=== PATIENT | male | born 1965 | race Hispanic/Latino ===

== ENCOUNTER 2016-08-20 14:58 | Emergency (ER) | payer OTHER ==
[~2016-08-20] VITALS: Ht 167.6 cm; Wt 85.9 kg
[~2016-08-20 14:58] MED LIST: GABA-502 PO; LACT10SO60 PO; LISI10TA PO; LORA-305 PO; LORA1TAB PO; METO50TA3 PO; PHEN100C11 PO; SERT100T9 PO
[2016-08-20 16:02] VITALS: BP 141/85; PULSE 89; RESP 18; O2SAT 96
--- NOTE | 2016-08-20 18:12 | ED.REPORT ---
HPI-General Illness Date of Service Aug 20, 2016 ED Provider: Niall Rhodes MD This patient is a 51 year old male with a history of alcohol abuse, delirium tremens, and withdrawal seizures presenting to the ED complaining of left-sided chest pain that started 1 week ago. He also complains of withdrawal symptoms. Pt. states he normally drinks 4-6 24oz of beer daily. His last drink was at 1000 this morning. He admits to nausea and leg/ankle pain but denies vomiting or hematochezia. The pt. is requesting Crisis admission for detox. Nursing Notes Stated Complaint: DETOX Chief Complaint: Substance Abuse Nursing Notes Reviewed: Yes Allergies: Coded Allergies: caffeine (Verified Adverse Reaction, Mild, raises my heart rate too high, 07/20/16) Scheduled Gabapentin (Gabapentin) 300 Mg Capsule 300 MG PO TID Lisinopril (Lisinopril) 10 Mg Tablet 10 MG PO DAILY Metoprolol Tartrate (Metoprolol Tartrate) 50 Mg Tablet 50 MG PO BID Phenytoin Sodium Extended (Phenytoin Sodium Extended) 100 Mg Capsule 100 MG PO BID Sertraline HCl (Sertraline) 100 Mg Tablet 200 MG PO DAILY Scheduled PRN Lactulose (Lactulose) 20 Gm/30 Ml Solution 20 GM PO Q6H PRN PRN confusion Lorazepam (Lorazepam) 1 Mg Tablet 1 MG PO HS PRN PRN For Insomnia Lorazepam (Ativan) 2 Mg Tablet 2 MG PO TID PRN PRN Withdrawal Symptoms General Time Seen by MD: 18:07 Chief Complaint Chest pain Hx Obtained From: Patient Arrived By: Walk-in Sudden in Onset?: No Onset Occurred: 1 week ago Context of Onset: EtOH use Symptom Duration: Since onset Recent Healthcare: Recent doctor visit, Recent hospitalization Similar Sx Previous: Yes Past Medical History Past Medical History Notes: Most recent ED visit 10 day hospital stay discharged 07/04 ED visit 12/18/2015 ETOH (no crisis beds), 12/13/15 ETOH and HTN (LWOBS), 11/2015 ED visits x3 for ETOH among others Past Medical History Alcoholism Depression Seizures secondary to withdrawal HTN- taking Metoprolol PTSD Delirium tremen Chronic dental infection Carpal tunnel syndrome Low back pain 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 Physical Exam Vital Signs Vital Signs Date Time Temp Pulse Resp B/P Pulse Ox O2 Delivery O2 Flow Rate FiO2 08/20/16 21:34 36.4 80 16 147/80 91 Room Air 08/20/16 21:17 36.4 80 16 147/80 91 Room Air 08/20/16 16:02 37.2 89 18 141/85 96 Room Air Initial VS: Reviewed General/Constitutional: Well-developed, Well-nourished Head / Eyes: Atraumatic, Normocephalic, PERRL ENT: Mucous membranes moist, Conjunctiva normal, No scleral icterus Neck: Supple, Non-tender, Full range of motion Cardiovascular: Regular rate & rhythm, Heart sounds normal, Intact distal pulses Abdomen / GI: Soft, Non-tender Extremities: Vascular intact, Neuro intact Skin: Warm, Dry, No cyanosis Neurologic: Alert, Oriented, Nonfocal Psychiatric: Mood/affect normal, Behavior normal, Normal thought content Respiratory / Chest: Atraumatic, Breath sounds NL, Breath sounds = bilat, No respiratory distress Reproducible L chest tenderness Interpretation & Diagnostics Lab Results Interpretation Result Diagram: 08/20/16192408/20/161924 Test 08/20/16 19:25 08/20/16 19:43 White Blood Count 4.2th/mm3 (3.8-10.1) Red Blood Count 4.32mil/mm3 (4.40-5.80) Hemoglobin 13.7g/dL (13.8-17.2) Hematocrit 38.1% (41.0-50.0) Mean Corpuscular Volume 88.2fL (81-100) Mean Corpuscular Hemoglobin 31.7pg (27.0-35.0) Mean Corpuscular Hemoglobin Concent 36.0% (32.0-37.0) Red Cell Distribution Width 13.3% (12.3-15.4) Platelet Count 94bil/L (150-400) Neutrophils (%) (Auto) 58.0% (40-74) Lymphocytes (%) (Auto) 25.1% (14-46) Monocytes (%) (Auto) 14.7% (4-12) Eosinophils (%) (Auto) 1.2% (0-5) Basophils (%) (Auto) 0.5% (0-3) Sodium Level 133mEq/L (134-144) Potassium Level 3.8mEq/L (3.5-5.2) Chloride Level 94mEq/L (97-108) Carbon Dioxide Level 20mmol/L (18-29) Blood Urea Nitrogen 2mg/dL (6-24) Creatinine 0.43mg/dL (0.76-1.27) Estimat Glomerular Filtration Rate 220mL/min (>59) Glucose Level 104mg/dL (60-99) Calcium Level 9.0mg/dL (8.5-10.1) Magnesium Level 1.6mg/dL (1.6-2.6) Total Bilirubin 0.8mg/dL (0.0-1.2) Aspartate Amino Transf (AST/SGOT) 189U/L (0-50) Alanine Aminotransferase (ALT/SGPT) 94U/L (0-44) Alkaline Phosphatase 110U/L (25-150) Troponin T < 0.010ug/L (0.0-0.011) Total Protein 7.6g/dL (6.4-8.4) Albumin 4.3g/dL (3.4-5.0) Hold Cervantes Top Tube Received (Received) Hold Urine Received (Received) ECG Interpretation ECG Interpretation: Sinus rhythm with a rate 77 Repolarization no changed from previous EKG dated 07/20/16 Time: 19:09 Interpreted by: ED physician X-Ray Chest Interpretation Chest Xray Interpretation: IMPRESSION: No acute cardiopulmonary disease. Dictated by: Samuel Ortiz M.D. on 08/20/2016 at 19:30 View: Portable, 1 view Interpretation / Wet Read by: Interpret - Radiologist Re-Eval/Medical Decision Med Decision/Clinical Course 51-year-old male history of alcohol abuse, withdrawal seizures, DTs, chronic chest pain presenting requesting detox. Last drink was this morning. There are no beds available at detox. He also complains of chronic chest pain. EKG unchanged. Troponins negative. Chest pain is reproducible and resolved with Toradol. Suspect musculoskeletal etiology of today's chest pain. Patient plans to continue drinking. I have given him the number for crisis Center that he may call tomorrow to see if they have any beds. Return precautions regarding any chest pain, if he stops drinking, signs symptoms withdrawal or any other neurologic symptoms. Source of Hx: Old records Time of Eval: 21:00 Patient Status: Condition improved Re-Evaluation/Progress Note: Ready for discharge. Told pt. to call [facility] tomorrow to see if they have any beds available since none are today. Pt. understands and agrees with plan. All questions have been addressed. Counseled Regarding: Diagnosis, Need for follow-up, When/why to return to ED Discharge & Departure Primary Impression: Alcohol intoxication Complication of substance-induced condition: uncomplicated Qualified Code: F10.120 - Alcohol abuse with intoxication, uncomplicated Additional Impression: Non-cardiac chest pain Disposition: Home Discharge Condition All VS Reviewed: Yes Condition: Stable Patient Instructions: Abuse of Alcohol (ED), Alcohol Intoxication (ED), Alcohol Withdrawal (ED) Additional Instructions: Thank you for entrusting us with your care today. Please call [facility] tomorrow to see if there are any available beds since none are available today. Come back to the emergency room if you experience worsening chest pain, shortness of breath, alcohol withdrawl symptoms, seizure, confusion, or any other new or concerning symptoms. Referrals: [facility] (PCP) [facility] Scribe Attestation Portions of this note were transcribed by Deven Valles and Piedad Pressley. I, Dr. Rhodes personally performed the history, physical exam and medical decision-making; I reviewed and confirmed the accuracy of the information in the transcribed note. Signed by: Deven Valles and Jerry Colindres, 2015 and 8. copies to: [facility] ; [facility] Niall Rhodes MD Aug 20, 2016 18:12 Bridget Pressley [Piedad] Aug 20, 2016 18:52 DEVEN VALLES Aug 20, 2016 21:25
[2016-08-20] MEDS ORDERED: Ketorolac 30 mg/mL 2 mL Inj IM ONE (18:55)
--- NOTE | 2016-08-20 19:32 | DRSVH ---
PROCEDURE: X-RAY CHEST ONE VIEW, PORTABLE ([id number]) INDICATIONS: 51 year-old male with left chest pain. TECHNIQUE: One view of the chest was acquired. COMPARISON: [facility], CR, XR CHEST 1VW (PORTABLE), 05/01/2016, 1:03. [facility], CR, XR CHEST 1VW (PORTABLE), 04/25/2016, 11:33. [facility], CR, XR CHEST 1VW (PORT ABLE), 02/26/2016, 21:14. FINDINGS: Surgical changes and devices: None. Lungs and pleura: No pleural effusions or pneumothorax. Lungs are clear. Mediastinum: Mediastinal contours appear normal. Heart size is normal. Bones and chest wall: No suspicious bony lesions. Overlying soft tissues appear unremarkable. IMPRESSION: No acute cardiopulmonary disease. Dictated by: Samuel Ortiz M.D. on 08/20/2016 at 19:30 Approved by: Samuel Ortiz M.D. on 08/20/2016 at 19:30
[2016-08-20 19:36] LABS: BASOPHILS % (AUTO) 0.5 % (0-3); EOSINOPHILS % (AUTO) 1.2 % (0-5); MONOCYTES % (AUTO) 14.7 % (4-12); Mean Corpuscular Hemoglobin 31.7 pg (27.0-35.0); Mean Corpuscular Volume 88.2 fL (81-100); Platelet Count 94 bil/L (150-400)
[2016-08-20 20:17] LABS: Magnesium 1.6 mg/dL (1.6-2.6)
[2016-08-20 20:28] LABS: TROPONIN T < 0.010 ug/L (0.0-0.011)
[2016-08-20 21:17] VITALS: BP 147/80; PULSE 80; RESP 16; O2SAT 91
[2016-08-20 21:34] VITALS: BP 147/80; PULSE 80; RESP 16; O2SAT 91
--- NOTE | 2016-08-31 17:34 | NUR ---
Late entry note from 08/20/15 ED DEVELOPMENTAL SERVICES WORKER note: D/A: Pt is a 51 year old male with history of alcohol abuse who presents to the ED with his counselor with request for detox services. DEVELOPMENTAL SERVICES WORKER consult requested. DEVELOPMENTAL SERVICES WORKER assisted pt in screening with crisis respite, however no bed was available. Last full chemical dependency assessment was completed 06/27 and as DEVELOPMENTAL SERVICES WORKER shift was ending fully CD assessment was not completed. Please reference full CD assessment from 06/27/16. P: Pt has prescreened with crisis respite however no beds are available. Pt continues to undergo medical detox and if discharged is instructed to follow up with crisis respite on a daily basis. ED MD aware and in agreement with plan. Ellis Yang MSW
== END 2016-08-20 21:41 | disposition home or self-care (01) ==
LOC: SED 14:58
DX: F10.120 Alcohol abuse with intoxication, uncomplicated (principal); R07.89 Other chest pain; I10 Essential (primary) hypertension; Z87.891 Personal history of nicotine dependence; Z59.0 Homelessness; F43.10 Post-traumatic stress disorder, unspecified
CPT/HCPCS: 36415; 71010; 80053; 83735; 84484; 85025; 93005; 96372; 99285; J1885

== ENCOUNTER 2016-08-23 12:21 | Emergency (ER) | payer OTHER ==
[2016-08-23 12:22] VITALS: BP 131/71; PULSE 73; RESP 15; O2SAT 99
--- NOTE | 2016-08-23 12:43 | ED.REPORT ---
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 Associated symptoms include melena and nausea. He reports that he had a few beers this morning. He denies vomiting, fever, or any other symptoms. His MILLY upon arrival is .274 Nursing Notes Stated Complaint: DIZZINESS Chief Complaint: General Complaint Nursing Notes Reviewed: Yes Allergies: Coded Allergies: caffeine (Verified Adverse Reaction, Mild, raises my heart rate too high, 07/20/16) Scheduled Gabapentin (Gabapentin) 300 Mg Capsule 300 MG PO TID Lisinopril (Lisinopril) 10 Mg Tablet 10 MG PO DAILY Metoprolol Tartrate (Metoprolol Tartrate) 50 Mg Tablet 50 MG PO BID Phenytoin Sodium Extended (Phenytoin Sodium Extended) 100 Mg Capsule 100 MG PO BID Sertraline HCl (Sertraline) 100 Mg Tablet 200 MG PO DAILY Scheduled PRN Lactulose (Lactulose) 20 Gm/30 Ml Solution 20 GM PO Q6H PRN PRN confusion Lorazepam (Lorazepam) 1 Mg Tablet 1 MG PO HS PRN PRN For Insomnia Lorazepam (Ativan) 2 Mg Tablet 2 MG PO TID PRN PRN Withdrawal Symptoms General Time Seen by MD: 12:42 Chief Complaint Dizziness Hx Obtained From: Patient Arrived By: Ambulance Sudden in Onset?: Yes Past Medical History Past Medical History Notes: Most recent ED visit 08/20/16 10 day hospital stay discharged 07/04 ED visit 12/18/2015 ETOH (no crisis beds), 12/13/15 ETOH and HTN (LWOBS), 11/2015 ED visits x3 for ETOH among others Past Medical History Alcoholism Depression Seizures secondary to withdrawal HTN- taking Metoprolol PTSD Delirium tremen Chronic dental infection Carpal tunnel syndrome Low back pain 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 Physical Exam Vital Signs Vital Signs Date Time Temp Pulse Resp B/P Pulse Ox O2 Delivery O2 Flow Rate FiO2 08/23/16 14:52 36.2 89 16 160/89 97 Room Air 08/23/16 12:22 36.8 73 15 131/71 99 Room Air Initial VS: Reviewed Head / Eyes: Atraumatic, Normocephalic Neck: Full range of motion Respiratory: Breath sounds normal, Clear to auscultation, No respiratory distress Cardiovascular: Regular rate & rhythm, Heart sounds normal, Intact distal pulses Extremities: Vascular intact, Neuro intact Skin: Warm, Dry General/Constitutional: Well developed Appearance / Presentation: Positive: Intoxicated Abdomen: No guarding Tenderness/Guarding/Rebound: Positive: Tender diffuse Interpretation & Diagnostics Lab Results Interpretation Result Diagram: 08/23/16 1302 08/23/16 1302 Test 08/23/16 13:02 08/23/16 13:20 White Blood Count 5.2th/mm3 (3.8-10.1) Red Blood Count 4.56mil/mm3 (4.40-5.80) Hemoglobin 14.5g/dL (13.8-17.2) Hematocrit 41.8% (41.0-50.0) Mean Corpuscular Volume 91.7fL (81-100) Mean Corpuscular Hemoglobin 31.8pg (27.0-35.0) Mean Corpuscular Hemoglobin Concent 34.7% (32.0-37.0) Red Cell Distribution Width 14.4% (12.3-15.4) Platelet Count 134bil/L (150-400) Neutrophils (%) (Auto) 59.1% (40-74) Lymphocytes (%) (Auto) 24.7% (14-46) Monocytes (%) (Auto) 12.9% (4-12) Eosinophils (%) (Auto) 1.0% (0-5) Basophils (%) (Auto) 0.8% (0-3) Prothrombin Time 10.4sec (8.1-12.5) Prothromb Time International Ratio 0.97ratio Sodium Level 138mEq/L (134-144) Potassium Level 4.1mEq/L (3.5-5.2) Chloride Level 99mEq/L (97-108) Carbon Dioxide Level 21mmol/L (18-29) Blood Urea Nitrogen 6mg/dL (6-24) Creatinine 0.61mg/dL (0.76-1.27) Estimat Glomerular Filtration Rate 147mL/min (>59) Glucose Level 104mg/dL (60-99) Calcium Level 8.8mg/dL (8.5-10.1) Total Bilirubin 0.5mg/dL (0.0-1.2) Aspartate Amino Transf (AST/SGOT) 217U/L (0-50) Alanine Aminotransferase (ALT/SGPT) 139U/L (0-44) Alkaline Phosphatase 111U/L (25-150) Total Protein 8.1g/dL (6.4-8.4) Albumin 4.6g/dL (3.4-5.0) Hold Urine Received (Received) Lab Results Interpretation: Tox screen positive for THC ECG Interpretation ECG Interpretation: Sinus rate 72 Time: 13:50 Interpreted by: ED physician Re-Eval/Medical Decision Time of Eval: 14:02 Re-Evaluation/Progress Note: Discussed plan for discharge if road test passed. Patient understands and agrees with plan. All questions addressed at this time. Time of Eval: 14:46 Re-Evaluation/Progress Note: Discussed discharge. Patient understands and agrees with plan. All questions addressed at this time. Counseled Regarding: Diagnosis, Lab results, Need for follow-up, When/why to return to ED Discharge & Departure Primary Impression: Dizziness Additional Impression: Alcohol intoxication Complication of substance-induced condition: uncomplicated Qualified Code: F10.120 - Alcohol abuse with intoxication, uncomplicated Disposition: Home Discharge Condition All VS Reviewed: Yes Condition: Improved Patient Instructions: Alcohol Intoxication (ED) Additional Instructions: No dangerous cause for your lightheadedness is discovered today. I strongly suspect that her alcohol consumption is playing a role here. Recommend he follow up with [facility] to help with your alcohol abuse. Follow-up with your primary care provider to discuss further investigation as needed. Referrals: [facility] (PCP) Scribe Attestation Portions of this note were transcribed by Clarice Duval. I, Dr. Harmon personally performed the history, physical exam and medical decision-making; I reviewed and confirmed the accuracy of the information in the transcribed note. Signed by: Clarice Duval 08/23/16, 1683 copies to: [facility] Chase Harmon MD Aug 23, 2016 12:43 CLARICE DUVAL Aug 23, 2016 13:43
[2016-08-23 13:07] LABS: BASOPHILS % (AUTO) 0.8 % (0-3); MONOCYTES % (AUTO) 12.9 % (4-12); Mean Corpuscular Hemoglobin 31.8 pg (27.0-35.0); Mean Corpuscular Volume 91.7 fL (81-100); NEUTROPHILS % (AUTO) 59.1 % (40-74); Platelet Count 134 bil/L (150-400)
[2016-08-23 13:10] LABS: INR 0.97 ratio
[2016-08-23 14:52] VITALS: BP 160/89; PULSE 89; RESP 16; O2SAT 97
== END 2016-08-23 14:54 | disposition home or self-care (01) ==
LOC: EDBD 12:21 → SED 12:21
DX: R42 Dizziness and giddiness (principal); F10.120 Alcohol abuse with intoxication, uncomplicated; I10 Essential (primary) hypertension; Z87.891 Personal history of nicotine dependence

== ENCOUNTER 2016-08-29 13:28 | Emergency (ER) | payer MEDICAID, OTHER ==
[~2016-08-29] VITALS: Ht 172.7 cm; Wt 83.2 kg
[2016-08-29 13:31] VITALS: BP 127/80; PULSE 77; RESP 16; O2SAT 98
== END 2016-08-29 14:21 | disposition left against medical advice (07) ==
LOC: SED 13:28
DX: Z53.21 Procedure and treatment not carried out due to patient leaving prior to being seen by health care provider (principal)

== ENCOUNTER 2016-09-25 16:33 | Inpatient (IN) | payer OTHER ==
[~2016-09-25] VITALS: Ht 167.6 cm; Wt 78.5 kg
[2016-09-25] VITALS (9 sets, daily range): BP systolic 123–155; BP diastolic 60–67; PULSE 73–86; RESP 18–24; O2SAT 91–96
--- NOTE | 2016-09-25 16:30 | ED.REPORT ---
HPI-Seizure Date of Service Sep 25, 2016 ED Provider: Nursing Notes Stated Complaint: ALCOHOL WITHDRAWAL Allergies: Coded Allergies: caffeine (Verified Adverse Reaction, Mild, raises my heart rate too high, 08/29/16) Scheduled Gabapentin (Gabapentin) 300 Mg Capsule 300 MG PO TID Lisinopril (Lisinopril) 10 Mg Tablet 10 MG PO DAILY Metoprolol Tartrate (Metoprolol Tartrate) 50 Mg Tablet 50 MG PO BID Phenytoin Sodium Extended (Phenytoin Sodium Extended) 100 Mg Capsule 100 MG PO BID Sertraline HCl (Sertraline) 100 Mg Tablet 200 MG PO DAILY Scheduled PRN Lactulose (Lactulose) 20 Gm/30 Ml Solution 20 GM PO Q6H PRN PRN confusion Lorazepam (Lorazepam) 1 Mg Tablet 1 MG PO HS PRN PRN For Insomnia Lorazepam (Ativan) 2 Mg Tablet 2 MG PO TID PRN PRN Withdrawal Symptoms Past Medical History Past Medical History Notes: Most recent ED visit 08/20/16 10 day hospital stay discharged 07/04 ED visit 12/18/2015 ETOH (no crisis beds), 12/13/15 ETOH and HTN (LWOBS), 11/2015 ED visits x3 for ETOH among others Past Medical History Alcoholism Depression Seizures secondary to withdrawal HTN- taking Metoprolol PTSD Delirium tremen Chronic dental infection Carpal tunnel syndrome Low back pain 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
[2016-09-25] MEDS ORDERED: Thiamine Inj 100 MG, Folic Acid Inj 1 MG, Magnesium Sulfate 50% Inj 2 GM, Multivitamins... IV ONE ×10 (16:40→21:30)
[2016-09-25 17:09] LABS: BASOPHILS % (AUTO) 0.5 % (0-3); EOSINOPHILS % (AUTO) 0.2 % (0-5); MONOCYTES % (AUTO) 13.8 % (4-12); Mean Corpuscular Volume 96.9 fL (81-100); NEUTROPHILS % (AUTO) 58.7 % (40-74); Platelet Count 143 bil/L (150-400)
--- NOTE | 2016-09-25 18:34 | ED.REPORT ---
HPI-General Illness Date of Service Sep 25, 2016 ED Provider: Brenton Smith MD Pt is a 51 year old male well known in this department with a hx of EtOH abuse, alcohol withdrawal seizures and HTN presenting to the ED via EMS after a witnessed seizure just prior to arrival. He reports being very tremulous, and denies nausea, vomiting, or other complaints. Medics gave 5mg versed en route. He reports last drinking EtOH 2 or 3 days ago. Nursing Notes Stated Complaint: ALCOHOL WITHDRAWAL Chief Complaint: Substance Abuse Nursing Notes Reviewed: Yes Allergies: Coded Allergies: caffeine (Verified Adverse Reaction, Mild, raises my heart rate too high, 08/29/16) Scheduled Gabapentin (Gabapentin) 300 Mg Capsule 300 MG PO TID Lisinopril (Lisinopril) 10 Mg Tablet 10 MG PO DAILY Metoprolol Tartrate (Metoprolol Tartrate) 50 Mg Tablet 50 MG PO BID Phenytoin Sodium Extended (Phenytoin Sodium Extended) 100 Mg Capsule 100 MG PO BID Sertraline HCl (Sertraline) 100 Mg Tablet 200 MG PO DAILY Scheduled PRN Lactulose (Lactulose) 20 Gm/30 Ml Solution 20 GM PO Q6H PRN PRN confusion Lorazepam (Lorazepam) 1 Mg Tablet 1 MG PO HS PRN PRN For Insomnia Lorazepam (Ativan) 2 Mg Tablet 2 MG PO TID PRN PRN Withdrawal Symptoms General Time Seen by MD: 16:36 Chief Complaint Seizure Hx Obtained From: Patient, EMS Arrived By: Ambulance Sudden in Onset?: Yes Onset Occurred: Just prior to arrival Context of Onset: EtOH use Severity: Current: No pain currently Severity: Maximum: No pain Recent Healthcare: No recent doctor visit, No recent hospitalization Similar Sx Previous: Yes Past Medical History Past Medical History Notes: Most recent ED visit 08/20/16 10 day hospital stay discharged 07/04 ED visit 12/18/2015 ETOH (no crisis beds), 12/13/15 ETOH and HTN (LWOBS), 11/2015 ED visits x3 for ETOH among others Past Medical History Alcoholism Depression Seizures secondary to withdrawal HTN- taking Metoprolol PTSD Delirium tremen Chronic dental infection Carpal tunnel syndrome Low back pain 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 Physical Exam Vital Signs Vital Signs Date Time Temp Pulse Resp B/P Pulse Ox O2 Delivery O2 Flow Rate FiO2 09/25/16 19:18 73 19 150/63 95 Room Air 09/25/16 18:30 75 22 155/67 94 Room Air 09/25/16 18:00 73 20 140/66 95 Room Air 09/25/16 17:30 74 21 134/60 95 Room Air 09/25/16 17:00 79 23 134/65 96 Room Air 09/25/16 16:35 86 24 123/64 91 Room Air Initial VS: Reviewed ENT: Mucous membranes moist, Conjunctiva normal, No scleral icterus Neck: Supple, Non-tender, Full range of motion Respiratory: Breath sounds normal, Clear to auscultation, No respiratory distress Abdomen / GI: Soft, Non-tender, No guarding, No rebound, No distention Extremities: Vascular intact, Neuro intact, No swelling, No tenderness Skin: Warm, Dry, No cyanosis Psychiatric: Mood/affect normal, Behavior normal, Normal thought content Tremulous Head / Eyes: Atraumatic, Normocephalic, PERRL, EOMI Cardiovascular: Regular rhythm, Heart sounds NL, No gallop, No murmurs, No rubs Heart Rate / Rhythm: Positive: Tachycardia Skin: No rash, Warm Diaphoretic Neurologic: Speech NL, No motor deficits, Cerebellar NL Mental Status: Positive: Disoriented to place Alert, oriented to person, month and year but not to place. Moving all extremities equally and normally. Initial CIWA score of 25. Interpretation & Diagnostics Lab Results Interpretation Result Diagram: 09/25/16 1655 09/25/16 1655 Test 09/25/16 16:51 09/25/16 16:55 Troponin T 0.010ug/L (0.0-0.011) Pro-B-Type Natriuretic Peptide 52.87pg/mL (0-121) White Blood Count 6.2th/mm3 (3.8-10.1) Red Blood Count 4.91mil/mm3 (4.40-5.80) Hemoglobin 16.2g/dL (13.8-17.2) Hematocrit 47.6% (41.0-50.0) Mean Corpuscular Volume 96.9fL (81-100) Mean Corpuscular Hemoglobin 33.0pg (27.0-35.0) Mean Corpuscular Hemoglobin Concent 34.0% (32.0-37.0) Red Cell Distribution Width 13.2% (12.3-15.4) Platelet Count 143bil/L (150-400) Neutrophils (%) (Auto) 58.7% (40-74) Lymphocytes (%) (Auto) 26.5% (14-46) Monocytes (%) (Auto) 13.8% (4-12) Eosinophils (%) (Auto) 0.2% (0-5) Basophils (%) (Auto) 0.5% (0-3) Sodium Level 135mEq/L (134-144) Potassium Level 4.0mEq/L (3.5-5.2) Chloride Level 88mEq/L (97-108) Carbon Dioxide Level 14mmol/L (18-29) Blood Urea Nitrogen 12mg/dL (6-24) Creatinine 0.75mg/dL (0.76-1.27) Estimat Glomerular Filtration Rate 116mL/min (>59) Glucose Level 122mg/dL (60-99) Calcium Level 9.9mg/dL (8.5-10.1) Total Bilirubin 1.2mg/dL (0.0-1.2) Aspartate Amino Transf (AST/SGOT) 142U/L (0-50) Alanine Aminotransferase (ALT/SGPT) 100U/L (0-44) Alkaline Phosphatase 101U/L (25-150) Total Protein 9.0g/dL (6.4-8.4) Albumin 5.5g/dL (3.4-5.0) Alcohol, Quantitative < 10mg/dL (0-10) Re-Eval/Medical Decision Med Decision/Clinical Course 48-year-old male with alcohol withdrawal seizure. Initial CIWA score of 25. Even a banana bag and IV Valium 5mg 3. Still has significant tremors and is not fully oriented. Will be admitted to the hospitalist service. Time of Eval: 19:14 Patient Status: Condition improved Re-Evaluation/Progress Note: CIWA score now 21. Consultation : Referral / Consult Name: Rc Mora MD Consulted With: Hospitalist Call Returned at: 19:41 Separating Machine Operator: Will see patient, Agrees with plan, Accepts admit Counseled Regarding: Diagnosis, Lab results, Need for follow-up, When/why to return to ED Discharge & Departure Primary Impression: Alcohol withdrawal Complication of substance-induced condition: with delirium Qualified Code: F10.231 - Alcohol dependence with withdrawal delirium Disposition: ADMITTED TO HOSPITAL Discharge Condition All VS Reviewed: Yes Condition: Improved Referrals: [facility] (PCP) [place] Attestation Portions of this note were transcribed by Ashley Salcedo. I, Dr. Smith personally performed the history, physical exam and medical decision-making; I reviewed and confirmed the accuracy of the information in the transcribed note. Signed by : Jerry Carvajal, 09/25/2016 and 1943. copies to: [facility] Brenton Smith MD Sep 25, 2016 18:34 ASHLEY SALCEDO Sep 25, 2016 18:39
[2016-09-25] MEDS ORDERED: Alum-Mag Hydrox-Simeth 30 mL Suspension PO PRN (20:45)
[2016-09-25] MEDS ORDERED: Ondansetron 2 mg/mL 2 mL Inj IVPUSH PRN (20:45)
[2016-09-25] MEDS ORDERED: Lactulose 20 Gm/30 mL 30 mL Syrup PO PRN (21:00)
--- NOTE | 2016-09-25 21:45 | NUR ---
Arrival Pt arrived on the floor via gurney. Awake and oriented x3. Severe tremors noted. Pt able to answer questions appropriately.
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
[2016-09-25 21:53] LABS: TROPONIN T 0.01 ug/L (0.0-0.011)
[2016-09-25] MEDS ORDERED: levETIRAcetam Inj 1,000 MG in 0.9% Sodium Chloride 100 ML IV ONE (22:15)
[2016-09-25] MEDS ORDERED: 0.9% Sodium Chloride 250 ML ONE (22:17)
[2016-09-25] MEDS: cloNIDine 0.1 mg Tablet PO PRN (22:54)
--- NOTE | 2016-09-25 23:00 | NUR ---
Admission Pt alert and oriented and able to answer questions. Was put on 2L O2 via nasal cannula and bed pads for seizure precautions are in place. Pt c/o constant BEEBE and pain in right ankle r/t fracture. Pt up to bed side commode but very unsteady due to severe tremors from withdrawal. Pt c/o diarrhea but passing mostly flatus on commode. Med rec not completed due to pt unable to provide dosages, will relay plan to day shift to complete med rec. Guaiac and MRSA samples have been sent to lab for analysis. Pt was informed to use call light when needing to use the commode and bed alarm is on.
[2016-09-25 23:29] LABS: INR 1.02 ratio
[2016-09-25 23:42] LABS: TROPONIN T 0.01 ug/L (0.0-0.011)
[2016-09-25 23:52] LABS: Magnesium 2.4 mg/dL (1.6-2.6); Phosphorus 3.5 mg/dL (2.5-4.9)
[2016-09-26] VITALS (7 sets, daily range): BP systolic 106–130; BP diastolic 52–66; PULSE 63–97; RESP 18–26; O2SAT 95–97
[2016-09-26] MEDS: Dexmedetomidine 400 mCg/100 mL NS Premix IV SCH ×2 (03:10→11:31)
[2016-09-26 05:12] LABS: Mean Corpuscular Hemoglobin 32.7 pg (27.0-35.0); Mean Corpuscular Volume 94.5 fL (81-100)
--- NOTE | 2016-09-26 06:19 | NUR ---
Shift Note Pt on CIWA protocol scoring highest if 23 and lowest of 14. Valium did not seem to be helping with severe tremors, was made aware and Precedex was ordered and started at 0.2-0.3mcg/kg/hr. Pt is on K/Mg protocol as well as seizure precautions, pads are in place. Liquid diet, tolerating ice water and apple juice. Guaiac, MRSA and urine samples sent to lab. Pt c/o BEEBE of 7/10 on pain scale on admittance, has dropped down to 0/10 recently. Has mild itch on lower back that comes and goes. Hx of suicide attempts but has signed no harm agreement. Med rec was not done, pt was unable to provide complete list. Pt informed on use of call light and bed alarm is on. Addendum: 09/26/16 at 0637 by NADINE BEARD Preceptor ARNOLDO JcasipiARNOLDO agree and verified student nurse note. Addendum: 09/26/16 at 0639 by ROGERIO ROBERSON RN Preceptor ARNOLDO Mccray verified and agree with note.
[2016-09-26] MEDS ORDERED: 0.9% Sodium Chloride 500 ML ONE (07:27)
[2016-09-26] MEDS: Multivit-Miner-Folic Acid-Iron Tablet PO SCH (08:59)
--- NOTE | 2016-09-26 09:08 | NUR ---
Social Work Note: Brief Note Data& Assessment: EMR reviewed. SW received order to meet with pt regarding Substance abuse. Dion Treviño is a 51 year old male admitted on 1965 for ETOH withdrawal with seizures after he ran out of money for alcohol 3 days ago. Pt has [employer] insurance coverage. Pt goes to [facility] for primary care. Pt lives in [place] alone and is independent at baseline. Per previous hospital admissions, pt has a hx of SI and long hx of ETOH use. Pt is experiencing tremors and high CIWA scores a this time with the lowest scores of 14. SW to meet with pt at bedside regarding CD assessment and resources when appropriate. [phone] Pt has a hx of transporting back home via [facility] transportation. SW to continue to follow for medical progression and CD assessment. Plan: Anticipated discharge back to previous living situation via [facility] transportation when medically ready. SW to continue to follow for medical progression and CD assessment. SALOME Petit
--- NOTE | 2016-09-26 10:28 | DRSVH ---
PROCEDURE: US ABDOMEN INDICATIONS: transmamintis TECHNIQUE: Real-time scanning was performed of the abdominal and retroperitoneal organs, with image documentatio n. COMPARISON: None. FINDINGS: Liver length: 17.58 cm Gallbladder Wall Thickness: 1.90 mm CHD: 2.60 mm CBD: 3 mm Spleen length: 10.57 cm Right kidney length: 10.77 cm Left kidney length: 9.82 cm Aorta(Proximal): 2.50 cm Aorta(Mid): 1.92 cm Aorta(Distal): 1.83 cm RCIA: 1.32 cm LCIA: 1.47 cm Liver: Liver is diffusely increased in echogenicity. No focal hepatic abnormalities identified. No rmal hepatic size. Gallbladder: Normal gallbladder. Biliary ducts: Intrahepatic bile ducts are non-dilated. Extrahepatic bile duct caliber is normal. Normal is 6-7 mm or less in diameter, or 10 mm or less post-cholecystectomy. Pancreas: Visualized portions of the pancreas are sonographically normal. Spleen: Spleen is normal in size and homogeneous in echotexture. Kidneys: Kidneys are normal in size and echotexture. No hydronephrosis or nephrolithiasis. No lawrence d masses. Aorta: Visualized aorta is normal in caliber at less than 3 cm. Iliacs: Proximal common iliac arteries are normal in caliber at less than 2.5 cm. IVC: Intrahepatic inferior vena cava is patent. Miscellaneous: No free abdominal fluid. IMPRESSION: Diffusely increased hepatic echotexture. This finding is most likely secondary to hepa tic fatty infiltration although other hepatocellular disease may have a similar appearance. Recommend clinical correlation.. Dictated by: Xavier CANALES Interpreted: Jefry Gastelum MD on 09/26/2016 at 10:27 Transcribed by: INDIRA on 09/26/2016 at 10:27 Approved by: Jefry Gastelum M.D. on 09/26/2016 at 12:44
--- NOTE | 2016-09-26 13:13 | NUR ---
Note Patient denied having pain, chest pain or discomfort. Patient remained disoriented to date. This morning he was not sure where he was and why. This afternoon patient seem more oriented to place- he stated: I know I am in the hospital. Patient was able to make his needs know and use his call light appropriately. He remained slightly unsteady on his feet and continued to required assist with transfer from bed to commode/chair. Patient was taking PO fluids and clear liquid diet well. He stated felling hungry- consulted with MD advance diet to soft. CIWA score under 10-Precedex drip infusion continued, Valium PRN when appropriate- MD aware.
--- NOTE | 2016-09-26 13:31 | DRSVH ---
[facility] [address] [place] [address] Echocardiogram Report Name: GONZALO YANCYE JStudy Date : 09/26/2016 Height: 66 in Hospital Exam Location: [facility] Weight: 171 lb Gender: Male BSA: 1.9 m2 : 1965 Age: 51 yrs BP: 121/66 mmHg Reason For Study: CHEST PAIN, PALPITATIONS Ordering Physician: Performed By: Juventino Garcia Interpretation Summary The left ventricle is normal in size. The ejection fraction is estimated to be 60-65%. The right ventricle is normal in size and function. No significant valvular pathology seen. Procedure: A two-dimensional transthoracic echocardiogram with color flow and Doppler was performed. The study quality was technically good. There is no prior echocardiogram noted for this patient. The patient was in normal sinus rhythm during the exam. Left Ventricle: The left ventricle is normal in size. There is normal left ventricular wall thickness. There is no thrombus. The ejection fraction is estimated to be 60-65%. There are no focal wall motion abnormalities. Spectral Doppler of the mitral valve shows a normal E/A wave ratio. Right Ventricle: The right ventricle is normal in size and function. Atria: Both atria are normal in size. The interatrial septum is intact with no evidence for an atrial septal defect. Mitral Valve: There is mild mitral annular calcification. There is trace mitral regurgitation. Aortic Valve: The aortic valve is trileaflet. The aortic valve opens well. There is no aortic valve stenosis. There is trace aortic regurgitation. Tricuspid Valve: The tricuspid valve is normal in structure and function. Pulmonary artery pressures cannot be estimated because of the lack of a measurable TR jet velocity. There is trace tricuspid regurgitation. Pulmonic Valve: The pulmonic valve is not well seen, but is grossly normal. There is trace pulmonic regurgitation. Great Vessels: The aortic root is normal size. The dimensions of the ascending aorta are normal. The pulmonary artery is normal size. The IVC is of normal diameter and collapses greater than 50% with a sniff. This suggests a low right atrial pressure of 3 mm Hg. Pericardium/ Pleura There is no pericardial effusion. There is no pleural effusion. MMode/2D Measurements & Calculations LVIDd: 4.3 cm LA dimension: 4.4 cm RA long axis Ao root diam LVIDs: 2.7 cm FS: 36.7 % LA A2 area: 21.0 cm RA area Aortic Jxn: 2.3 cm EPSS: 0.52 cm LA A4 area: 21.2 cm asc Aorta Diam IVSd: 0.75 cm LA length (vol) : 16.6 cm LVPWd: 0.80 cm RA vol Ao Arch Diam (Prox LA vol: 61.9 ml : 49.8 ml Trans): 2.7 cm LA vol index RA : 26.6 mm2 IVC diam: 1.5 cm LV hernadez. diameter/BSA LV sys. diameter/BSA RVD1 (basal) RVD2 (mid): 3.2 cm (cm/m^2): 2.3 (cm/m^2): 1.4 Doppler Measurements & Calculations Ao V2 max MV E max cuba MV E/A: 1.1 PA V2 max: 68.6 cm/sec : 157.6 cm/sec : 78.4 cm/sec Med Peak E' [place] PA mean P.2 mmHg Ao max PG MV A max cuba PA Accel Time: 0.10 sec : 9.9 mmHg : 69.2 cm/sec E/E' med: 10.7 Ao mean PG Pulm A Revs Dur : 5.9 mmHg MV A dur: 0.13 sec MV dec time Ao V2 mean PA V2 mean Pulm A Revs Dur - MV A : 0.19 sec : 116.4 cm/sec : 51.7 cm/sec Dur: -0.06 msec Ao V2 VTI: 32.3 cmPA pr(Accel) : 36.6 mmHg Reading Physician:JESSIKA
--- NOTE | 2016-09-26 13:45 | NUR ---
NUTRITION ASSESSMENT Assess: Pt is a 51 yo male admitted w/ ETOH withdrawl and seizures. Pt has a history of alcohol and marijuana abuse, and history of seizures. Pt on CIWA protocol with score progressively decreasing from 23 to 10. Pt was tolerating CL diet, and advanced to soft per MD. Pt has recent admissions, but wt appears relatively stable. PMHx: HTN, depression, acid reflux, chronic low back pain LABS: Reviewed. Na 130, Cl 94, Supervisor Frame Sample And Pattern 0.59, Gluc 115, AST 76, ALT 60, Alb 4.0 MEDICATIONS: Banana bag (x 2), vitamin, Vitamin B1, Pepcid CURRENT DIET: Soft PO 50% x 1 meal GI symptoms/stool: BM x 1 (09/25) some diarrhea noted SKIN: Hang 16 no other skin issues noted ANTHROPOMETRICS: Current Wt: 77.7 kg BMI: 27.6 kg/m2 IBW: 63.8 kg Previous Admit Wt: 79.3 kg (06/27) 2% wt loss in last 2 months ESTIMATED NEEDS: Calories: 8929-0096 kcal/day (25-30 kcal/kg BW) Protein: 80-95 g/day (1-1.0 g/kg BW) Fluids: ~2000 ml/day (1 kcal/ml/day) NUTRITION DIAGNOSIS: 1) Inadequate oral intake related to ETOH withdrawl as evidenced PO intake 50% and slight wt loss over last couple months. INTERVENTION: 1) Add Ensure to L&D trays. MONITOR/EVALUATE: Diet advancement, PO intake, GI, wt, labs, nutrition status, POC. Will continue to monitor per moderate nutritional risk guidelines. Addendum: 09/26/16 at [address] Student documentation reviewed and I agree with the above assessment. Nadine Hastings, MS, RDN, CD
--- NOTE | 2016-09-26 15:10 | NUR ---
spiritual care: pt request Visited with pt regarding themes of [place], addiction, and health. Offered a prayer and blessing before leaving the room. Spiritual care will continue to follow as needed.
--- NOTE | 2016-09-26 17:15 | NUR ---
Social Work Note: Attempted CD Assessment Data& Assessment: SW attempted to meet with pt at bedside regarding CD assessment. Pt requested that SW follow up for CD assessment another time due to not feeling well. SW to continue to follow. SW spoke to pt Rn [facility] Ara Hendricks who explained she plans to transport pt home when medically ready and plans to visit pt at bedside tomorrow 09/27/2016. SW confirmed that pt is agreeable to this plan. Pt denies any needs at this time. SW to continue to follow. Plan: Anticipated discharge home via SUSAN Hendricks when medically ready. SW to follow up with pt regarding CD assessment and resources. Pt denies any needs at this time. SW to continue to follow. SALOME Petit
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
[2016-09-27] VITALS (7 sets, daily range): BP systolic 128–166; BP diastolic 75–84; PULSE 64–76; RESP 16–21; O2SAT 94–96
[2016-09-27] MEDS: Dexmedetomidine 400 mCg/100 mL NS Premix IV SCH ×3 (01:28→16:29)
[2016-09-27 04:32] LABS: BASOPHILS % (AUTO) 0.4 % (0-3); EOSINOPHILS % (AUTO) 1.1 % (0-5); MONOCYTES % (AUTO) 10.1 % (4-12); Mean Corpuscular Volume 93.2 fL (81-100); NEUTROPHILS % (AUTO) 59.5 % (40-74); Platelet Count 72 bil/L (150-400)
--- NOTE | 2016-09-27 06:18 | NUR ---
Pt on precedex A&O X 2-[address] Noticable tremors and CIWA 10-15, valium given with moderate effect. Ate all of dinner and oral intake of juice around 1500. Good urine output. Afebrile, a bit hypertensive 160's systolic othe VSS. Was finally able to get some sleep with the additional titration of precedex and decreased stimulation. Appropriate and occasional forgetful and impulsive when needed to use the toilet. Will continue to support and monitor.
[2016-09-27] MEDS ORDERED: 0.9% Sodium Chloride 250 ML ONE (07:31)
[2016-09-27 08:11] LABS: Vitamin B12 603 pg/mL (211-946)
[2016-09-27] MEDS: Multivit-Miner-Folic Acid-Iron Tablet PO SCH (08:55)
[2016-09-27 11:07] LABS: Hepatitis A Antibody IgM Negative (Negative); Hepatitis B Core Antibody IgM Negative (Negative)
--- NOTE | 2016-09-27 12:38 | NUR ---
CIWA/comfort level Patient denied having pain or discomfort today. Precedex drip remained at 0.7mcg/kg/k- CIWA score was 5-8. Patient stated felling overall better however his upper extremely tremors continued especially with arms extended. Patient was able to use his call light but continued to require assist with transfer from bed to chair/commode
--- NOTE | 2016-09-27 22:15 | PCM.PNMED ---
Subjective Date of Service Sep 27, 2016 Subjective Mr. 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 Today is hospital day 3. Overnight: CIWA score 10-15 This morning he has a dry mouth and continues to have tremors. He denies blood in his stools and dark, tarry stools. He does not have fever, chills, cough, or dysuria. He reports a history of liver problems from alcohol. Exam Vital Signs Vital Sign - Last Date Time Temp Pulse Resp B/P Pulse Ox O2 Delivery O2 Flow Rate FiO2 09/27/16 20:00 67 09/27/16 19:30 36.6 16 143/78 96 Room Air 09/27/16 07:30 2.00 Intake and Output 09/26/16 09/26/16 09/27/16 Cumulative From/Thru 15:00 23:00 07:00 09/25/16 19:03 - 09/27/16 04:30 Intake Total 1842 ml 397 ml 6378 ml Output Total 2400 ml 2001 ml 5051 ml Balance -558 ml -1604 ml 1327 ml Intake Oral 1550 ml 4356 ml IV Total 292 ml 397 ml 2022 ml Output Urine Total 1800 ml 2000 ml 4450 ml Urine/Stool Mix 600 ml 1 ml 601 ml # Voids 5 5 11 # Bowel Movements 1 1 3 Exam General: No acute distress, well-developed, well-nourished HEENT: Normocephalic, atraumatic. External ears without defect. Pupils equal, round, and reactive to light and accommodation. Anicteric sclerae, moist conjunctivae, and no lid lag. Oropharynx free of erythema and cobble stoning with moist mucosa. Neck: Supple with full range of motion. No jugular venous distension. No bruits. No lymphadenopathy or thyromegaly. Cardiovascular: Regular rate and rhythm with no murmurs, rubs, or gallops appreciated Pulmonary: Clear to auscultation bilaterally with no crackles, wheezes, or rhonchi. Normal respiratory effort with no use of accessory muscles. Abdomen: Mild right upper quadrant tenderness. Bowel tones present. Soft, nondistended. No hepatosplenomegaly or masses appreciated. Extremities: No clubbing, cyanosis, edema, or lymphadenopathy appreciated. Skin: Normal temperature, turgor, and texture; no rash, ulcers, or subcutaneous nodules appreciated. Neurological: Tremor. No asterixis. Cranial nerves grossly intact. Normal muscle strength, tone, and bulk. Reflexes, coordination, and sensory function within normal limits. No known gait impairment. Psychiatric: Normal mood and affect. Alert and oriented to person, place, and time. IVs and Medications Medications Reviewed: Medications were reviewed in detail Lab and Diagnostics Result Diagram: 09/27/1640409/27/16404 X-Rays, CTs and MRIs PROCEDURE: US ABDOMEN IMPRESSION: Diffusely increased hepatic echotexture. This finding is most likely secondary to hepatic fatty infiltration although other hepatocellular disease may have a similar appearance. Recommend clinical correlation.. Approved by: Jefry Gastelum M.D. on 09/26/2016 at 12:44 Cardiac Echo Impressions Echocardiogram Report Interpretation Summary The left ventricle is normal in size. The ejection fraction is estimated to be 60-65%. The right ventricle is normal in size and function. No significant valvular pathology seen. Reading Physician:PM Assessment & Plan Mr. 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 1. Recurrent Alcohol withdrawal with likely recurrent alcohol withdrawal seizure , present on admission. Active. -Patient was taking phenytoin at home but not regularly. He had stopped drinking alcohol abruptly for 2 days prior to his reported seizure. Hospitalized in June and July in 2015. -Phenytoin level low and below therapeutic level -Most likely his seizure activity was secondary to alcohol withdrawal -[facility] protocol -Clonidine as needed -Continue Keppra 2. Cirrhosis, chronic, present on admission. Active. -Likely secondary to alcohol abuse -Madrey discriminate score equals -8 -Mildly elevated transaminases -Abdominal ultrasound shows increased hepatic echotexture -Ammonia level 57, mildly elevated -Consider resuming home lactulose, but monitor patient's mental status for now 3. Heart palpitations, acute, present on admission. -Probably secondary to alcohol withdrawal -Serial troponin negative -Echocardiogram shows normal ejection fraction, normal left and right ventricular function, and no valvular pathology -BNP and TSH within normal limits 4. Right upper quadrant tenderness and transaminitis, chronic, present on admission (probable alcohol-induced hepatitis). Improving. -See #2 above, probable alcohol-induced hepatitis -Abdominal ultrasound as above -AST 142, ALP 100 initially but improving to AST 67, ALC 54 today -Viral hepatitis panel negative -Continue to monitor complete metabolic panel 5. Mild thrombocytopenia, chronic, present on admission. -Likely secondary to #2 above -Platelets 72,000 today -PT, PTT within normal limits -Triglycerides 97, LDL 102 -Lipase mildly elevated at 65 6. Acute metabolic acidosis, present on admission. Improved. -Normal saline 1000 mL x2 and valium in the emergency department -Monitor with CMP 7. Elevated protein, recurrent, present on admission. -Pending SPEP/upep, no anemia 8. Blood per rectum without anemia, present on admission. Resolved. -Pt denies blood per rectum today -Continue famotidine -Fecal occult was negative -Continue to monitor CBC in the morning and monitor for dark or bloody stools Chronic issues known prior to admission, present on admission: Hypertension -Hold lisinopril because of transaminitis, continue metoprolol Depression -Continue sertraline Acid reflux -Continue famotidine Chronic low back pain, degenerative changes DVT prophylaxis scd ambulate, mild thrombocytopenia Code full Disposition inpatient ICU monitoring VTE Mechanical Devices: Intermittant Pneumatic CD Resuscitation Status: CPR: Attempt Resuscitation Time spent 30 minutes Attending Statement Patient seen and examined with housestaff, agree with all attached documentation. Armida Thompson DO Sep 27, 2016 22:15 Charly Bowles MD Sep 28, 2016 09:55
[2016-09-28] VITALS: BP 148/68; PULSE 62; RESP 17; O2SAT 96
[2016-09-28] MEDS: Dexmedetomidine 400 mCg/100 mL NS Premix IV SCH ×6 (00:37→23:57)
[2016-09-28 03:58] LABS: Mean Corpuscular Hemoglobin 33.2 pg (27.0-35.0); Platelet Count 88 bil/L (150-400)
[2016-09-28 03:59] LABS: BASOPHILS % (AUTO) 0.2 % (0-3); EOSINOPHILS % (AUTO) 1.9 % (0-5); MONOCYTES % (AUTO) 12.9 % (4-12); NEUTROPHILS % (AUTO) 60.6 % (40-74)
[2016-09-28 04:00] VITALS: BP 147/84; PULSE 62; RESP 18; O2SAT 94
--- NOTE | 2016-09-28 05:31 | NUR ---
CIWA, Vs as noted. Increasingly confused through the night. Pulling off leads. Up out of bed without calling for assistance. D/ayesha one IV. Precedex gtt titrated up to 1.4mcg/kg/h with some improvement but requires reorientation when he first wakes up. [place] alarm in place. Up to bedside to void per urinal. Total uop this shift 2700ml. Taking fluids without difficulties.
[2016-09-28 07:38] VITALS: BP 169/90; PULSE 56; PULSE 57; RESP 18; O2SAT 95
[2016-09-28] MEDS ORDERED: 0.9% Sodium Chloride 250 ML ONE (07:47)
[2016-09-28] MEDS: cloNIDine 0.1 mg Tablet PO PRN ×3 (07:50→16:12)
[2016-09-28] MEDS: Multivit-Miner-Folic Acid-Iron Tablet PO SCH (07:51)
--- NOTE | 2016-09-28 10:58 | NUR ---
Social Work: Continued Discharge Planning D: Pt discussed in am rounds. Pt is not improving and continues to be on CIWA with score betweej 12-14 over night. Per RN notes, pt was increasingly confused, pulling leads and calling out. Pt currently on Precedex gtt which has kept him sedated. Pt is not appropriate for CD assessment at this time. Pt has been up to the [facility] [facility]. Pt is I at baseline and his CM Ara Hendricks, , who will be transporting the pt home when ready. A: Pt who is I at base. P: Anticipate pt to discharge home via POV once medically stable; SUSAN Hendricks to transport. KEYBOARD INSTRUMENT REPAIRER to continue to follow and attempt CD assessment with pt once he is medically stable. SALOME Dyer
--- NOTE | 2016-09-28 11:06 | NUR ---
Agitation/hypertension Patient sleeping on off-occasional outbursts of agitation with patient wanting to leave- patient was able to calm down after some talking/persuading. Patient was disoriented to place, date/day and persona this morning. He asked about the day of the week and was reoriented PRN. Patient stated that he gets his check on Saturday and wanted to leave again. Consulted with [facility] Director- patient cannot leave AMA based on the circumstances of his admit to the hospital. Dose of Catapres 0.1mg PO was given this morning, continue Precedex IV infusion, will administer Valium PRN per [facility] protocol if required -continue assessment. Patient was hypertensive through early childhood worker beginning of the shift. Heart rate was SB 55-60 when asleep and SR 60-70s when awake- consulted with MD -morning dose of metoprolol 50mg PO was given- BP improved- please see CCU flow sheet for vitals and details.
[2016-09-28 11:27] VITALS: BP 161/75; PULSE 62; RESP 16; O2SAT 94
--- NOTE | 2016-09-28 11:34 | PCM.PNMED ---
Subjective Date of Service Sep 28, 2016 Subjective Mr. 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 Overnight: CIWA score 16 and 20. This morning, he states that he is ready to leave and would like to go to [facility]. He denies having any pain and reports that his tremor has improved. Exam Vital Signs Vital Sign - Last Date Time Temp Pulse Resp B/P Pulse Ox O2 Delivery O2 Flow Rate FiO2 09/28/16 04:00 36.7 62 18 147/84 94 09/28/16 00:00 Room Air 09/27/16 07:30 2.00 Intake and Output 09/27/16 09/27/16 09/28/16 Cumulative From/Thru 15:00 23:00 07:00 09/25/16 19:03 - 09/28/16 05:50 Intake Total 2423 ml 910 ml 9711 ml Output Total 2700 ml 2700 ml 02461 ml Balance -277 ml -1790 ml -740 ml Intake Oral 2150 ml 600 ml 7106 ml IV Total 273 ml 310 ml 2605 ml Output Urine Total 2700 ml 2700 ml 9850 ml Urine/Stool Mix 601 ml # Voids 5 16 # Bowel Movements 1 4 Exam General: Anxious. No acute distress, well-developed, well-nourished HEENT: Normocephalic, atraumatic. External ears without defect. Pupils equal, round, and reactive to light and accommodation. Anicteric sclerae, moist conjunctivae, and no lid lag. Oropharynx free of erythema and cobble stoning with moist mucosa. Neck: Supple with full range of motion. No jugular venous distension. No bruits. No lymphadenopathy or thyromegaly. Cardiovascular: Regular rate and rhythm with no murmurs, rubs, or gallops appreciated Pulmonary: Clear to auscultation bilaterally with no crackles, wheezes, or rhonchi. Normal respiratory effort with no use of accessory muscles. Abdomen: Mild right upper quadrant tenderness. Bowel tones present. Soft, nondistended. No hepatosplenomegaly or masses appreciated. Extremities: No clubbing, cyanosis, edema, or lymphadenopathy appreciated. Skin: Normal temperature, turgor, and texture; no rash, ulcers, or subcutaneous nodules appreciated. Neurological: Tremor. No asterixis. Cranial nerves grossly intact. Normal muscle strength, tone, and bulk. Reflexes, coordination, and sensory function within normal limits. No known gait impairment. Psychiatric: Alert and oriented to person, place, and time. IVs and Medications Medications Reviewed: Medications were reviewed in detail Lab and Diagnostics Result Diagram: 09/28/1633409/28/16334 X-Rays, CTs and MRIs PROCEDURE: US ABDOMEN IMPRESSION: Diffusely increased hepatic echotexture. This finding is most likely secondary to hepatic fatty infiltration although other hepatocellular disease may have a similar appearance. Recommend clinical correlation.. Approved by: Jefry Gastelum M.D. on 09/26/2016 at 12:44 Cardiac Echo Impressions Echocardiogram Report Interpretation Summary The left ventricle is normal in size. The ejection fraction is estimated to be 60-65%. The right ventricle is normal in size and function. No significant valvular pathology seen. Reading Physician:PM Assessment & Plan Mr. 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 1. Recurrent Alcohol withdrawal with likely recurrent alcohol withdrawal seizure , present on admission. Active. -Patient was taking phenytoin at home but not regularly. He had stopped drinking alcohol abruptly for 2 days prior to his reported seizure. Hospitalized in June and July in 2016. -Phenytoin level low and below therapeutic level -Most likely his seizure activity was secondary to alcohol withdrawal -[facility] protocol -Clonidine as needed -Continue Keppra for now. -Possible underlying seizure disorder reported in outpatient PCP notes regarding seizure medications started at a treatment center in [facility] with Brendan. He had a previous referral to neurology in 2016 to investigate whether he has a seizure disorder or his seizures are related to alcohol withdrawal, but further work-up has not yet been obtained. Patient will need a neurology evaluation as an outpatient -Called Ara Hendricks his porter sample case at outpatient [facility] to discuss his case further. It is an outpatient rehabilitation and mental health service. She sees him at his own home everyday except for weekends. If he is discharged on a weekday, she will come to pick him up to take him home, which is preferred. 2. Cirrhosis, chronic, present on admission. Active. -Likely secondary to alcohol abuse -Madrey discriminate score equals -8 -Mildly elevated transaminases -Abdominal ultrasound shows increased hepatic echotexture -Ammonia level 57, mildly elevated 3. Heart palpitations, acute, present on admission. -Probably secondary to alcohol withdrawal -Serial troponin negative -Echocardiogram shows normal ejection fraction, normal left and right ventricular function, and no valvular pathology -BNP and TSH within normal limits 4. Right upper quadrant tenderness and transaminitis, chronic, present on admission (probable alcohol-induced hepatitis). Improving. -See #2 above, probable alcohol-induced hepatitis -Abdominal ultrasound as above -AST 142, ALP 100 initially but improving to AST 48, ALT 52 today -Viral hepatitis panel negative -Continue to monitor complete metabolic panel 5. Mild thrombocytopenia, chronic, present on admission. -Likely secondary to #2 above -Platelets 72,000 today -PT, PTT within normal limits -Triglycerides 97, LDL 102 -Lipase mildly elevated at 65 6. Acute metabolic acidosis, present on admission. Improved. -Normal saline 1000 mL x2 and valium in the emergency department -Monitor with CMP 7. Elevated protein, recurrent, present on admission. -Pending SPEP/upep, no anemia 8. Blood per rectum without anemia, present on admission. Resolved. -Pt denies blood per rectum today -Continue famotidine -Fecal occult was negative -Continue to monitor CBC in the morning and monitor for dark or bloody stools 9. Acute metabolic encephalopathy. POA. Improving. Chronic issues known prior to admission, present on admission: Hypertension -Resumed home lisinopril because of improved liver enzymes and acutely elevated blood pressure today -If patient's blood pressure remains elevated with systolic blood pressure >180 and HR >60, then labetalol 20 mg IV as needed is ordered. Depression -Continue sertraline Acid reflux -Continue famotidine Chronic low back pain, degenerative changes DVT prophylaxis scd ambulate, mild thrombocytopenia Code full Disposition inpatient ICU monitoring Pain Evaluation: Adequate Pain Control VTE Mechanical Devices: Intermittant Pneumatic CD Resuscitation Status: CPR: Attempt Resuscitation Time spent 40 minutes Attending Statement Patient seen and examined with house staff. Agree with all attached documentation. Armida Thompson DO Sep 28, 2016 06:45 Charly Bowles MD Sep 29, 2016 07:38
[2016-09-28 15:38] VITALS: BP 150/81; PULSE 63; RESP 22; O2SAT 96
--- NOTE | 2016-09-28 16:27 | NUR ---
Hallucinations Attempted to wean down- Precedex drip from 1.4mcg/kg/h to 1.2mcg/kg/h. In less than 1h patient started to became progressively more agitated and fidgeting. Patient was picking on his linens an, IV lines and monitoring leads. Patient started to hallucinate and imagine things. Patient stated: close the door, someone may come in and still things form my house. Patient was reoriented, frequent monitoring, Precedex drip increased to 1.4mcg/kg/h, Catapres 0.1mg PO PRN.
[2016-09-28] MEDS ORDERED: Labetalol 5 mg/mL 4 mL Inj IVPUSH ONE (18:25)
--- NOTE | 2016-09-28 18:48 | NUR ---
Hypertension Patients hypertension returned this evening. Earlier today able to control elevated BP with schedule dose of metoprolol PO and Catapres PO- attributed elevated BP to elevated CIWA of 15. After Catapres PO and 10mg Valium IV were given CIWA decreased from 15 to 7-8 but patient continued to be hypertensive- consulted with MD HATCH resumed patients Zestril 10mgPO. Zestril 10mg PO was given- continue assessment.
[2016-09-28 20:00] VITALS: BP 121/65; PULSE 67; RESP 17; O2SAT 95
[2016-09-29] VITALS (7 sets, daily range): BP systolic 111–167; BP diastolic 61–87; PULSE 62–71; RESP 16–20; O2SAT 93–98
[2016-09-29] MEDS: cloNIDine 0.1 mg Tablet PO PRN ×2 (00:01→05:24)
[2016-09-29 03:05] LABS: BASOPHILS % (AUTO) 0.2 % (0-3)
[2016-09-29 03:13] LABS: EOSINOPHILS % (AUTO) 2.7 % (0-5); MONOCYTES % (AUTO) 15.1 % (4-12); Mean Corpuscular Volume 91.4 fL (81-100); NEUTROPHILS % (AUTO) 56.7 % (40-74); Platelet Count 105 bil/L (150-400)
[2016-09-29] MEDS: Dexmedetomidine 400 mCg/100 mL NS Premix IV SCH ×4 (03:40→15:16)
--- NOTE | 2016-09-29 05:28 | NUR ---
Hypertension, CIWA VS as noted. CIWA high 13. Cooperative and appropriate through the night without attempts to get out of bed or pull lines. Taking fluids and diet independently. Precedex 1.4mcg/kg/h unchanged. Complains of headache at times. Blood pressure with blood pressure as high as 180s/100s. Labetalol given x1 and catapress given x2 with some improvement. Voiding adequately per urinal. Tele sinus rhythm with hr 60s.
[2016-09-29] MEDS ORDERED: 0.9% Sodium Chloride 250 ML ONE (07:13)
[2016-09-29] MEDS: Multivit-Miner-Folic Acid-Iron Tablet PO SCH (07:35)
--- NOTE | 2016-09-29 09:30 | NUR ---
Headache, hallucinations Patient complained of headache 10/10 this morning- MD made aware- Tylenol single PO dose 650mg was given with AM medications. About 40min after Tylenol was given patient stated headache decreased to 2/10. Patient was oriented to placed and self but continued to hallucinate he was hearing voices in his room and persons crying- patient required frequent reorientation. Continue Precedex drip, continue assessment.
--- NOTE | 2016-09-29 16:41 | PCM.PNMED ---
Subjective Date of Service Sep 29, 2016 Subjective Mr. 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 Overnight: CIWA score 7-8 and 15. This morning, he reports hearing people talking and arguing in his room this morning. He denies any pain. He is eating and drinking fluids well. Exam Vital Signs Vital Sign - Last Date Time Temp Pulse Resp B/P Pulse Ox O2 Delivery O2 Flow Rate FiO2 09/29/16 15:38 Supplement Oxygen 09/29/16 15:38 71 09/29/16 15:38 36.8 17 111/62 98 09/27/16 07:30 2.00 Intake and Output 09/28/16 09/28/16 09/29/16 Cumulative From/Thru 15:00 23:00 07:00 09/25/16 19:03 - 09/29/16 05:27 Intake Total 2054 ml 1127 ml 11380 ml Output Total 2400 ml 1650 ml 78433 ml Balance -346 ml -523 ml -1609 ml Intake Oral 1650 ml 680 ml 9436 ml IV Total 404 ml 447 ml 3456 ml Output Urine Total 2400 ml 1650 ml 86049 ml Urine/Stool Mix 601 ml # Voids 3 19 # Bowel Movements 4 Exam General: Awake, alert, and oriented to person, place, and time. No acute distress, well-developed, well-nourished. HEENT: Normocephalic, atraumatic. External ears without defect. Pupils equal, round, and reactive to light and accommodation. Anicteric sclerae, moist conjunctivae, and no lid lag. Oropharynx free of erythema and cobble stoning with moist mucosa. Neck: Supple with full range of motion. No jugular venous distension. No bruits. No lymphadenopathy or thyromegaly. Cardiovascular: Regular rate and rhythm with no murmurs, rubs, or gallops appreciated Pulmonary: Clear to auscultation bilaterally with no crackles, wheezes, or rhonchi. Normal respiratory effort with no use of accessory muscles. Abdomen: Bowel tones present. Soft, nontender, nondistended. No hepatosplenomegaly or masses appreciated. Extremities: No clubbing, cyanosis, edema, or lymphadenopathy appreciated. Skin: Normal temperature, turgor, and texture; no rash, ulcers, or subcutaneous nodules appreciated. Neurological: Tremor. No asterixis. Cranial nerves grossly intact. Normal muscle strength, tone, and bulk. Reflexes, coordination, and sensory function within normal limits. Able to follow commands. No known gait impairment. Psychiatric: Alert and oriented to person, place, and time. IVs and Medications Medications Reviewed: Medications were reviewed in detail Lab and Diagnostics Result Diagram: 09/29/16 [id number]/29/16254 X-Rays, CTs and MRIs PROCEDURE: US ABDOMEN IMPRESSION: Diffusely increased hepatic echotexture. This finding is most likely secondary to hepatic fatty infiltration although other hepatocellular disease may have a similar appearance. Recommend clinical correlation.. Approved by: Jefry Gastelum M.D. on 09/26/2016 at 12:44 Cardiac Echo Impressions Echocardiogram Report Interpretation Summary The left ventricle is normal in size. The ejection fraction is estimated to be 60-65%. The right ventricle is normal in size and function. No significant valvular pathology seen. Reading Physician:PM Assessment & Plan Mr. 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 1. Recurrent Alcohol withdrawal with likely recurrent alcohol withdrawal seizure , present on admission. Active. -Patient was taking phenytoin at home but not regularly. He had stopped drinking alcohol abruptly for 2 days prior to his reported seizure. Hospitalized in June and July in 2015. -Phenytoin level low and below therapeutic level -Most likely his seizure activity was secondary to alcohol withdrawal -CIWA protocol, Valium as per CIWA protocol -Clonidine as needed -Possible underlying seizure disorder reported in outpatient PCP notes regarding seizure medications started at a treatment center in [facility] with Brendan. He had a previous referral to neurology in 2016 to investigate whether he has a seizure disorder or his seizures are related to alcohol withdrawal, but further work-up has not yet been obtained. -Called Ara Hendricks his counseling case manager at outpatient [facility] to discuss his case further. It is an outpatient rehabilitation and mental health service. She sees him at his own home everyday except for weekends. If he is discharged on a weekday, she will come to pick him up to take him home, which is preferred. -Stopped Keppra as it is unlikely that patient has a seizure disorder. His seizures are likely from alcohol withdrawal. 2. Cirrhosis, chronic, present on admission. Active. -Likely secondary to alcohol abuse -Madrey discriminate score equals -8 -Mildly elevated transaminases -Abdominal ultrasound shows increased hepatic echotexture -Ammonia level 88 -Hold lactulose as patient's hallucinations are related to his alcohol withdrawal rather than from hepatic encephalopathy. He is AAOx3 and able to follow commands. -Continue to monitor mental status and CMP 3. Mild thrombocytopenia, chronic, present on admission. -Likely secondary to #2 above -Platelets 105,000 today -PT, PTT within normal limits -Triglycerides 97, LDL 102 4. Heart palpitations, acute, present on admission. -Probably secondary to alcohol withdrawal -Serial troponin negative -Echocardiogram shows normal ejection fraction, normal left and right ventricular function, and no valvular pathology -BNP and TSH within normal limits 5. Right upper quadrant tenderness and transaminitis, chronic, present on admission (probable alcohol-induced hepatitis). Improving. -See #2 above, probable alcohol-induced hepatitis -Abdominal ultrasound as above -AST 142, ALP 100 initially but improving to AST 48, ALT 52 today -Viral hepatitis panel negative -Continue to monitor complete metabolic panel 6. Acute metabolic acidosis, present on admission. Improved. -Normal saline 1000 mL x2 and Valium in the emergency department -Monitor with CMP 7. Elevated protein, recurrent, present on admission. -Pending SPEP/upep, no anemia 8. Blood per rectum without anemia, present on admission. Resolved. -Pt denied blood per rectum yesterday -Continue famotidine -Fecal occult was negative -Continue to monitor CBC in the morning and monitor for dark or bloody stools 9. Acute metabolic encephalopathy. present on admission. Improving. -See #2 above Chronic issues known prior to admission, present on admission: Hypertension -Resumed home lisinopril because of improved liver enzymes and acutely elevated blood pressure today -If patient's blood pressure remains elevated with systolic blood pressure >180 and HR >60, then labetalol 20 mg IV as needed is ordered. Depression -Continue sertraline Acid reflux -Continue famotidine Chronic low back pain, degenerative changes DVT prophylaxis scd ambulate, mild thrombocytopenia Code full Disposition inpatient ICU monitoring VTE Mechanical Devices: Intermittant Pneumatic CD Resuscitation Status: CPR: Attempt Resuscitation Time spent 35 minutes Attending Statement Patient seen and examined with house staff. Agree with all attached documentation. Armida Thompson DO Sep 29, 2016 16:24 Charly Bowles MD Sep 30, 2016 07:32
--- NOTE | 2016-09-29 17:56 | NUR ---
Decreased Precedex drip Decreased CIWA 7-8- able to gradually decrease precede drip from 1.4mcg/kg/h to 0.8 mcg/kg/h with the patient remaining appropriate and able to follow commands. Patient remained forgetful but able to use his call light to let his need know. Patient continued to require assist with transfer from bed to a natalia of bedside commode because continued to shaking/tremors- frequent round, bed alarm on, continue assessment.
[2016-09-30] VITALS (9 sets, daily range): BP systolic 104–162; BP diastolic 52–81; PULSE 52–68; RESP 14–18; O2SAT 92–98
[2016-09-30 03:00] LABS: BASOPHILS % (AUTO) 0.2 % (0-3); EOSINOPHILS % (AUTO) 2.4 % (0-5); MONOCYTES % (AUTO) 18.1 % (4-12); Mean Corpuscular Hemoglobin 32.9 pg (27.0-35.0); Mean Corpuscular Volume 93.4 fL (81-100); NEUTROPHILS % (AUTO) 54.1 % (40-74); Platelet Count 153 bil/L (150-400)
--- NOTE | 2016-09-30 04:48 | NUR ---
CIWA Vs as noted. Weaning Precedex through the night from 0.8mcg/kg/h to 0.4mcg/kg/h. CIWA 2-4. Up to bedside commode q1-2 hours with one person assist for small amounts soft stool. Voiding per urinal. Blood pressure 100s to 120s systolic. Taking liberal amounts water and juice. Sats on room air mid 90s.
[2016-09-30] MEDS ORDERED: 0.9% Sodium Chloride 250 ML ONE ×2 (06:38→23:15)
[2016-09-30] MEDS: Dexmedetomidine 400 mCg/100 mL NS Premix IV SCH ×4 (06:43→18:00)
[2016-09-30] MEDS: Multivit-Miner-Folic Acid-Iron Tablet PO SCH (08:08)
--- NOTE | 2016-09-30 09:18 | NUR ---
CIWA/RESTLESSNESS CIWA score this morning of 9, patient is slightly more restless than on previous shift. Precedex gtt at 0.7 mcg/kg/hr, although patient still attempts to climb out of bed, and is very confused/disoriented this morning, requiring multiple cues as to where he is, what he's in the hospital for, etc... Will continue to monitor, give reminders to call for assistance.
--- NOTE | 2016-09-30 11:07 | PCM.PNMED ---
Subjective Date of Service Sep 30, 2016 Subjective Overnight: He has continued to require Precedex up to 0.7, with CIWA scores 2-4 at the lowest. He continues to be restless and agitated at times, trying to get out of bed. Today: He appears calm and has no complaints at this time. However, per nursing about 2 hours later, he became restless again and CIWA score increased to 9. Exam Vital Signs Vital Sign - Last Date Time Temp Pulse Resp B/P Pulse Ox O2 Delivery O2 Flow Rate FiO2 09/30/16 07:57 36.6 68 15 140/74 98 Room Air 09/27/16 07:30 2.00 Intake and Output 09/29/16 09/29/16 09/30/16 Cumulative From/Thru 15:00 23:00 07:00 09/25/16 19:03 - 09/30/16 06:20 Intake Total 2708 ml 1263 ml 99642 ml Output Total 2950 ml 1550 ml 78046 ml Balance -242 ml -287 ml -2138 ml Intake Oral 2350 ml 960 ml 16531 ml IV Total 358 ml 303 ml 4117 ml Output Urine Total 2950 ml 1550 ml 26417 ml Urine/Stool Mix 601 ml # Voids 5 24 # Bowel Movements 4 Exam General: Awake, alert, and oriented to person, place, and time. No acute distress, well-developed, well-nourished. HEENT: Normocephalic, atraumatic. External ears without defect. Pupils equal, round, and reactive to light and accommodation. Anicteric sclerae, moist conjunctivae, and no lid lag. O Neck: Supple with full range of motion. No jugular venous distension. No bruits. No lymphadenopathy or thyromegaly. Cardiovascular: Regular rate and rhythm with no murmurs, rubs, or gallops appreciated Pulmonary: Clear to auscultation bilaterally with no crackles, wheezes, or rhonchi. Normal respiratory effort with no use of accessory muscles. Abdomen: Bowel tones present. Soft, nontender, nondistended. No hepatosplenomegaly or masses appreciated. Extremities: No clubbing, cyanosis, edema, or lymphadenopathy appreciated. Skin: Normal temperature, turgor, and texture; no rash, ulcers, or subcutaneous nodules appreciated. Neurological: Tremor present. No asterixis. Cranial nerves grossly intact. Normal muscle strength, tone, and bulk. Psychiatric: Alert and oriented to person, place, and time. Lab and Diagnostics Result Diagram: 09/30/16 0245 09/30/16 0245 X-Rays, CTs and MRIs PROCEDURE: US ABDOMEN IMPRESSION: Diffusely increased hepatic echotexture. This finding is most likely secondary to hepatic fatty infiltration although other hepatocellular disease may have a similar appearance. Recommend clinical correlation.. Approved by: Jefry Gastelum M.D. on 09/26/2016 at 12:44 Cardiac Echo Impressions Echocardiogram Report Interpretation Summary The left ventricle is normal in size. The ejection fraction is estimated to be 60-65%. The right ventricle is normal in size and function. No significant valvular pathology seen. Reading Physician:PM Assessment & Plan Mr. 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 1. Recurrent Alcohol withdrawal, present on admission. Active. -He had stopped drinking alcohol abruptly for 2 days prior to his reported seizure. Hospitalized in June and July in 2015. Continues to be anxious and agitated intermittently. -Continue CIWA protocol with Valium -Precedex gtt for agitation. -Clonidine as needed 2. History of seizures. - Patient has a history of seizures, although whether this is due to a seizure disorder or alcohol withdrawal seizures is uncertain. Possible underlying seizure disorder reported in outpatient PCP notes regarding seizure medications started at a treatment center in [facility] with Brendan. He had a previous referral to neurology in 2016 to investigate whether he has a seizure disorder or his seizures are related to alcohol withdrawal, but further work-up has not yet been obtained. Patient was taking phenytoin at home but not regularly. Phenytoin level low and below therapeutic level -Stopped Keppra as it is unlikely that patient has a seizure disorder. His seizures are likely from alcohol withdrawal. 3. Cirrhosis, chronic, present on admission. Active. -Likely secondary to alcohol abuse -Madrey discriminate score equals -8 -Mildly elevated transaminases -Abdominal ultrasound shows increased hepatic echotexture -Ammonia level 88 -Hold lactulose as patient's hallucinations are related to his alcohol withdrawal rather than from hepatic encephalopathy. He is AAOx3 and able to follow commands. -Continue to monitor mental status and CMP 4. Mild thrombocytopenia, chronic, present on admission. -Likely secondary to #2 above -Platelets 105,000 today -PT, PTT within normal limits -Triglycerides 97, LDL 102 5. Heart palpitations, acute, present on admission. -Probably secondary to alcohol withdrawal -Serial troponin negative -Echocardiogram shows normal ejection fraction, normal left and right ventricular function, and no valvular pathology -BNP and TSH within normal limits 6. Right upper quadrant tenderness and transaminitis, chronic, present on admission (probable alcohol-induced hepatitis). Improving. -Probable alcohol-induced hepatitis -Abdominal ultrasound as above -AST 142, ALP 100 initially but improving -Viral hepatitis panel negative -Continue to monitor complete metabolic panel 7. Acute metabolic acidosis, present on admission. Improved. -Normal saline 1000 mL x2 and Valium in the emergency department -Monitor with CMP 8. Elevated protein, recurrent, present on admission. -Pending SPEP/upep, no anemia 9. Blood per rectum without anemia, present on admission. Resolved. -Pt denied blood per rectum yesterday -Continue famotidine -Fecal occult was negative -Continue to monitor CBC in the morning and monitor for dark or bloody stools 10. Acute metabolic encephalopathy. present on admission. Improving. -See #2 above Chronic issues known prior to admission, present on admission: Hypertension -Resumed home lisinopril because of improved liver enzymes and acutely elevated blood pressure today -If patient's blood pressure remains elevated with systolic blood pressure >180 and HR >60, then labetalol 20 mg IV as needed is ordered. Depression -Continue sertraline Acid reflux -Continue famotidine Chronic low back pain, degenerative changes Disposition: Called Ara Hendricks his trimming caser at outpatient [facility] to discuss his case further. It is an outpatient rehabilitation and mental health service. She sees him at his own home everyday except for weekends. If he is discharged on a weekday, she will come to pick him up to take him home, which is preferred. VTE Mechanical Devices: Intermittant Pneumatic CD Resuscitation Status: CPR: Attempt Resuscitation Time spent 30 min Attending Statement Patient seen and examined with housestaff. Agree with all attached documentation. Slim Alaniz Sep 30, 2016 11:07 Charly Bowles MD Oct 01, 2016 10:11
--- NOTE | 2016-09-30 16:00 | NUR ---
Impulsive/CIWA increased/Precedex gtt ordered up to 1.0mcg/kg/hr, plus prn Diazepam
--- NOTE | 2016-09-30 16:45 | NUR ---
Diazepam 10mg x3 required/pt OOB repeatedly
--- NOTE | 2016-09-30 18:00 | NUR ---
Diazepam 10mg x2 additional doses/CCU status Tele on due to high dose of Precedex/SB 48-56. Continuous pulse Ox for monitoring pt with significant IV Diazepam doses per CIWA. Requiring 1:1 bedside monitoring for pt safety; request for Sitter relayed to barrel waterer & Nurse Licensed Practical.
[2016-10-01 00:05] VITALS: BP 183/88; PULSE 58; RESP 14; O2SAT 96
[2016-10-01] MEDS: Dexmedetomidine 400 mCg/100 mL NS Premix IV SCH ×2 (00:05→05:46)
[2016-10-01 02:48] LABS: BASOPHILS % (AUTO) 0.2 % (0-3); EOSINOPHILS % (AUTO) 2.3 % (0-5); MONOCYTES % (AUTO) 22.2 % (4-12); Mean Corpuscular Hemoglobin 33.3 pg (27.0-35.0); Mean Corpuscular Volume 93.8 fL (81-100); NEUTROPHILS % (AUTO) 47.2 % (40-74); Platelet Count 159 bil/L (150-400)
--- NOTE | 2016-10-01 03:18 | NUR ---
neuro/ciwa pt drowsy but oriented times three, pt able to state the day of the week, month and year, devin, mumbled words with slight delay, pt able to void per urinal independently in bed, pt instructed on needing to use call light to call nurse for needs and not to climb out of bed, pt initially presents as though he would have unpredictable and impulsive behavior but has slept and been mostly coop, bed alarm on, ciwa 6-10, pt with moderate tremors with arms extended, no tremors noted when asleep, at nv pt was diaphoretic, valium dose given, effective with precedex infusing at 1mcg/kg/hr, pt has been sleeping most of the times since nv, precedex decreased to 0.7mcg/kg/hr, monitoring for effectiveness, pt admitted on 09/25/16, left forearm iv leaking and discontinued, right hand iv started-patent, noted that sbp on left arm approx 30mm hg higher then on right arm, bp continued on right arm, tele- sb/sr, hr 55-65, see ccu flow sheet for vitals, denies cp denies n/v denies pain denies sob, ls clear, decreased bases, resp rate teens, ra sats=mid to upper 90's, see ccu flow sheet, plan: wean meds as able, strengthening,
[2016-10-01 04:00] VITALS: BP 117/56; PULSE 62; RESP 13; O2SAT 95
[2016-10-01 08:05] VITALS: BP 127/68; PULSE 60; PULSE 61; RESP 13; O2SAT 99
[2016-10-01] MEDS: Multivit-Miner-Folic Acid-Iron Tablet PO SCH (09:13)
--- NOTE | 2016-10-01 10:33 | NUR ---
NUTRITION FOLLOW UP Assess: 51 YO M admitted to CCU with ETOH withdrawal and seizures. Pt with good PO intake. PMHx: HTN, depression, acid reflux, chronic low back pain LABS: Reviewed. Cr 0.53, Glu 122, AST 56, ALT 66 MEDICATIONS: Thiamine, Precedex. CURRENT DIET: Soft + supplements. PO intake 50-100%. GI: 1 BM 09/30. SKIN: Hang 16 no other skin issues noted ANTHROPOMETRICS: Current Wt: 78.5 kg, BMI: 27.9 kg/m2, IBW: 63.8 kg, Admit wt: 74.3 kg. Previous Admit Wt: 79.3 kg. ESTIMATED NEEDS: Calories: 8485-0921 kcal/day (25-30 kcal/kg BW) Protein: 80-95 g/day (1.0-1.2 g/kg BW) Fluids: ~2000 ml/day (1 kcal/ml/day) NUTRITION DIAGNOSIS: 1) Inadequate oral intake related to ETOH withdrawal as evidenced PO intake 50% and slight wt loss over last couple months.---RESOLVED. INTERVENTION: 1) Continue current diet as ordered. MONITOR/EVALUATE: PO intake, diet tolerance, GI, wt, labs, nutrition status, POC. Follow per moderate nutrition risk guidelines.
[2016-10-01 11:59] VITALS: BP 106/60; PULSE 69; RESP 16; O2SAT 99
--- NOTE | 2016-10-01 12:37 | NUR ---
Precedex/Activity Patient a/o x 4, denies pain, nausea or sob. Precedex gtt stopped at 0900, CIWA 6. Patient oob to chair most of this shift, showered with min assist and amb full length of halls, steady gait. Taking diet well. Tele SR 60's.
[2016-10-01 13:57] VITALS: BP 119/61; PULSE 74; RESP 16; O2SAT 97
--- NOTE | 2016-10-01 17:38 | NUR ---
Social Work Note: CD Assessment Current Circumstances: Dion Treviño is a 51 year old male admitted on 09/25/2016 for ETOH Withdrawl with seizures. SW met with pt at bedside to complete CD Assessment and assess for any other unmet needs. Pt explained that he ran out of money and did not drink for three days when he experienced a seizure and was brought to the ED. Hx of Substance Use: Pt has been consuming large amounts of alcohol for most of his adulthood, however, pt explained his alcohol intake had increased last September when his aunt . Pt sister 6 months later last summer. Pt preference is for "Hurricanes." Pt reports drinking three 24 oz Hurricanes daily, which pt estimates is the equivalent of 8 beers. Hx of programs/detox: Pt is currently enrolled in [facility] outpt tx for CD and MH. Pt states this has been very helpful for him and he has developed a good connection with his counselor. Pt was last at inpt treatment last September at [facility]. Pt is also participating in AA meetings and is hopeful to form sober friendships through that outlet. Hx of w/d symptoms: Pt reports seizures, shakes, and flu like symptoms. Family hx: NA Hx of sobriety and supports: Pt primary support is his SUSAN Hendricks through [facility] who is updated consistently per pt request and she will be transporting him home when medically ready. Patients perception of the consequences of use: Pt did not identify any specific consequences of his behavior. Pt did share that his step father who had previously been an important support in his life recently told pt that he hated him. This was emotionally distressing to pt as it is his only living relative left. Suicide Risk: Due depression diagnosis and hx of suicidal ideation, pt is at higher suicide risk. Pt denies any current or recent suicidal ideation. Pt denies any thoughts of harming himself or others. Pt stated that his antidepressants have been helping "a little bit" and counseling has "helped a lot." Motivation for tx: Pt did share his motivation to taper his alcohol use and reduce his intake slowly in order to withdrawal safely. Pt plans to continue outpt tx and hopes to attend more AA meetings in the near future. Discharge Plan: Anticipated discharge home via POV ([facility] SUSAN Hendricks [phone]) when medically ready with follow up with [facility] for outpt tx and AA. Pt denies any other needs at this time. SW to continue to follow if any needs arise. SALOME Petit
--- NOTE | 2016-10-01 18:44 | PCM.PNMED ---
Subjective Date of Service Oct 01, 2016 Subjective Overnight: Patient received Valium 15 mg and Precedex decreased to rate of 0.3. CIWA score of 6-10. Today, Mr. Treviño reports that he is feeling much better and is ready to continue treatment as an outpatient. He continues to have a tremor. He denies hallucinations this morning. He does not have abdominal pain or palpitations. Pt reports that he had a "seizure" when he was not withdrawing from alcohol. He states that after drinking a beer and smoking strong marijuana he went outside and experienced shaking of his body and leaned against his car. He also had bowel incontinence with the episode. He did not fall to the ground or lose consciousness during the episode. Exam Vital Signs Vital Sign - Last Date Time Temp Pulse Resp B/P Pulse Ox O2 Delivery O2 Flow Rate FiO2 10/01/16 13:57 74 16 119/61 97 Room Air 10/01/16 11:59 36.8 09/27/16 07:30 2.00 Intake and Output 09/30/16 09/30/16 10/01/16 Cumulative From/Thru 15:00 23:00 07:00 09/25/16 19:03 - 10/01/16 06:12 Intake Total 1402 ml 995 ml 15660 ml Output Total 2150 ml 1425 ml 72434 ml Balance -748 ml -430 ml -3316 ml Intake Oral 1200 ml 700 ml 23987 ml IV Total 202 ml 295 ml 4614 ml Output Urine Total 2150 ml 1425 ml 58814 ml Urine/Stool Mix 601 ml # Voids 8 32 # Bowel Movements 1 0 5 Exam General: Awake, alert, and oriented to person, place, and time. No acute distress, well-developed, well-nourished. HEENT: Normocephalic, atraumatic. External ears without defect. Pupils equal, round, and reactive to light and accommodation. Anicteric sclerae, moist conjunctivae, and no lid lag. O Neck: Supple with full range of motion. No jugular venous distension. No bruits. No lymphadenopathy or thyromegaly. Cardiovascular: Regular rate and rhythm with no murmurs, rubs, or gallops appreciated Pulmonary: Clear to auscultation bilaterally with no crackles, wheezes, or rhonchi. Normal respiratory effort with no use of accessory muscles. Abdomen: Bowel tones present. Soft, nontender, nondistended. No hepatosplenomegaly or masses appreciated. Extremities: No clubbing, cyanosis, edema, or lymphadenopathy appreciated. Skin: Normal temperature, turgor, and texture; no rash, ulcers, or subcutaneous nodules appreciated. Neurological: Tremor present. No asterixis. Cranial nerves grossly intact. Normal muscle strength, tone, and bulk. Psychiatric: Alert and oriented to person, place, and time. IVs and Medications Medications Reviewed: Medications were reviewed in detail Lab and Diagnostics Result Diagram: 10/01/1623410/01/165 X-Rays, CTs and MRIs PROCEDURE: US ABDOMEN IMPRESSION: Diffusely increased hepatic echotexture. This finding is most likely secondary to hepatic fatty infiltration although other hepatocellular disease may have a similar appearance. Recommend clinical correlation.. Approved by: Jefry Gastelum M.D. on 09/26/2016 at 12:44 Cardiac Echo Impressions Echocardiogram Report Interpretation Summary The left ventricle is normal in size. The ejection fraction is estimated to be 60-65%. The right ventricle is normal in size and function. No significant valvular pathology seen. Reading Physician:PM Assessment & Plan Mr. 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 1. Recurrent Alcohol withdrawal, present on admission. Active. -He had stopped drinking alcohol abruptly for 2 days prior to his reported seizure. Hospitalized in June and July in 2016. Continues to be anxious and agitated intermittently. -Precedex gtt for agitation discontinued today -Clonidine as needed -Thiamine daily -Continue CIWA protocol with Valium 2. History of seizures. - Patient has a history of seizures, although whether this is due to a seizure disorder or alcohol withdrawal seizures is uncertain. Possible underlying seizure disorder reported in outpatient PCP notes regarding seizure medications started at a treatment center in [facility] with Porfirioantin. He had a previous referral to neurology in 2016 to investigate whether he has a seizure disorder or his seizures are related to alcohol withdrawal, but further work-up has not yet been obtained. Patient was taking phenytoin at home but not regularly. Phenytoin level low and below therapeutic level -Stopped Keppra as it is unlikely that patient has a seizure disorder. His seizures are likely from alcohol withdrawal. -Records requested from [facility] 3. Cirrhosis, chronic, present on admission. Active. -Likely secondary to alcohol abuse -Madrey discriminate score equals -8 -Mildly elevated transaminases -Abdominal ultrasound shows increased hepatic echotexture -Ammonia level 88 -Hold lactulose as patient's hallucinations are related to his alcohol withdrawal rather than from hepatic encephalopathy. He is AAOx3 and able to follow commands. -Continue to monitor mental status and CMP 4. Mild thrombocytopenia, chronic, present on admission. -Likely secondary to #2 above -Platelets 159,000 today -PT, PTT within normal limits -Triglycerides 97, LDL 102 5. Heart palpitations, acute, present on admission. -Probably secondary to alcohol withdrawal -Serial troponin negative -Echocardiogram shows normal ejection fraction, normal left and right ventricular function, and no valvular pathology -BNP and TSH within normal limits 6. Right upper quadrant tenderness and transaminitis, chronic, present on admission (probable alcohol-induced hepatitis). Improving. -Probable alcohol-induced hepatitis -Abdominal ultrasound as above -AST 142, ALP 100 initially but improving -Viral hepatitis panel negative -Continue to monitor complete metabolic panel 7. Acute metabolic acidosis, present on admission. Improved. -Normal saline 1000 mL x2 and Valium in the emergency department -Monitor with CMP 8. Elevated protein, recurrent, present on admission. -SPEP/upep within normal limits, no anemia 9. Blood per rectum without anemia, present on admission. Resolved. -Pt denied blood per rectum -Continue famotidine -Fecal occult was negative -Continue to monitor CBC in the morning and monitor for dark or bloody stools 10. Acute metabolic encephalopathy. present on admission. Improving. -See #1 above Chronic issues known prior to admission, present on admission: Hypertension -Resumed home lisinopril because of improved liver enzymes and acutely elevated blood pressure today -If patient's blood pressure remains elevated with systolic blood pressure >180 and HR >60, then labetalol 20 mg IV as needed is ordered. Depression -Continue sertraline Acid reflux -Continue famotidine Chronic low back pain, degenerative changes Disposition: Called Ara Hendricks his home health care case manager at outpatient [facility] to discuss his case further. It is an outpatient rehabilitation and mental health service. She sees him at his own home everyday except for weekends. If he is discharged on a weekday, she will come to pick him up to take him home, which is preferred. Possible discharge home tomorrow pending continued medical stability. VTE Mechanical Devices: Intermittant Pneumatic CD Resuscitation Status: CPR: Attempt Resuscitation Time spent 30 min Attending Statement Patient seen and examined with house staff. Agree with all attached documentation. Armida Thompson DO Oct 01, 2016 15:42 Charly Bowles MD Oct 02, 2016 08:09
--- NOTE | 2016-10-01 18:52 | NUR ---
CIWA/Activity Patient a/o x 3, calm and cooperative with care. Patient denies pain nausea or sob. Patient sat in chair for approx 9 hrs meg well. Amb in damian with sba steady gait. Cont to have BUE tremors. VSS. Tele D/C'd per md orders. CIWA 2-6, no meds given. Will cont poc.
[2016-10-01 19:30] VITALS: BP 124/63; PULSE 96; RESP 20; O2SAT 97
--- NOTE | 2016-10-01 22:44 | NUR ---
ciwa/neuro pt a/o times three, devin, up to chair for dinner and bsc with sba, tolerated activity well, pt with tremors with arms extended-not at rest, pt with sml amount of diaphoresis/flushed face, po valium 5mg given times two during the evening portion of shift, pt a/o and calm, denies pain, denies cp, no tele per orders, denies n/v, po intake good - at 90% of dinner, denies sob, ls-clear, decreased bases, ra sats upper 90's, saline lock intact, bed alarm on, pt coop, a/o, using call light appropriately for needs, see assessment charting,
--- NOTE | 2016-10-01 23:20 | NUR ---
transfer report given to Slim Leon rn, pt transferred to 247 bed one with all belongings per w/c,
[2016-10-02] VITALS (12 sets, daily range): BP systolic 94–156; BP diastolic 49–85; PULSE 62–140; RESP 14–22; O2SAT 93–97
--- NOTE | 2016-10-02 01:25 | NUR ---
Seizure Activity Pt was sitting at bedside after going to use the bathroom at 0124. PHYSICAL THERAPY SUPERVISOR was with patient at time of seizure activity. PHYSICAL THERAPY SUPERVISOR stated "He stood up as if to walk out of the room when he suddenly yelled and raised his arms straight out if front of him and became rigid" at 0125. She then placed him on his bed for safety. [facility] staff then responded within one minute. Rapid response called. Pt was placed on his left side. Suctioned oral secretions. Pt placed on O2 oxymask. Vitals taken. Rapid team at bedside to assess patient. transferred pt to [facility]. Addendum: 10/02/16 at 0306 by LUISITO JACK RN BP during seizure activity 0130- 220/ 0135- 197/102 0140- 176/104
--- NOTE | 2016-10-02 02:15 | NUR ---
Transfer report given to Barby Joseph RN. Pt transferred to 2013 with all belongings and medications.
[2016-10-02 02:25] LABS: Magnesium 1.8 mg/dL (1.6-2.6)
--- NOTE | 2016-10-02 03:36 | NUR ---
Assumed care Assumed care of pt in 2013 s/p seizure like activity. Pt is alert and oriented to direct questions with bizarre behavior. Unsure of baseline. Does not remember having seizure and reports no residual effects, yet will drift off in middle of sentence and is forgetful. Seemingly improving with time. VSS. Bedpan/urinal for pt needs. Pt placed in bed with MONIE alarm, seizure pads, low setting, and suction at bedside. Awaiting Keppra level lab results. gave ok for PO fluids. Tolerating well. Will continue to monitor. Care ongoing
[2016-10-02 04:20] LABS: BASOPHILS % (AUTO) 0.4 % (0-3); EOSINOPHILS % (AUTO) 1.4 % (0-5); MONOCYTES % (AUTO) 23.4 % (4-12); Mean Corpuscular Hemoglobin 33.7 pg (27.0-35.0); Mean Corpuscular Volume 94.2 fL (81-100); NEUTROPHILS % (AUTO) 58.5 % (40-74); Platelet Count 232 bil/L (150-400)
[2016-10-02] MEDS ORDERED: levETIRAcetam Inj 1,000 MG in IV Premix 1 EACH IV ONE (08:25)
[2016-10-02] MEDS ORDERED: 0.9% Sodium Chloride 250 ML ONE ×2 (08:46→19:42)
[2016-10-02] MEDS: Multivit-Miner-Folic Acid-Iron Tablet PO SCH (09:00)
--- NOTE | 2016-10-02 09:30 | NUR ---
[employer] ADMINISTRATOR/Neuro vocational technical education teacher called to inform this RN that patient HR 140's, ST. This RN went to check on patient and [employer] ADMINISTRATOR called. Patient nonverbal with mild shaking, small amt of blood on left mouth, pupils sluggish. MD at bedside and new orders recieved. Patient awoke, after several minutes, but drowsy, confused, restless and unable to follow commands and attempting to remove tele and climb oob. Freq reorientation done. IV Valium given per MD orders. Will cont to monitor.
[2016-10-02] MEDS: Dexmedetomidine 400 mCg/100 mL NS Premix IV SCH ×2 (14:57→22:38)
--- NOTE | 2016-10-02 16:12 | NUR ---
CIWA/AMA/Valium/GTT Patient became increasing more confused this afternoon, wanting to get dressed and leave AMA, climbing oob and pulling off tele. Attempts made several times to reorient pateint to situation without success. CIWA 20-29,Valium given x 4 over one hour. Patient more calm but cont to want to leave. paged and charge coordinator in to assess patient. Patient restarted on Precedex gtt and resting at this time. VSS, tele SR 71-80's.
--- NOTE | 2016-10-02 19:35 | PCM.PNMED ---
Subjective Date of Service Oct 02, 2016 Subjective Overnight: CIWA score 13. Patient had a estephanie-clonic seizure that lasted 1 minute. Today, Mr. Treviño reports that he was told that he had a seizure overnight. He does not remember it happening. He continues to have tremors. He had a witnessed seizure this morning and bite his tongue with a small puncture. After the seizure, he is confused. Exam Vital Signs Vital Sign - Last Date Time Temp Pulse Resp B/P Pulse Ox O2 Delivery O2 Flow Rate FiO2 10/02/16 12:21 37.1 89 17 139/62 96 Room Air 10/02/16 09:00 2.00 Intake and Output 10/01/16 10/01/16 10/02/16 Cumulative From/Thru 15:00 23:00 07:00 09/25/16 19:03 - 10/02/16 06:25 Intake Total 2161 ml 800 ml 56568 ml Output Total 450 ml 850 ml 58421 ml Balance 1711 ml -50 ml -1655 ml Intake Oral 2037 ml 800 ml 79945 ml IV Total 124 ml 4738 ml Output Urine Total 450 ml 850 ml 80595 ml Urine/Stool Mix 601 ml # Voids 2 2 36 # Bowel Movements 2 0 7 Exam General: Awake, alert, and oriented to person, place, and time. No acute distress, well-developed, well-nourished. HEENT: Normocephalic, atraumatic. External ears without defect. Pupils equal, round, and reactive to light and accommodation. Anicteric sclerae, moist conjunctivae, and no lid lag. O Neck: Supple with full range of motion. No jugular venous distension. No bruits. No lymphadenopathy or thyromegaly. Cardiovascular: Regular rate and rhythm with no murmurs, rubs, or gallops appreciated Pulmonary: Clear to auscultation bilaterally with no crackles, wheezes, or rhonchi. Normal respiratory effort with no use of accessory muscles. Abdomen: Bowel tones present. Soft, nontender, nondistended. No hepatosplenomegaly or masses appreciated. Extremities: No clubbing, cyanosis, edema, or lymphadenopathy appreciated. Skin: Normal temperature, turgor, and texture; no rash, ulcers, or subcutaneous nodules appreciated. Neurological: Tremor present. No asterixis. Cranial nerves grossly intact. Normal muscle strength, tone, and bulk. Psychiatric: Alert and oriented to person, place, and time. IVs and Medications Medications Reviewed: Medications were reviewed in detail Lab and Diagnostics Result Diagram: 10/02/1640410/02/16404 X-Rays, CTs and MRIs PROCEDURE: US ABDOMEN IMPRESSION: Diffusely increased hepatic echotexture. This finding is most likely secondary to hepatic fatty infiltration although other hepatocellular disease may have a similar appearance. Recommend clinical correlation.. Approved by: Jefry Gastelum M.D. on 09/26/2016 at 12:44 Cardiac Echo Impressions Echocardiogram Report Interpretation Summary The left ventricle is normal in size. The ejection fraction is estimated to be 60-65%. The right ventricle is normal in size and function. No significant valvular pathology seen. Reading Physician:PM Assessment & Plan Mr. 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 1. Recurrent Alcohol withdrawal, present on admission. Active. -He had stopped drinking alcohol abruptly for 2 days prior to his reported seizure. Hospitalized in June and July in 2015. Continues to be anxious and agitated intermittently. -Precedex gtt for agitation resumed today -Clonidine as needed -Thiamine daily -Continue CIWA protocol with Valium 2. History of seizures. present on admission. Active. - Patient has a history of seizures, although whether this is due to a seizure disorder or alcohol withdrawal seizures is uncertain. Possible underlying seizure disorder reported in outpatient PCP notes regarding seizure medications started at a treatment center in [facility] with Brendan. He had a previous referral to neurology in 2016 to investigate whether he has a seizure disorder or his seizures are related to alcohol withdrawal, but further work-up has not yet been obtained. Patient was taking phenytoin at home but not regularly. Phenytoin level low and below therapeutic level on admission. -Pt had witnessed seizure this morning. He was confused afterwards but his airway was intact. He did not have any neurological deficits post-ictal. -Records requested from [facility] -Patient given 1000 mg of Keppra IV and 5 mg of Valium IV immediately after seizure episode this morning -Resumed Keppra 250 mg PO BID -Continue to monitor 3. Cirrhosis, chronic, present on admission. Active. -Likely secondary to alcohol abuse -Madrey discriminate score equals -8 -Mildly elevated transaminases -Abdominal ultrasound shows increased hepatic echotexture -Ammonia level 88 -Hold lactulose as patient's hallucinations are related to his alcohol withdrawal rather than from hepatic encephalopathy. He is AAOx3 and able to follow commands. -Continue to monitor mental status and CMP 4. Mild thrombocytopenia, chronic, present on admission. -Likely secondary to #2 above -Platelets 159,000 today -PT, PTT within normal limits -Triglycerides 97, LDL 102 5. Heart palpitations, acute, present on admission. -Probably secondary to alcohol withdrawal -Serial troponin negative -Echocardiogram shows normal ejection fraction, normal left and right ventricular function, and no valvular pathology -BNP and TSH within normal limits 6. Right upper quadrant tenderness and transaminitis, chronic, present on admission (probable alcohol-induced hepatitis). Improving. -Probable alcohol-induced hepatitis -Abdominal ultrasound as above -AST 142, ALP 100 initially but improving -Viral hepatitis panel negative -Continue to monitor complete metabolic panel 7. Acute metabolic acidosis, present on admission. Improved. -Normal saline 1000 mL x2 and Valium in the emergency department -Monitor with CMP 8. Elevated protein, recurrent, present on admission. -SPEP/upep within normal limits, no anemia 9. Blood per rectum without anemia, present on admission. Resolved. -Pt denied blood per rectum -Continue famotidine -Fecal occult was negative -Continue to monitor CBC in the morning and monitor for dark or bloody stools 10. Acute metabolic encephalopathy. present on admission. Improving. -See #1 above Chronic issues known prior to admission, present on admission: Hypertension -Resumed home lisinopril because of improved liver enzymes and acutely elevated blood pressure today -If patient's blood pressure remains elevated with systolic blood pressure >180 and HR >60, then labetalol 20 mg IV as needed is ordered. Depression -Continue sertraline Acid reflux -Continue famotidine Chronic low back pain, degenerative changes Disposition: Called Ara Hendricks his test case developer at outpatient [facility] to discuss his case further. It is an outpatient rehabilitation and mental health service. She sees him at his own home everyday except for weekends. If he is discharged on a weekday, she will come to pick him up to take him home, which is preferred. Possible discharge home in the next 1-2 days pending continued medical stability. VTE Mechanical Devices: Intermittant Pneumatic CD Resuscitation Status: CPR: Attempt Resuscitation Time spent 40 minutes Attending Statement Patient seen and examined with house staff. Agree with all attached documentation. Armida Thompson DO Oct 02, 2016 14:03 Charly Bowles MD Oct 10, 2016 07:34
[2016-10-03] VITALS (7 sets, daily range): BP systolic 95–129; BP diastolic 56–65; PULSE 62–73; RESP 11–24; O2SAT 94–96
[2016-10-03 02:58] LABS: BASOPHILS % (AUTO) 0.6 % (0-3); EOSINOPHILS % (AUTO) 2.2 % (0-5); MONOCYTES % (AUTO) 20.7 % (4-12); Mean Corpuscular Hemoglobin 33.5 pg (27.0-35.0); Mean Corpuscular Volume 94.6 fL (81-100); NEUTROPHILS % (AUTO) 46.1 % (40-74); Platelet Count 219 bil/L (150-400)
--- NOTE | 2016-10-03 06:21 | NUR ---
Precedex / Behavior Precedex turned from 0.5mcgs/kg/hr down to 0.2 mcgs/kg/hr. Patient sleeps for most of the shift. When he wakes up he is oriented to person, month, and sometimes place. He makes no attempts to exit the bed independently. He is calm and cooperative with care. [place] alarm on.
[2016-10-03] MEDS: Dexmedetomidine 400 mCg/100 mL NS Premix IV SCH ×2 (08:52→11:01)
[2016-10-03] MEDS: Multivit-Miner-Folic Acid-Iron Tablet PO SCH (08:53)
--- NOTE | 2016-10-03 13:41 | NUR ---
Mentation/CIWA/PO intake/Activity Patient alert to self, cooperative. Still tremulous, CIWA 9. Wants to go home. Eating and taking in fluids well. Up to the Bathroom with SBA. Frequent rounding due to impulsiveness. Continuing with POC.
[2016-10-03] MEDS: chlordiazePOXIDE 25 mg Capsule PO PRN (16:58)
--- NOTE | 2016-10-03 17:36 | NUR ---
spiritual care: follow up conversational visit. pt stated his eagerness for discharge. engaged in conversation about personal history, interests, coping. good spirits. pt rec visit from malt roaster and remains agreeable for eucharistic visitors. prayer
--- NOTE | 2016-10-03 20:59 | PCM.PNMED ---
Subjective Date of Service Oct 03, 2016 Subjective Mr. 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 Yesterday afternoon, his CIWA score was 20-29. This morning, Precedex has been decreased. Mr. Treviño states that he is feeling well other than mild left arm pain with movement. His tongue is sore. He denies fever, chills, or abdominal pain. Exam Vital Signs Vital Sign - Last Date Time Temp Pulse Resp B/P Pulse Ox O2 Delivery O2 Flow Rate FiO2 10/03/16 07:32 66 10/03/16 07:31 36.4 18 95/56 95 Room Air 10/02/16 09:00 2.00 Intake and Output 10/02/16 10/02/16 10/03/16 Cumulative From/Thru 15:00 23:00 07:00 09/25/16 19:03 - 10/03/16 06:14 Intake Total 1387 ml 451 ml 60036 ml Output Total 1250 ml 1175 ml 31049 ml Balance 137 ml -724 ml -2242 ml Intake Oral 1020 ml 220 ml 78874 ml IV Total 367 ml 231 ml 5336 ml Output Urine Total 1250 ml 1175 ml 30952 ml Urine/Stool Mix 601 ml # Voids 36 # Bowel Movements 1 0 8 Exam General: Awake, alert, and oriented to person and place. No acute distress, well -developed, well-nourished. HEENT: Normocephalic, atraumatic. External ears without defect. Pupils equal, round, and reactive to light and accommodation. Anicteric sclerae, moist conjunctivae, and no lid lag. O Neck: Supple with full range of motion. No jugular venous distension. No bruits. No lymphadenopathy or thyromegaly. Cardiovascular: Regular rate and rhythm with no murmurs, rubs, or gallops appreciated Pulmonary: Clear to auscultation bilaterally with no crackles, wheezes, or rhonchi. Normal respiratory effort with no use of accessory muscles. Abdomen: Bowel tones present. Soft, nontender, nondistended. No hepatosplenomegaly or masses appreciated. Extremities: No clubbing, cyanosis, edema, or lymphadenopathy appreciated. Skin: Normal temperature, turgor, and texture; no rash, ulcers, or subcutaneous nodules appreciated. Neurological: Tremor present. No asterixis. Cranial nerves grossly intact. Normal muscle strength, tone, and bulk. Psychiatric: Alert and oriented to person and place. IVs and Medications Medications Reviewed: Medications were reviewed in detail Lab and Diagnostics Result Diagram: 10/03/1623910/03/16239 X-Rays, CTs and MRIs PROCEDURE: US ABDOMEN IMPRESSION: Diffusely increased hepatic echotexture. This finding is most likely secondary to hepatic fatty infiltration although other hepatocellular disease may have a similar appearance. Recommend clinical correlation.. Approved by: Jefry Gastelum M.D. on 09/26/2016 at 12:44 Cardiac Echo Impressions Echocardiogram Report Interpretation Summary The left ventricle is normal in size. The ejection fraction is estimated to be 60-65%. The right ventricle is normal in size and function. No significant valvular pathology seen. Reading Physician:PM Assessment & Plan Mr. 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 1. Recurrent Alcohol withdrawal, present on admission. Active. -He had stopped drinking alcohol abruptly for 2 days prior to his reported seizure. Hospitalized in June and July in 2016. Continues to be anxious and agitated intermittently. -Precedex gtt for agitation resumed yesterday and discontinued today. -Clonidine as needed -Thiamine daily -Continue CIWA protocol -Discontinued Valium and started Librium -Physical therapy tomorrow to help with improved mobility 2. History of seizures. present on admission. Active. - Patient has a history of seizures, although whether this is due to a seizure disorder or alcohol withdrawal seizures is uncertain. Possible underlying seizure disorder reported in outpatient PCP notes regarding seizure medications started at a treatment center in [facility] with Dilantin. He had a previous referral to neurology in 2016 to investigate whether he has a seizure disorder or his seizures are related to alcohol withdrawal, but further work-up has not yet been obtained. Patient was taking phenytoin at home but not regularly. Phenytoin level low and below therapeutic level on admission. -Pt had witnessed seizure this morning. He was confused afterwards but his airway was intact. He did not have any neurological deficits post-ictal. -Records requested from [facility] -Patient given 1000 mg of Keppra IV and 5 mg of Valium IV immediately after seizure episode this morning -Resumed Keppra 250 mg PO BID -Continue to monitor -Keppra level pending 3. Cirrhosis, chronic, present on admission. Active. -Likely secondary to alcohol abuse -Madrey discriminate score equals -8 -Mildly elevated transaminases -Abdominal ultrasound shows increased hepatic echotexture -Hold lactulose as patient's hallucinations are related to his alcohol withdrawal rather than from hepatic encephalopathy. He is AAOx3 and able to follow commands. -Continue to monitor mental status and CMP 4. Mild thrombocytopenia, chronic, present on admission. Improved. -Likely secondary to #3 above -Platelets [id number] today -PT, PTT within normal limits -Triglycerides 97, LDL 102 5. Heart palpitations, acute, present on admission. Resolved. -Probably secondary to alcohol withdrawal -Serial troponin negative, EKG did not show any concerning ST segment changes -Echocardiogram shows normal ejection fraction, normal left and right ventricular function, and no valvular pathology -BNP and TSH within normal limits 6. Right upper quadrant tenderness and transaminitis, chronic, present on admission (probable alcohol-induced hepatitis). Improved. -Probable alcohol-induced hepatitis -Abdominal ultrasound as above -AST 142, ALP 100 initially but improving -Viral hepatitis panel negative -Continue to monitor complete metabolic panel 7. Acute metabolic acidosis, present on admission. Improved. -Normal saline 1000 mL x2 and Valium in the emergency department -Monitor with CMP 8. Elevated protein, recurrent, present on admission. -SPEP/upep within normal limits, no anemia 9. Blood per rectum without anemia, present on admission. Resolved. -Pt denied blood per rectum -Continue famotidine -Fecal occult was negative -Continue to monitor CBC in the morning and monitor for dark or bloody stools 10. Acute metabolic encephalopathy. present on admission. Improving. -See #1 above Chronic issues known prior to admission, present on admission: Hypertension -Resumed home lisinopril because of improved liver enzymes and acutely elevated blood pressure today -If patient's blood pressure remains elevated with systolic blood pressure >180 and HR >60, then labetalol 20 mg IV as needed is ordered. Depression -Continue sertraline Acid reflux -Continue famotidine Chronic low back pain, degenerative changes Disposition: Called Ara Hendricks his top case assembler at outpatient [facility] to discuss his case further. It is an outpatient rehabilitation and mental health service. She sees him at his own home everyday except for weekends. If he is discharged on a weekday, she will come to pick him up to take him home, which is preferred. Possible discharge home in the next 1-2 days pending continued medical stability and patient able to ambulate safely. Pain Evaluation: Adequate Pain Control VTE Mechanical Devices: Intermittant Pneumatic CD Resuscitation Status: CPR: Attempt Resuscitation Attending Statement The patient was seen and examined together with Dr. Thompson on 10/03/2016 and I agree with the history, exam and plan as outlined in the note above. . Armida Thompson DO Oct 03, 2016 10:39 Mango Lebron MD Oct 04, 2016 07:48
--- NOTE | 2016-10-04 03:34 | NUR ---
CIWA Pt scored 8 on CIWA scale at 2100. Pt received Librium just 3 hours prior. Pt calm and denying hearing or seeing any hallucinations. Pt given snacks and is calm and content.
[2016-10-04 04:18] VITALS: BP 128/75; PULSE 65; RESP 16; O2SAT 94
[2016-10-04 04:19] LABS: BASOPHILS % (AUTO) 0.5 % (0-3); EOSINOPHILS % (AUTO) 3.3 % (0-5); MONOCYTES % (AUTO) 21.1 % (4-12); Mean Corpuscular Hemoglobin 32.6 pg (27.0-35.0); NEUTROPHILS % (AUTO) 47.3 % (40-74); Platelet Count 282 bil/L (150-400)
[2016-10-04] MEDS: Multivit-Miner-Folic Acid-Iron Tablet PO SCH (08:11)
[2016-10-04 09:17] VITALS: BP 131/75; PULSE 63; RESP 16; O2SAT 96
[2016-10-04] MEDS ORDERED: Thiamine PO (11:47)
[2016-10-04] MEDS ORDERED: CHLO25CA10 PO ×3 (11:47→13:59)
[2016-10-04] MEDS ORDERED: PREN1TAB25 PO (11:47)
[2016-10-04] MEDS ORDERED: KEPP250T PO (11:47)
--- NOTE | 2016-10-04 13:12 | NUR ---
Evaluation completed. Please go to "Notes" then click on "Assessments and Notes" (bottom left corner of screen). Then select appropriate discipline tab on top of screen.
--- NOTE | 2016-10-04 14:00 | NUR ---
Social Work: Discharge D: Pt discussed in am rounds. Pt is medically stable for discharge home. Pt's case planner Ara Hendricks from [facility] will be providing transport. MEAT CUTTER APPRENTICE spoke with Funmi Hendricks over the phone to confirm this and notified her that the pt will be ready between 3:00pm and 4:00pm today. She will be at the hospital at 3:30 to transport the time. PT evaluation completed with pt today with recommendation for discharge home as pt ambulated SBA 200 feet with FWW. CD assessment was completed on 10/01 and resources provided to pt. No further discharge needs identified at this time. A: Pt who is I at baseline and lives at home alone. P: Anticipate pt to discharge home today via [facility] CM. No other Sw needs at this time. SALOME Dyer
--- NOTE | 2016-10-04 14:09 | PCM.DIMED ---
Armida Thompson DO 10/04/16 1353: Discharge Instructions Date of Service Oct 04, 2016 Dates of Hospitalization Sep 25, 2016 at 19:52 Diet No restrictions Activity Limited until seen by PCP Call your provider Fever or Chills, Shortness of breath, Bleeding, Chest pain, Vomitting, Excessive diarrhea, Weakness (unilateral), Other (dark, tarry stools or bright, red blood in your stools) Patient Instructions To help with your withdrawal from alcohol, you will continue a taper of chlordiazepoxide for 10 days. You will take 50 mg by mouth every 8 hours for 6 days and then you will take 50 mg by mouth every 12 hours for 4 days. Do not take these medications with alcohol, while driving, or while working. We recommend going to alcoholics anonymous meetings every day and finding a sponsor immediately to help with your sobriety. Continue outpatient services with your rn field case manager, Ara, at [facility]. You should also continue to take a multivitamin and thiamine daily. For a possible seizure disorder, you should continue to take levetiracetam 250 mg by mouth every 12 hours. Follow up with your primary care provider in 1 week. You should discuss possibly seeing a neurologist with your primary care doctor to further evaluate if you have a seizure disorder. Follow-up Provider: Silvana Sams MD Follow-up with PCP in: 1 week Mango Lebron MD 10/04/16 1755: Discharge Instructions Attending's Statement The patient was seen and examined together with Dr. Thompson on 10/04/2016 and I agree with the history, exam and plan as outlined in the note above. . Armida Thompson DO Oct 04, 2016 13:53 Mango Lebron MD Oct 04, 2016 17:55
[2016-10-04] MEDS: chlordiazePOXIDE 25 mg Capsule PO PRN (14:54)
--- NOTE | 2016-10-04 15:45 | NUR ---
Discharge Pt left with case work aide Ara at [id number]. All discharge instructions gone over and understood along with new prescriptions in hand. IV removed, all belongings taken with. Follow up apt made. All questions answered.
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
== END 2016-10-04 15:40 | disposition home or self-care (01) | DRG 775 ==
LOC: SED 16:33 → CCU 19:52 → PCC 09-30 11:48 → CCU 09-30 16:44 → PCC 10-01 12:25 → MOC 10-01 23:21 → PCC 10-02 02:16
PROVIDERS: ADMIT Urology; ATTEND Urology
DX: F10.231 Alcohol dependence with withdrawal delirium (principal); G93.41 Metabolic encephalopathy; D69.6 Thrombocytopenia, unspecified; E87.2 Acidosis; R56.9 Unspecified convulsions; K62.5 Hemorrhage of anus and rectum; K70.30 Alcoholic cirrhosis of liver without ascites; I10 Essential (primary) hypertension; F32.9 Major depressive disorder, single episode, unspecified; K21.9 Gastro-esophageal reflux disease without esophagitis; Z87.891 Personal history of nicotine dependence; R00.2 Palpitations; K70.10 Alcoholic hepatitis without ascites

== ENCOUNTER 2016-10-18 12:04 | Emergency (ER) | payer OTHER ==
[~2016-10-18] VITALS: Ht 167.6 cm; Wt 85.9 kg
[~2016-10-18 12:04] MED LIST changes: +CHLO25CA10 PO; +KEPP250T PO; -LORA-305 PO; -LORA1TAB PO; -PHEN100C11 PO; +PREN1TAB25 PO; +Thiamine PO
[2016-10-18 12:21] VITALS: BP 126/82; PULSE 65; RESP 17; O2SAT 95
--- NOTE | 2016-10-18 13:22 | ED.REPORT ---
HPI-General Illness Date of Service Oct 18, 2016 ED Provider: Niall Rhodes MD 51 year old male with a history of alcoholism, depression, and HTN presents to the ER via EMS due to persistent headache secondary to a mechanical ground level fall "a couple days ago". He states that he struck his head on his sink during the fall. He reports horizontal nystagmus following the accident, no resolved, and residual dizziness. Patient denies difficulty swallowing, numbness , tingling, or weakness. Currently he is intoxicated, and states that his last drink was at 10:30 this morning. Patient was discharged 10/05/2016 from the hospital here after a 10 day stay for alcohol withdrawal. He also reports a suicide attempt several days ago, but denies any suicidal ideation at this time. Nursing Notes Stated Complaint: INTOXICATED, HEAD PAIN Chief Complaint: Substance Abuse Nursing Notes Reviewed: Yes Allergies: Coded Allergies: caffeine (Verified Adverse Reaction, Mild, raises my heart rate too high, 09/26/16) Scheduled ([Thiamine]) 100 MG TABLET 100 MG PO DAILY Chlordiazepoxide (Chlordiazepoxide) 25 Mg Capsule 50 MG PO DIRECTED Take 50 mg by mouth every 8 hours for 6 days and then take 50 mg by mouth every 12 hours for 4 days. Gabapentin (Gabapentin) 300 Mg Capsule 300 MG PO TID Levetiracetam (Keppra) 250 Mg Tablet 250 MG PO BID Lisinopril (Lisinopril) 10 Mg Tablet 10 MG PO DAILY Vit#96/Ferrous Fum/FA ( Tablet) 1 Each Tablet 1 TABLET PO DAILY Sertraline HCl (Sertraline) 100 Mg Tablet 200 MG PO DAILY Scheduled PRN Lactulose (Lactulose) 20 Gm/30 Ml Solution 20 GM PO Q6H PRN PRN confusion General Time Seen by MD: 12:49 Chief Complaint Headache Hx Obtained From: Patient Arrived By: Ambulance Sudden in Onset?: No Onset Occurred: 2 days ago Symptom Duration: Since onset Caused by: Accidental, Fall on ground Context: Occurred at: Home injury Location: : Head Quality: Painful Severity: Current: Moderate Severity: Maximum: Moderate Associated with: Reports: Dizziness, Headache, Denies: Loss of consciousness, Nausea, Numb extremities, Shortness of breath , Vomiting, Weak extremity, Weakness Pertinent Negative: Pt denies other symptoms Recent Healthcare: Recent doctor visit, Recent hospitalization Similar Sx Previous: Yes Past Medical History Past Medical History Notes: Most recent ED visit 08/20/16 10 day hospital stay discharged 07/04 ED visit 12/18/2015 ETOH (no crisis beds), 12/13/15 ETOH and HTN ([facility]WOBS), 11/2015 ED visits x3 for ETOH among others Past Medical History Alcoholism Depression Seizures secondary to withdrawal HTN- taking Metoprolol PTSD Chronic dental infection Carpal tunnel syndrome Low back pain 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 Physical Exam Vital Signs Vital Signs Date Time Temp Pulse Resp B/P Pulse Ox O2 Delivery O2 Flow Rate FiO2 10/18/16 17:24 37.1 70 11 131/71 97 Room Air 10/18/16 15:20 36.5 71 17 122/76 98 Room Air 10/18/16 12:21 36.5 65 17 126/82 95 Room Air Initial VS: Reviewed Neck: Supple, Non-tender, Full range of motion Abdomen / GI: Soft, Non-tender, No guarding, No rebound, No distention Extremities: Vascular intact, Neuro intact, No swelling, No tenderness Skin: Warm, Dry, No cyanosis General/Constitutional: Awake, Alert, Well developed, Well nourished Behavior: Positive: Appears intoxicated Appearance / Presentation: Positive: Intoxicated Head / Eyes: Normocephalic Trauma - General: Positive: Abrasion (Over right eye) Respiratory / Chest: Breath sounds NL, No respiratory distress, No rales, No rhonchi, No wheezing Cardiovascular: Heart rate NL, Regular rhythm, Heart sounds NL, Cap refill not delayed, Peripheral circulation NL Neurologic: Oriented X3, No motor deficits, No sensory deficits, CN II - XII intact Speech: Positive: Slow, Slurred Psychiatric: Not suicidal, Not homicidal Interpretation & Diagnostics Lab Results Interpretation Result Diagram: 10/18/16 1453 10/18/16 1453 Test 10/18/16 13:30 10/18/16 14:53 Hold Urine Received (Received) White Blood Count 5.2th/mm3 (3.8-10.1) Red Blood Count 4.23mil/mm3 (4.40-5.80) Hemoglobin 13.7g/dL (13.8-17.2) Hematocrit 39.5% (41.0-50.0) Mean Corpuscular Volume 93.4fL (81-100) Mean Corpuscular Hemoglobin 32.4pg (27.0-35.0) Mean Corpuscular Hemoglobin Concent 34.7% (32.0-37.0) Red Cell Distribution Width 13.1% (12.3-15.4) Platelet Count 197bil/L (150-400) Neutrophils (%) (Auto) 55.4% (40-74) Lymphocytes (%) (Auto) 33.8% (14-46) Monocytes (%) (Auto) 7.7% (4-12) Eosinophils (%) (Auto) 2.5% (0-5) Basophils (%) (Auto) 0.2% (0-3) Prothrombin Time 9.9sec (8.1-12.5) Prothromb Time International Ratio 0.93ratio Sodium Level 138mEq/L (134-144) Potassium Level 4.2mEq/L (3.5-5.2) Chloride Level 99mEq/L (97-108) Carbon Dioxide Level 24mmol/L (18-29) Blood Urea Nitrogen 9mg/dL (6-24) Creatinine 0.55mg/dL (0.76-1.27) Estimat Glomerular Filtration Rate 166mL/min (>59) Glucose Level 104mg/dL (60-99) Calcium Level 8.7mg/dL (8.5-10.1) Total Bilirubin 0.2mg/dL (0.0-1.2) Aspartate Amino Transf (AST/SGOT) 44U/L (0-50) Alanine Aminotransferase (ALT/SGPT) 47U/L (0-44) Alkaline Phosphatase 95U/L (25-150) Total Protein 7.0g/dL (6.4-8.4) Albumin 4.4g/dL (3.4-5.0) CT Head Interpretation IMPRESSION: No acute intracranial abnormality. Dictated by: Timothy Mahmood M.D. on 10/18/2016 at 14:51 Approved by: Timothy Mahmood M.D. on 10/18/2016 at 14:51 Study: Head CT no contrast Interpretation / Wet Read by: Interpret - Radiologist Re-Eval/Medical Decision Med Decision/Clinical Course 51-year-old male history of alcohol abuse presenting status post ground level fall several days ago and now with headache. No known LOC. CT brain is normal. Patient was evaluated by outpatient chemical dependency program and given resources. Patient stable for discharge home. No signs/sxs withdrawal. Source of Hx: Old records Time of Eval: 16:01 Re-Evaluation/Progress Note: Patient would like to be discharged. Counseled Regarding: Diagnosis, Lab results, Need for follow-up, When/why to return to ED Discharge & Departure Primary Impression: Head trauma Additional Impression: Alcohol abuse Disposition: Home Discharge Condition All VS Reviewed: Yes Condition: Stable Patient Instructions: Concussion (DC) Additional Instructions: Your workup today was reassuring. I do not believe that there is any dangerous cause for your symptoms at this time. Stop drinking. Follow-up with the outpatient resources given to you by our social services analyst. Return to the ER if you develop worsening headache, nausea, vomiting, confusion , numbness/weakness/tingling, chest pain, shortness of breath, or any other concerning symptoms. Referrals: [facility] (PCP) Alcoholics Anonymous (AA) Scribe Attestation Portions of this note were transcribed by Lenin Vieira. I, Dr. Rhodes, personally performed the history, physical exam and medical decision-making; I reviewed and confirmed the accuracy of the information in the transcribed note. Signed by: Jerry Araujo, 10/18/2016 - 16:06 copies to: [facility] Niall Rhodes MD Oct 18, 2016 13:22 LENIN VIEIRA Oct 18, 2016 13:29
--- NOTE | 2016-10-18 14:53 | DRSVH ---
PROCEDURE: CT BRAIN WITHOUT CONTRAST ([id number]) INDICATIONS: trauma TECHNIQUE: Noncontrast 4.5 mm thick angled axial sections acquired from the foramen magnum to the vertex, with c oronal reformats. COMPARISON: [facility], CT, CT BRAIN WO CON, 01/13/2016, 2:30. [facility], C T, BRAIN W/O CONTRAST, 06/27/2014, 20:48. [facility], CT, BRAIN W/O CONTRAST, 04/28/2012, 20:21. FINDINGS: Image quality: Excellent. CSF spaces: Basal cisterns are patent. No extra-axial fluid collections. Ventricles are normal in size and shape. Brain: No midline shift. No intracranial masses or hemorrhage. Montero-white matter interface is norm al. Skull and face: Calvarium and visualized facial bones are intact, without suspicious lesions. Sinuses: Visualized sinuses and mastoids are clear. IMPRESSION: No acute intracranial abnormality. Dictated by: Timothy Mahmood M.D. on 10/18/2016 at 14:51 Approved by: Timothy Mahmood M.D. on 10/18/2016 at 14:51
[2016-10-18 15:00] LABS: BASOPHILS % (AUTO) 0.2 % (0-3); EOSINOPHILS % (AUTO) 2.5 % (0-5); MONOCYTES % (AUTO) 7.7 % (4-12); Mean Corpuscular Hemoglobin 32.4 pg (27.0-35.0); Mean Corpuscular Volume 93.4 fL (81-100); NEUTROPHILS % (AUTO) 55.4 % (40-74); Platelet Count 197 bil/L (150-400)
[2016-10-18 15:16] LABS: INR 0.93 ratio
[2016-10-18 15:20] VITALS: BP 122/76; PULSE 71; RESP 17; O2SAT 98
[2016-10-18 17:24] VITALS: BP 131/71; PULSE 70; RESP 11; O2SAT 97
== END 2016-10-18 17:47 | disposition home or self-care (01) ==
LOC: SED 12:04 → EDBD 12:04 → SED 17:47
DX: S09.90XA Unspecified injury of head, initial encounter (principal); W18.30XA Fall on same level, unspecified, initial encounter; W22.8XXA Striking against or struck by other objects, initial encounter; Y92.003 Bedroom of unspecified non-institutional (private) residence as the place of occurrence of the external cause; Y93.89 Activity, other specified; Y99.8 Other external cause status; F10.220 Alcohol dependence with intoxication, uncomplicated; H55.00 Unspecified nystagmus; I10 Essential (primary) hypertension; F32.9 Major depressive disorder, single episode, unspecified; Z87.891 Personal history of nicotine dependence; Z59.0 Homelessness; Z91.5 Personal history of self-harm; Z88.8 Allergy status to other drugs, medicaments and biological substances

== ENCOUNTER 2016-11-05 09:34 | Inpatient (IN) | payer OTHER ==
[~2016-11-05] VITALS: Ht 167.6 cm; Wt 81.4 kg
[2016-11-05] VITALS (11 sets, daily range): BP systolic 119–149; BP diastolic 64–85; PULSE 63–87; RESP 12–22; O2SAT 94–99
[~2016-11-05 09:34] MED LIST changes: -METO50TA3 PO
--- NOTE | 2016-11-05 09:45 | ED.REPORT ---
HPI-Overdose/Alcohol Toxicity Date of Service Nov 05, 2016 ED Provider: The patient is a 51 year old male with history of alcoholism, depression, seizures and DT's secondary to alcohol withdrawal, hypertension, and PTSD, who presents to the emergency department complaining of alcohol withdrawal. The patient recently stopped drinking. His last drink was last night at 2200. He has experienced nausea, dry heaving, diaphoresis, shaking, anxiety, and dizziness. He was hospitalized last month for alcohol withdrawal and made it about 1 week after being discharged without drinking. Nursing Notes Stated Complaint: ALCOHOL WITHDRAWALS Chief Complaint: Substance Abuse Nursing Notes Reviewed: Yes Allergies: Coded Allergies: caffeine (Verified Adverse Reaction, Mild, raises my heart rate too high, 09/26/16) Scheduled ([Thiamine]) 100 MG TABLET 100 MG PO DAILY Chlordiazepoxide (Chlordiazepoxide) 25 Mg Capsule 50 MG PO DIRECTED Take 50 mg by mouth every 8 hours for 6 days and then take 50 mg by mouth every 12 hours for 4 days. Gabapentin (Gabapentin) 300 Mg Capsule 300 MG PO TID Levetiracetam (Keppra) 250 Mg Tablet 250 MG PO BID Lisinopril (Lisinopril) 10 Mg Tablet 10 MG PO DAILY Vit#96/Ferrous Fum/FA ( Tablet) 1 Each Tablet 1 TABLET PO DAILY Sertraline HCl (Sertraline) 100 Mg Tablet 200 MG PO DAILY Scheduled PRN Lactulose (Lactulose) 20 Gm/30 Ml Solution 20 GM PO Q6H PRN PRN confusion General Time Seen by Provider: 09:46 Chief Complaint Other (alcohol withdrawal) Hx Obtained From: Patient Arrived By: Walk-in Onset Occurred: Yesterday Symptom Duration: Since onset Progression Since Onset: Constant, Gradually worsening Severity: Current: Moderate Severity: Maximum: Severe Recent Healthcare: Recent doctor visit, Recent hospitalization Similar Sx Previous: Yes Past Medical History Past Medical History Alcoholism Depression Seizures secondary to withdrawal HTN- taking Metoprolol PTSD Chronic dental infection Carpal tunnel syndrome Low back pain 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 Physical Exam Initial Vital Signs Vital Signs (First) Date Time Temp Pulse Resp B/P Pulse Ox O2 Delivery O2 Flow Rate FiO2 11/05/16 09:37 36.4 74 18 144/76 96 11/05/16 10:45 Nasal Cannula 2 Initial VS: Reviewed Head / Eyes: Atraumatic, Normocephalic, PERRL ENT: Mucous membranes moist, Conjunctiva normal, No scleral icterus Neck: Supple, Non-tender, Full range of motion Lymphatic: No lymphadenopathy Extremities: Vascular intact, Neuro intact, No swelling, No tenderness General/Constitutional: Awake, Alert Respiratory / Chest: Atraumatic, Breath sounds NL, Breath sounds = bilat, No respiratory distress, No rales, No rhonchi, No wheezing Cardiovascular: Heart rate NL, Regular rhythm, Heart sounds NL, Cap refill not delayed, Peripheral circulation NL Abdomen: Atraumatic, Soft, Non-tender, No guarding, No rebound Neurologic: Oriented X3, Speech NL Tremulous Psychiatric: Affect NL, Mood NL, Not suicidal, Not homicidal Skin: Color NL Color / Condition: Positive: Diaphoresis present Interpretation & Diagnostics Lab Results Interpretation Result Diagram: 11/05/16 1118 11/05/16 1118 Test 11/05/16 11:18 White Blood Count 4.5th/mm3 (3.8-10.1) Red Blood Count 4.51mil/mm3 (4.40-5.80) Hemoglobin 14.6g/dL (13.8-17.2) Hematocrit 41.3% (41.0-50.0) Mean Corpuscular Volume 91.6fL (81-100) Mean Corpuscular Hemoglobin 32.4pg (27.0-35.0) Mean Corpuscular Hemoglobin Concent 35.4% (32.0-37.0) Red Cell Distribution Width 13.0% (12.3-15.4) Platelet Count 110bil/L (150-400) Neutrophils (%) (Auto) 77.1% (40-74) Lymphocytes (%) (Auto) 14.3% (14-46) Monocytes (%) (Auto) 7.3% (4-12) Eosinophils (%) (Auto) 0.9% (0-5) Basophils (%) (Auto) 0.2% (0-3) Sodium Level 132mEq/L (134-144) Potassium Level 3.9mEq/L (3.5-5.2) Chloride Level 94mEq/L (97-108) Carbon Dioxide Level 19mmol/L (18-29) Blood Urea Nitrogen 6mg/dL (6-24) Creatinine 0.48mg/dL (0.76-1.27) Estimat Glomerular Filtration Rate 194mL/min (>59) Glucose Level 108mg/dL (60-99) Calcium Level 9.1mg/dL (8.5-10.1) Total Bilirubin 0.8mg/dL (0.0-1.2) Aspartate Amino Transf (AST/SGOT) 58U/L (0-50) Alanine Aminotransferase (ALT/SGPT) 41U/L (0-44) Alkaline Phosphatase 96U/L (25-150) Total Protein 7.8g/dL (6.4-8.4) Albumin 4.4g/dL (3.4-5.0) Thyroid Stimulating Hormone (TSH) 1.140uIU/mL (0.450-4.500) Re-Eval/Medical Decision Med Decision/Clinical Course Impending delirium tremens, patient with severe alcohol withdrawal, concerning clinical history, after reviewing prior records he has had multiple admissions with extended hospitalizations for alcohol withdrawal also with associated seizure activity. On arrival, Patient is exhibiting findings of severe alcohol withdrawal, patient has received three 5 mg doses of IV Valium. Patient will be admitted for close monitoring and parenteral benzodiazepines. Source of Hx: Old records Re-Evaluation/Progress #1: Time of Eval: 09:50 Re-Evaluation/Progress Note: Initial CIWA: 16. Re-Evaluation/Progress #2: Time of Eval: 10:42 Re-Evaluation/Progress Note: Rechecked the patient. He is feeling better after getting the valium. Re-Evaluation/Progress #3: Time of Eval: 11:20 Re-Evaluation/Progress Note: CIWA improved to 5. Re-Evaluation/Progress #4: Time of Eval: 11:48 Re-Evaluation/Progress Note: Rechecked the patient. He is not feeling well. CIWA increased to 11. Will administer more meds and admit. Consultation #1: Consulted With: hired worker Call Returned at: 11:30 Note: ED outreach and education social worker spoke with [facility]. They are concerned about the patient's acuity. Consultation #2: Referral / Consult Name: Rc Mora MD Consulted With: Hospitalist Call Returned at: 12:33 Mica Plate Layer Hand: Will see patient, Agrees with eval, Agrees with plan, Accepts admit Counseled Regarding: Diagnosis, Lab results, Need for admission Discharge & Departure Impression: Primary Impression: Alcohol withdrawal Complication of substance-induced condition: with unspecified complication Qualified Code: F10.239 - Alcohol dependence with withdrawal, unspecified )( Condition at Discharge: No danger to self, No danger to others, No suicidal ideation, No homicidal ideation Disposition: ADMITTED TO HOSPITAL Discharge Condition All VS Reviewed: Yes Condition: Stable Referrals: [facility] (PCP) Scribe Attestation Portions of this note were transcribed by Zaida Myers. I, Dr. Pepper personally performed the history, physical exam and medical decision-making; I reviewed and confirmed the accuracy of the information in the transcribed note. Signed by: Jerry Lees, 11/05/2016 at 1245. copies to: [facility] Frankie Pepper DO Nov 05, 2016 09:45 Zaida Myers Nov 05, 2016 09:52
[2016-11-05] MEDS ORDERED: Ondansetron 2 mg/mL 2 mL Inj IVPUSH PRN ×2 (09:55→12:40)
[2016-11-05] MEDS ORDERED: Thiamine Inj 100 MG, Folic Acid Inj 1 MG, Magnesium Sulfate 50% Inj 2 GM, Multivitamins... IV ONE ×10 (09:55→13:40)
[2016-11-05 11:25] LABS: BASOPHILS % (AUTO) 0.2 % (0-3); EOSINOPHILS % (AUTO) 0.9 % (0-5); MONOCYTES % (AUTO) 7.3 % (4-12); Mean Corpuscular Hemoglobin 32.4 pg (27.0-35.0); Mean Corpuscular Volume 91.6 fL (81-100); NEUTROPHILS % (AUTO) 77.1 % (40-74); Platelet Count 110 bil/L (150-400)
[2016-11-05] MEDS ORDERED: 0.9% Sodium Chloride 1,000 ML IV SCH (12:37)
[2016-11-05] MEDS ORDERED: Alum-Mag Hydrox-Simeth 30 mL Suspension PO PRN (12:40)
[2016-11-05] MEDS ORDERED: Polyethylene Glycol (PEG) 17 Gm Powder PO PRN (13:40)
[2016-11-05] MEDS ORDERED: PHENobarbital 65 mg/mL Inj IV ONE (13:45)
[2016-11-05] MEDS ORDERED: THIA100T64 PO (14:43)
[2016-11-05] MEDS ORDERED: LEVE250T4 PO (14:43)
[2016-11-05] MEDS ORDERED: PROP10TA8 PO (14:43)
[2016-11-05] MEDS ORDERED: PHEN100C11 PO (14:43)
[2016-11-05] MEDS ORDERED: METO50TA3 PO (14:43)
[2016-11-05] MEDS ORDERED: LISI10TA PO (14:43)
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
[2016-11-05 16:18] LABS: INR 1.05 ratio
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
[2016-11-05] MEDS: Phenytoin 100 mg ER Capsule PO SCH (20:24)
[2016-11-06] VITALS (8 sets, daily range): BP systolic 134–147; BP diastolic 79–91; PULSE 60–71; RESP 16–20; O2SAT 94–99
--- NOTE | 2016-11-06 06:38 | NUR ---
CIWA/CP Pt CIWA's between 9-15 all shift. Pt has been cooperative with care and compliant with using call light to get out of bed. Pt is A&Ox3 and is still very shaky on feet. VSS and Tele SR 70's. PT did state some CP at beginning of shift EKG showed no changes from previous EKG.
[2016-11-06] MEDS: Multivit-Miner-Folic Acid-Iron Tablet PO SCH (09:55)
[2016-11-06] MEDS: Phenytoin 100 mg ER Capsule PO SCH ×2 (09:55→21:21)
[2016-11-06] MEDS: Thiamine Inj 100 MG in 0.9% Sodium Chloride 100 ML IV SCH (10:06)
--- NOTE | 2016-11-06 15:10 | NUR ---
CIWA Cardiac:Pt denies CP today, reports some bilateral low rib pain, Dr Moulton aware. Tele: SR 60-70s Resp: Pt denies SOB, SpO2 98% on 1L NC this AM. Pt weaned off O2, SPO2 mid 90s on RA. GI/: Denies N/V, pt is having some loose stools/diarrhea pt states that he gets frequent loose stools or diarrhea when he eats. Neuro: A&Ox3, NOLASCO, tremors have improved, CIWA 12 this AM, 10mg Diazepam IV given, CIWA down to 9, subsequent checks down to 8.
--- NOTE | 2016-11-06 15:54 | NUR ---
Social Work: Screening Data: Pt is a 51 y/o male admitted for ETOH withdrawal. Pt's PCP is Tommy and insurance is [employer]. EMR reviewed, readmit score is 7. CIWA 11/06 AM was 13. Pt has a returned case inspector from [facility] who is working on a plan with pt for d/c. MARINE SCIENTIST will meet with pt for CD assessment when appropriate. MARINE SCIENTIST will continue to follow. Assessment: Pt who is independent at baseline, homeless, alcohol abuse. Plan: Pt will likely return to homelessness at d/c. MARINE SCIENTIST will meet with pt for CD assessment when appropriate. MARINE SCIENTIST will continue to follow. SALOME Sarmiento
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
[2016-11-07 03:07] VITALS: BP 134/75; PULSE 61; RESP 20; O2SAT 98
[2016-11-07 04:28] LABS: Mean Corpuscular Volume 92.6 fL (81-100)
--- NOTE | 2016-11-07 06:20 | NUR ---
CIWA/Sweats/Tele Mild confusion, CIWA score /, gave 10 Mg diazepam IV x4, pt had= Addendum: 11/07/16 at 0623 by DON DELCID RN few complaints other than sweatiness and tremors, somewhat non-compliant with I&O , changed Gown 3 x due to perspiration. Saline locked/Room air/Tele SR 60-70
[2016-11-07 09:00] VITALS: BP 123/70; PULSE 67; RESP 16; O2SAT 95
[2016-11-07] MEDS: Multivit-Miner-Folic Acid-Iron Tablet PO SCH (09:06)
[2016-11-07] MEDS: Phenytoin 100 mg ER Capsule PO SCH ×2 (09:06→21:06)
[2016-11-07] MEDS: Thiamine Inj 100 MG in 0.9% Sodium Chloride 100 ML IV SCH (10:02)
--- NOTE | 2016-11-07 10:06 | NUR ---
JUSTYN ALEJANDRA 7, pt stated his teeth was hurting. Administered Tylenol. Pt appropriate, cooperative with care, finished breakfast and watching TV at this time. Care continues.
[2016-11-07 10:31] VITALS: PULSE 65
[2016-11-07 11:48] VITALS: BP 126/78; PULSE 67; RESP 18; O2SAT 94
--- NOTE | 2016-11-07 18:14 | NUR ---
spiritual care: follow up caring pantograph machine operator attempted to visit. pt sleeping and did not rouse to voice
[2016-11-07 19:49] VITALS: BP 137/74; PULSE 76; RESP 24; O2SAT 97
--- NOTE | 2016-11-07 20:27 | PCM.PNMED ---
Subjective Date of Service Nov 07, 2016 Subjective Patient states he is doing okay today, continues to complain of chronic pain in his left ankle, no new pain, not worsening. He also has had some watery diarrhea. There is some reports overnight states that she has been diaphoretic , requiring him to change his gown 3 times, CIWA scores range between 13 and 18 , receiving 4 doses of 10 mg diazepam. This morning his CIWA score was 7. Exam Vital Signs Vital Sign - Last Date Time Temp Pulse Resp B/P Pulse Ox O2 Delivery O2 Flow Rate FiO2 11/07/16 19:49 36.5 76 24 137/74 97 Room Air 11/06/16 07:38 1.00 Intake and Output 11/06/16 11/06/16 11/07/16 Cumulative From/Thru 15:00 23:00 07:00 11/05/16 09:37 - 11/07/16 05:09 Intake Total 740 ml 200 ml 5190 ml Output Total 700 ml 2550 ml Balance 40 ml 200 ml 2640 ml Intake Oral 640 ml 200 ml 2040 ml IV Total 100 ml 3150 ml Output Urine Total 300 ml 1150 ml Urine/Stool Mix 400 ml 1400 ml # Voids 1 2 # Bowel Movements 1 0 3 Exam General: Laying in bed, no apparent distress. Sleeping, awakens appropriately to verbal stimuli. Moderately disheveled HEENT: Normocephalic, atraumatic, EOMI grossly, Cardiovascular: Regular rate and rhythm, no clicks murmurs rubs, peripheral pulses 2/4 equal bilaterally Pulmonary: Clear to auscultation bilaterally, no W/R/R. Abdominal: Soft to palpation, bowel sounds present 4, no hepatosplenomegaly. Negative rebound. Extremities: No edema appreciated. No tenderness, asymmetry. Neuro: Neurologically grossly intact, strength is equal bilaterally upper and lower extremities. MSK: Able to move extremities on their own volition, strength 5 out of 5 equal bilaterally to upper and lower extremities. Psychiatric: Patient's mood and affect are flat, appropriately answers questions. Globally somnolent. IVs and Medications Medications Reviewed: Medications were reviewed in detail Lab and Diagnostics Result Diagram: 11/07/1631411/07/16314 Assessment & Plan Patient is a 51 year old male with a history of alcohol dependence, seizure disorder, depression and hypertension. He presented to [facility] on 11/05/16 seeking assistance to go through alcohol withdrawal. Patient is well known at [facility]. CIWA started in the ED and patient admitted for additional management. Hospital day 3 1. Chronic alcohol dependence seeking acute alcohol withdrawal, present on admission. - CIWA protocol continued - Valium to be given per CIWA protocol. - Banana bag completed - IV thiamine x 3 days then PO thiamine following. - Multivitamin daily. - One time dose of phenobarbital 130 mg. - Case management/COMMUNITY ACTION WORKER following. 2. Seizure disorder, chronic, stable. - Likely related to alcohol use. - Continue home meds: Keppra 250 mg BID and phenytoin 200 mg BID. - Seizures precautions in place. 3. Hypertension, chronic, presume stable. - Blood pressure is been mildly elevated in the 130s. - Continue metoprolol tartrate 50 mg BID. - Adding lisinopril 10 mg at bedtime 4. Chest pain, acute, present on admission. Resolved - Reassuring EKG. - Troponin negative - Continue to monitor closely. If patient has worsening, consider nitro SL, additional EKG and follow up troponin. 5. Depression with anxiety, chronic, presume stable. - Continue sertraline 200 mg daily. 6. History of alcohol related liver disease, presume stable. - PT/INR and liver function is within normal limits - Continue to monitor CMP. - Hepatitis panel negative in 2016. - No obvious hepatic encephalopathy on initial interview/exam. - Antiemetic available PRN. - Antacid available PRN. - Bowel regimen available PRN. - Tylenol available PRN mild pain, fever. PCP Silvana Sams MD Pain Evaluation: Adequate Pain Control GI Prophylaxis: Not indicated VTE Prophylaxis: Sub-Q Enoxaparin, SCDs Resuscitation Status: CPR: Attempt Resuscitation Time spent 30 minutes Attending Statement The patient was seen and examined together with on 11/07/16 and I have added additional information to the note above. Rolf Moulton DO Nov 07, 2016 20:27 Martha Oconnor DO Nov 08, 2016 14:31
[2016-11-07 23:15] VITALS: BP 156/87; PULSE 64; RESP 22; O2SAT 97
--- NOTE | 2016-11-08 02:53 | NUR ---
CIWA/Tele/Pain CIWA score : 7 / 9 / no interventions. C/O pain 6-03/21 , gave ordered tylenol Q 6 hr, pt was then able to sleep . Pt appears to be less uncomfortable in his de-toxing, has not required medications this shift. has tremors though these seem to be his base. Has not been diaphoretic as he has in the past, Pt voiced concerns of his discharge and homeless status if he can not find treatment inpatient . Has Case-manager office services @ [facility] , he hopes [facility] find placement at [facility] upon DC from [facility]. A&O x3 using call light appropriately, independent in room to toilet , Saline locked , room air. Telemetry: SR [id number]
[2016-11-08 02:59] VITALS: BP 145/83; PULSE 56; RESP 22; O2SAT 96
[2016-11-08 03:16] LABS: Mean Corpuscular Hemoglobin 31.7 pg (27.0-35.0); Mean Corpuscular Volume 92.2 fL (81-100)
[2016-11-08 04:55] VITALS: PULSE 83
[2016-11-08 08:00] VITALS: PULSE 62
[2016-11-08 08:45] VITALS: BP 135/76; PULSE 60; RESP 16; O2SAT 97
[2016-11-08] MEDS: Multivit-Miner-Folic Acid-Iron Tablet PO SCH (08:50)
[2016-11-08] MEDS: Phenytoin 100 mg ER Capsule PO SCH (08:51)
[2016-11-08] MEDS: Thiamine Inj 100 MG in 0.9% Sodium Chloride 100 ML IV SCH (08:57)
--- NOTE | 2016-11-08 11:35 | NUR ---
Social Work: Discharge D: Pt discussed in am rounds. Pt is medically stable for discharge. Pt's CIWA is 5. MD requesting INNER TUBE INSERTER follow up with [facility] to inquire about admission for further detox. INNER TUBE INSERTER met with pt at bedside to discuss discharge planning. Pt is working with his CM from [place], Ara Hendricks ([phone]) to get into [facility]). Pt has already called [facility] and learned that they have no beds available today. INNER TUBE INSERTER confirmed this with [facility] ([phone]). Pt provided verbal consent for INNER TUBE INSERTER to contact his CM at [place] [facility]. t/c to [place] [facility]. Pt's CM will not be in until SaturdayNovember 12. INNER TUBE INSERTER made pt an appointment with Ara at 0900 on SaturdayNovember 09. t/c to [facility] ([phone]); INNER TUBE INSERTER spoke with [place] in admissions who states that they have received the pt's cover sheet and initial information but have not yet received his final assessment and [facility] authorization. Pt does not have a bed date at this time. INNER TUBE INSERTER informed pt that he does not have a bed date at [facility] and will need to follow up with his CM tomorrow (11/09) at 0900. INNER TUBE INSERTER provided pt with community resources, along with 04/03 crisis phone number. Pt states that he has been to the [facility] in the past but was kicked out due to substance use. A: Pt who is currently homeless and working with his CM to get into [facility] P: Pt to discharge back to homelessness and follow up with his [place] CM, Ara Hendricks, tomorrow at 0900. SALOME Dyer Addendum: 11/08/16 at 1655 by DUKE BAZAN INNER TUBE INSERTER met with pt at bedside to inform him that he has discharge orders. INNER TUBE INSERTER reviewed discharge plan to meet with Ara Hendricks tomorrow at [facility]. Pt provided with community resources. Pt denies any suicidal or homicidal ideation and expresses hope that he will be able to get to [facility] tomorrow. Pt will be going to [facility] to inquire if they have any immediate resources for housing. Pt states that he is also attempting to contact a friend who he may be able to stay with [facility].
[2016-11-08 11:46] VITALS: BP 129/75; PULSE 65; RESP 20; O2SAT 94
[2016-11-08] MEDS ORDERED: LISI10TA PO (15:39)
--- NOTE | 2016-11-08 15:46 | PCM.DIMED ---
Rolf Moulton DO 11/08/16 1546: Discharge Instructions Date of Service Nov 08, 2016 Dates of Hospitalization Nov 05, 2016 at 1:55 pm Discharge Diagnosis Discharge Diagnosis 1. Chronic alcohol dependence seeking acute alcohol withdrawal, 2. Seizure disorder, chronic 3. Hypertension, chronic 4. Chest pain, acute 5. Depression with anxiety, chronic 6. History of alcohol related liver disease Medication Instructions Continue taking metoprolol 50 mg twice a day Begin taking lisinopril 10 mg every evening before bed - this medication needs to be taken every day, this is a blood pressure medication and only works appropriately and is taking consistently and correctly. Not as needed. Stop taking propranolol.- This medication is in the same class as metoprolol, both are blood pressure medications and it can be dangerous taking 2 medications at the same type together. Diet No restrictions Activity No restrictions Call your provider Fever or Chills, Shortness of breath, Bleeding, Chest pain, Vomitting, Excessive diarrhea, Weakness (unilateral) Patient Instructions Follow up with hospital for behavioral medicine services tomorrow at 9 AM Please follow-up with primary care provider within 1 week of discharge regarding your hospital stay as well as your chronic medical conditions. You did very well with your withdrawal. I encourage you to remain sober, avoid alcohol and all other substances of abuse. Follow-up Provider: [facility] Follow-up with PCP in: 1 week Martha Oconnor DO 11/10/16 1429: Discharge Instructions Attending's Statement The patient was seen and examined together with Dr. Moulton on 11/08/2016 and I have added additional information to the note above. Rolf Moulton DO Nov 08, 2016 15:46 Martha Oconnor DO Nov 10, 2016 14:29
--- NOTE | 2016-11-08 16:27 | NUR ---
Discharge Pt discharged at approximately 1645. Pt given educational material for Alcohol Withdrawal. Discharge packet includes prescription for Lisinopril, next dose to be taken for all medications with dates and times, IV DC'd catheter intact, Tele DC'd eyewear manufacturing tech notified. Pt left with Home Medications and all personal belongings. Escorted by MARBLE SUPERVISOR to door in wheelchair.
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
--- NOTE | 2016-11-08 18:30 | NUR ---
spiritual care: (late entry) conversational visit with pt as discharge plan being made. he expressed his understanding of appt made for tomorrow but also expressed anxiety about being discharged today and explored various options including asking for extra night in hospital. discussion included ways pt can be proactive and care for himself given his circumstances.
== END 2016-11-08 16:35 | disposition home or self-care (01) | DRG 897 ==
LOC: SED 09:34 → PCC 13:55
PROVIDERS: ADMIT Urology; ATTEND Urology
DX: F10.239 Alcohol dependence with withdrawal, unspecified (principal); K70.9 Alcoholic liver disease, unspecified; I10 Essential (primary) hypertension; G40.509 Epileptic seizures related to external causes, not intractable, without status epilepticus; R07.89 Other chest pain; F34.1 Dysthymic disorder

== ENCOUNTER 2017-01-01 17:07 | Emergency (ER) | payer OTHER ==
[~2017-01-01] VITALS: Ht 167.6 cm; Wt 176.0 kg
[~2017-01-01 17:07] MED LIST changes: -CHLO25CA10 PO; -GABA-502 PO; -KEPP250T PO; +LEVE250T4 PO; +METO50TA3 PO; +PHEN100C11 PO; -PREN1TAB25 PO; +THIA100T64 PO; -Thiamine PO
[2017-01-01 17:20] VITALS: BP 141/85; PULSE 97; RESP 16; O2SAT 97
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
[2017-01-01] MEDS ORDERED: Phenytoin 100 mg ER Capsule PO ONE (18:35)
== END 2017-01-01 19:53 ==
LOC: SED 17:07
DX: F10.129 Alcohol abuse with intoxication, unspecified (principal); I10 Essential (primary) hypertension; F32.9 Major depressive disorder, single episode, unspecified; Z59.0 Homelessness; Z88.5 Allergy status to narcotic agent; Z88.8 Allergy status to other drugs, medicaments and biological substances; Z91.018 Allergy to other foods

== ENCOUNTER 2017-01-11 10:00 | Inpatient (IN) | payer OTHER ==
[~2017-01-11] VITALS: Ht 167.6 cm; Wt 77.1 kg
[2017-01-11] VITALS (7 sets, daily range): BP systolic 136–183; BP diastolic 79–108; PULSE 81–112; RESP 18–22; O2SAT 92–96
--- NOTE | 2017-01-11 11:05 | ED.REPORT ---
HPI-Overdose/Alcohol Toxicity Date of Service Jan 11, 2017 ED Provider: History of Present Illness: 51yo male with long hx. of alcohol abuse and alcohol withdrawl seizures here requesting detox. He is markedly intoxicated in exam room. he denies any SI or hallucinations. Denies any known trauma. Nursing Notes Stated Complaint: DETOX Chief Complaint: Substance Abuse Nursing Notes Reviewed: Yes Allergies: Coded Allergies: acetaminophen (Verified Allergy, Unknown, 01/01/17) hydrocodone (Verified Allergy, Unknown, 01/01/17) caffeine (Verified Adverse Reaction, Mild, raises my heart rate too high, 01/01/17) Scheduled Gabapentin (Gabapentin) 400 Mg Capsule 400 MG PO TID Levetiracetam (Levetiracetam) 250 Mg Tablet 250 MG PO BID Lisinopril (Lisinopril) 10 Mg Tablet 10 MG PO HS Metoprolol Tartrate (Metoprolol Tartrate) 50 Mg Tablet 50 MG PO BID Phenytoin Sodium Extended (Phenytoin Sodium Extended) 100 Mg Capsule 200 MG PO BID Sertraline HCl (Sertraline) 100 Mg Tablet 200 MG PO DAILY Thiamine Mononitrate (Vitamin B-1) 100 Mg Tablet 100 MG PO DAILY Scheduled PRN Lorazepam (Lorazepam) 1 Mg Tablet 1 MG PO HS PRN PRN Insomnia General Time Seen by Provider: 11:05 Chief Complaint Intoxicated, alcohol Hx Obtained From: Patient Arrived By: Walk-in Immunizations: Unknown Similar Sx Previous: Yes Risk-Overdose/Alcohol Tox )( Suicide Risk Stratification : Alcohol use RF Statements: Risk factors reviewed Past Medical History Past Medical History Alcoholism Depression Seizures secondary to withdrawal HTN- taking Metoprolol PTSD Chronic dental infection Carpal tunnel syndrome Low back pain 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 Alcohol Use: >5 per day Drug Use: THC Other Social History: Frequent ED visitor, Homeless Occupation Homeless, 01/01/2017 Ambulatory Status Independent Review of Systems Unable to Obtain ROS Intoxicated Physical Exam Physical Exam Notes: Intoxicated Initial Vital Signs Vital Signs (First) Date Time Temp Pulse Resp B/P Pulse Ox O2 Delivery O2 Flow Rate FiO2 01/11/17 10:03 36.4 108 20 183/108 96 Room Air General/Constitutional: Awake, No acute distress Appearance / Presentation: Positive: Intoxicated Respiratory / Chest: Breath sounds NL, Breath sounds = bilat, No respiratory distress Cardiovascular: Heart rate NL, Regular rhythm, Heart sounds NL Abdomen: Soft Interpretation & Diagnostics Lab Results Interpretation Result Diagram: 01/11/17 1203 01/11/17 1203 Test 01/11/17 12:03 White Blood Count 2.7th/mm3 (3.8-10.1) Red Blood Count 5.00mil/mm3 (4.40-5.80) Hemoglobin 15.5g/dL (13.8-17.2) Hematocrit 42.1% (41.0-50.0) Mean Corpuscular Volume 84.2fL (81-100) Mean Corpuscular Hemoglobin 31.0pg (27.0-35.0) Mean Corpuscular Hemoglobin Concent 36.8% (32.0-37.0) Red Cell Distribution Width 12.4% (12.3-15.4) Platelet Count 163bil/L (150-400) Sodium Level 136mEq/L (134-144) Potassium Level 3.8mEq/L (3.5-5.2) Chloride Level 94mEq/L (97-108) Carbon Dioxide Level 22mmol/L (18-29) Blood Urea Nitrogen 4mg/dL (6-24) Creatinine 0.52mg/dL (0.76-1.27) Estimat Glomerular Filtration Rate 177mL/min (>59) Glucose Level 125mg/dL (60-99) Calcium Level 9.1mg/dL (8.5-10.1) Total Bilirubin 0.4mg/dL (0.0-1.2) Aspartate Amino Transf (AST/SGOT) 68U/L (0-50) Alanine Aminotransferase (ALT/SGPT) 66U/L (0-44) Alkaline Phosphatase 96U/L (25-150) Total Protein 8.3g/dL (6.4-8.4) Albumin 4.5g/dL (3.4-5.0) Lipase 79U/L (13-60) Phenytoin (Dilantin) Level < 0.8uG/mL (10.0-20.0) Alcohols 353mg/dL (0-10) Re-Eval/Medical Decision Med Decision/Clinical Course Pt. has had some stormy detox issues in past and requires medical supervision for detox at present. Dr. Lebron, hospitalist, accepts to his service. His dilantin level was subtherapeutic in ED, given 1gr. IV bolus Source of Hx: Old records Counseled Regarding: Diagnosis, Need for admission Discharge & Departure Impression: Primary Impression: Alcohol intoxication Complication of substance-induced condition: with unspecified complication Qualified Code: F10.129 - Alcohol abuse with intoxication, unspecified Additional Impressions: Homelessness Alcohol withdrawal seizure Complication of substance-induced condition: with unspecified complication Qualified Code: F10.239 - Alcohol dependence with withdrawal, unspecified Disposition: ADMITTED TO HOSPITAL Referrals: Silvana Sams MD (PCP) EDSupervising Provider for APC: Sarah Cool MD, Christopher R PAC Jan 11, 2017 11:05
[2017-01-11] MEDS ORDERED: Thiamine Inj 100 MG, Folic Acid Inj 1 MG, Magnesium Sulfate 50% Inj 2 GM, Multivitamins... IV ONE ×5 (11:15)
[2017-01-11 12:10] LABS: Mean Corpuscular Volume 84.2 fL (81-100)
[2017-01-11] MEDS ORDERED: Fosphenytoin Inj 1,000 mgPE in 0.9% Sodium Chloride 50 ML IV ONE (13:40)
[2017-01-11] MEDS ORDERED: Ondansetron 2 mg/mL 2 mL Inj IVPUSH ONE (15:10)
[2017-01-11] MEDS ORDERED: Ondansetron 2 mg/mL 2 mL Inj IVPUSH PRN ×2 (15:30→15:45)
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
[2017-01-11] MEDS ORDERED: Alum-Mag Hydrox-Simeth 30 mL Suspension PO PRN (15:45)
[2017-01-11] MEDS ORDERED: Polyethylene Glycol (PEG) 17 Gm Powder PO PRN (15:45)
[2017-01-11] MEDS ORDERED: Thiamine Inj 300 MG in Dextrose 5% 50 ML IV ONE (16:05)
[2017-01-11] MEDS ORDERED: GABA-504 PO (16:26)
[2017-01-11] MEDS ORDERED: LISI10TA PO (16:26)
[2017-01-11] MEDS ORDERED: LORA1TAB PO (16:26)
[2017-01-11] MEDS ORDERED: PHENobarbital 65 mg/mL Inj IV ONE (16:45)
[2017-01-11] MEDS: 0.9% Sodium Chloride 1,000 ML IV SCH (16:45)
--- NOTE | 2017-01-11 17:11 | NUR ---
Social Work: Screen D: Per EMR review, pt is a 51 year old male admitted for alcohol intoxications and medical detox. Pt insurance is [employer]. PCP is Silvana Sams MD. NOK is Ara Hendricks, pt's counselor/CM at [facility], . Advanced directives not on file. Readmit score is not entered at this time. Case Management referral received to coordinate discharge planning and assist pt with getting access to treatment. CONCERT PROMOTER attempted to meet with pt at bedside to discuss discharge planning. Pt is actively withdrawing, with a CIWA score of 10. Per bedside RN, pt is actively hallucinating and seeing things. Pt is not appropriate for assessment at this time. t/c from [employer], Carmelo Fleming ([phone]). The patient has a bed at [facility]; if the pt is ready to discharge over the weekend, CONCERT PROMOTER can contact CM to coordinate discharge to [facility]. A: Pt who is currently homeless with a history of ETOH use. P: Anticipate pt to enter [facility] once medically stable; CONCERT PROMOTER to continue to follow and see pt for CD assessment when appropriate. SALOME Dyer
[2017-01-11] MEDS: Multivit-Miner-Folic Acid-Iron Tablet PO SCH (18:21)
[2017-01-11] MEDS: Heparin 5,000 Unit/mL Inj SUBQ SCH (18:24)
--- NOTE | 2017-01-11 19:23 | NUR ---
Admission middle age male received from ER to room 2008 at about 1620. pt alert, confused and paranoid, speech mumbly and slurred. Making statements and reporting fear of the outside. pt reassured of safety. Pt with piv sl. telemetry applied. vss. IVF started. seizure pads in place. CIWA initially 31. MD in to eval patient, Valium given per MD instruction. follow up CIWA 12. pt noted to be emotionally labile. POC reviewed and explained to patient. call light in reach. situation endorsed to Noc RN. will continue to monitor.
[2017-01-11] MEDS: Phenytoin 100 mg ER Capsule PO SCH (19:52)
--- NOTE | 2017-01-11 22:48 | NUR ---
CIWA Pt alert and oriented to self, pt's CIWA scores between 9 to 12. Valium 10mg given with good results. Pt cooperative with care and uses call light appropriately, [place] alarm on, no other issues noted @ this time.
[2017-01-12] VITALS (9 sets, daily range): BP systolic 138–159; BP diastolic 77–91; PULSE 72–114; RESP 16–20; O2SAT 94–98
[2017-01-12] MEDS: Heparin 5,000 Unit/mL Inj SUBQ SCH ×3 (00:30→15:45)
[2017-01-12] MEDS: 0.9% Sodium Chloride 1,000 ML IV SCH ×3 (01:59→21:26)
[2017-01-12] MEDS: Multivit-Miner-Folic Acid-Iron Tablet PO SCH (07:45)
[2017-01-12] MEDS: Phenytoin 100 mg ER Capsule PO SCH (07:45)
[2017-01-12] MEDS: Thiamine Inj 200 MG in Dextrose 5% 50 ML IV SCH (08:06)
[2017-01-12 08:43] LABS: BASOPHILS % (AUTO) 0.3 % (0-3); EOSINOPHILS % (AUTO) 0.6 % (0-5); MONOCYTES % (AUTO) 13.7 % (4-12); Mean Corpuscular Hemoglobin 31.4 pg (27.0-35.0); Mean Corpuscular Volume 87.2 fL (81-100); NEUTROPHILS % (AUTO) 60.6 % (40-74); Platelet Count 112 bil/L (150-400)
[2017-01-12 09:03] LABS: INR 0.96 ratio
[2017-01-12 09:49] LABS: TROPONIN T < 0.010 ug/L (0.0-0.011)
--- NOTE | 2017-01-12 13:36 | PCM.PNMED ---
Subjective Date of Service Jan 12, 2017 Subjective Patient is a 51 year old male with a history of alcohol dependence, seizure disorder, depression and hypertension. This morning, he reports that he has a tremor, diaphoresis, bilateral flank pain , and epigastric pain. He does not have chest pain. He is oriented to person, place, and time. Exam Vital Signs Vital Sign - Last Date Time Temp Pulse Resp B/P Pulse Ox O2 Delivery O2 Flow Rate FiO2 01/12/17 11:55 37.0 72 18 154/84 95 Room Air Intake and Output 01/11/17 01/11/17 01/12/17 Cumulative From/Thru 15:00 23:00 07:00 01/11/17 10:03 - 01/12/17 06:44 Intake Total 1000 ml 300 ml 1340 ml 2640 ml Output Total 825 ml 825 ml Balance 1000 ml 300 ml 515 ml 1815 ml Intake Oral 300 ml 240 ml 540 ml IV Total 1000 ml 1100 ml 2100 ml Output Urine Total 825 ml 825 ml Exam General: No acute distress, well-developed, well-nourished, appropriately interactive HEENT: Normocephalic, atraumatic. Anicteric sclerae, moist conjunctivae. Neck: Supple with full range of motion. Cardiovascular: Regular rate and rhythm with no murmurs, rubs, or gallops appreciated Pulmonary: Clear to auscultation bilaterally with no crackles, wheezes, or rhonchi. Normal respiratory effort with no use of accessory muscles. Abdomen: Bowel tones present. Soft, nontender, nondistended. Extremities: No clubbing, cyanosis, or edema appreciated. Skin: Normal temperature, turgor, and texture. Neurological: Cranial nerves grossly intact. Grossly normal muscle strength, tone, and bulk. Psychiatric: Alert and oriented to person, place, and time. IVs and Medications Medications Reviewed: Medications were reviewed in detail Lab and Diagnostics Result Diagram: 01/12/1730 01/12/17 0830 Assessment & Plan Patient is a 51 year old male with a history of alcohol dependence, seizure disorder, depression and hypertension. He presented to [facility] on 11/05/16 seeking assistance to go through alcohol withdrawal. Patient is well known at [facility]. CIWA started in the ED and patient admitted for additional management. Chronic alcohol dependence and acute alcohol intoxication, present on admission. - CIWA protocol initiated. Patient had BAL > 350 on admission - Valium to be given per CIAK protocol. - Banana given in ED; IV thiamine 300mg IV today and 200mg daily thereafter. - Multivitamin daily. - One time dose of phenobarbital 130 mg. - Case management referral for resources for rehab. Patient will likely go back to [place] where he has a bed for inpatient rehab. Seizure disorder, chronic, presume stable. - Not taking home keppra/phenytoin - Continue home meds: Keppra 250 mg BID - Discontinued phenytoin - Seizures precautions in place. Hypertension, chronic, presume stable. - Continue metoprolol tartrate 50 mg BID. - Lisinopril allegedly 10 mg TID PRN but given scheduled once daily - Restart home medications Chest pain, acute with nausea, likely GERD, present on admission. - Reassuring EKG. Troponin negative times 3 - Lipase elevated at 79 - Continue to monitor closely. If patient has worsening, consider nitro SL, additional EKG and follow up troponin, or consider treating for pancreatitis if symptoms worsen. - Maalox x 1 dose Depression with anxiety, chronic, presume stable. - Continue sertraline 200 mg daily. History of alcohol related liver disease with current elevation of transaminases , presume stable. - PT/INR within normal limits. AST/ALT elevated but not in classic ratio. - No classic stigmata on presentation - Continue to monitor CMP. - Hepatitis panel negative in 2016. Consider repeating - Inebriated on admission - Antiemetic available PRN. - Antacid available PRN. - Bowel regimen available PRN. - Tylenol available PRN mild pain, fever. Pain Evaluation: Adequate Pain Control VTE Prophylaxis: Sub-Q Heparin (Unfractionated) Resuscitation Status: CPR: Attempt Resuscitation Attending Statement The patient was seen and examined together with Dr. Thompson on 01/12/2017 and I agree with the history, exam and plan as outlined in the note above. . Armida Thompson DO Jan 12, 2017 13:36 Mango Lebron MD Jan 12, 2017 17:00
--- NOTE | 2017-01-12 17:29 | NUR ---
CIWA The pt's CIWA score remained between 8-15 throughout the shift, with good results from 10mg valium and 8mg zofran. The pt is alert to self and situation, but not always to time. He is acting appropriately, and is following commands.
[2017-01-12] MEDS: Alum-Mag Hydrox-Simeth 30 mL Suspension PO PRN (20:50)
[2017-01-13] VITALS (8 sets, daily range): BP systolic 142–158; BP diastolic 70–85; PULSE 64–94; RESP 16–20; O2SAT 95–97
[2017-01-13] MEDS: 0.9% Sodium Chloride 1,000 ML IV SCH ×3 (00:03→22:03)
[2017-01-13] MEDS: Heparin 5,000 Unit/mL Inj SUBQ SCH ×3 (00:07→15:37)
[2017-01-13 02:45] LABS: BASOPHILS % (AUTO) 0.2 % (0-3); EOSINOPHILS % (AUTO) 1.6 % (0-5); MONOCYTES % (AUTO) 8.5 % (4-12); Mean Corpuscular Hemoglobin 31.2 pg (27.0-35.0); Mean Corpuscular Volume 86.2 fL (81-100); NEUTROPHILS % (AUTO) 57.6 % (40-74); Platelet Count 104 bil/L (150-400)
--- NOTE | 2017-01-13 05:29 | NUR ---
CIWA/Diarrhea Pt oriented x3. He c/o chest discomfort, nausea and sharp abd discomfort. Maalox given and effectiveness on the chest discomfort. He reports abd cramping due to diarrhea. Pt had several watery, loose stool tonight. CIWA 11-12. Several Valium given with effectiveness. CIWA 7-8 this am. Pt appropriate with staff and cooperative with care. [place] alarm on. Telemetry SR 80s. Pt had several watery, yellow, brown stool tonight. made aware of pts platelet trend and diarrhea.
[2017-01-13] MEDS: Multivit-Miner-Folic Acid-Iron Tablet PO SCH (08:02)
[2017-01-13] MEDS: Thiamine Inj 200 MG in Dextrose 5% 50 ML IV SCH (08:02)
[2017-01-13 08:40] LABS: APPEARANCE,URINE CLEAR (CLEAR,HAZY); COLOR,URINE STRAW (YELLOW); OCCULT BLOOD,URINE NEGATIVE (NEGATIVE); UROBILINOGEN,URINE NORMAL (NORMAL)
--- NOTE | 2017-01-13 13:00 | PCM.PNMED ---
Subjective Date of Service Jan 13, 2017 Subjective Overnight patient continues to go through withdrawal. CIWA was score is 11-12. Is now having yellow/brown diarrhea. Patient is having some mild chest discomfort along with nausea controlled with medication. Patient's given phenobarbital on admission and Valium is being titrated to effectiveness. Other review of systems are negative Exam Vital Signs Vital Sign - Last Date Time Temp Pulse Resp B/P Pulse Ox O2 Delivery O2 Flow Rate FiO2 01/13/17 10:14 72 01/13/17 08:47 Supplement Oxygen 01/13/17 07:59 36.8 16 144/82 96 Intake and Output 01/12/17 01/12/17 01/13/17 Cumulative From/Thru 15:00 23:00 07:00 01/11/17 10:03 - 01/13/17 06:36 Intake Total 536 ml 2861 ml 6037 ml Output Total 800 ml 1000 ml 2625 ml Balance -264 ml 1861 ml 3412 ml Intake Oral 536 ml 537 ml 1613 ml IV Total 2324 ml 4424 ml Output Urine Total 600 ml 1000 ml 2425 ml Stool Total 200 ml 200 ml # Bowel Movements 2 4 6 Exam General: No acute distress; slow to interact HEENT: Anicteric sclerae Cardiovascular: Regular rate and rhythm Pulmonary: Clear to auscultation bilaterally with no crackles; Normal respiratory effort Abdomen: Bowel tones present. Soft, nontender, nondistended. Extremities: No clubbing, cyanosis, or edema appreciated. Psychiatric: Cognition is slow but he is able stay on task which is an improvement from admission IVs and Medications Medications Reviewed: Medications were reviewed in detail Lab and Diagnostics Result Diagram: 01/13/1721501/13/17215 Assessment & Plan Patient is a 51 year old male with a history of alcohol dependence, seizure disorder, depression and hypertension. He presented to [facility] on 11/05/16 seeking assistance to go through alcohol withdrawal. Patient is well known at [facility]. CIWA started in the ED and patient admitted for additional management. Chronic alcohol dependence and acute alcohol intoxication, present on admission. - CIWA protocol initiated. Patient had BAL > 350 on admission - Valium to be given per CIWA protocol. - Banana given in ED; IV thiamine 300mg IV today and 200mg daily thereafter. - Multivitamin daily. - One time dose of phenobarbital 130 mg. - Case management referral for resources for rehab. Patient will likely go back to [place] where he has a bed for inpatient rehab. Seizure disorder, chronic, presume stable. - Not taking home keppra/phenytoin - Continue home meds: Keppra 250 mg BID - Discontinued phenytoin - Seizures precautions in place. Hypertension, chronic, presume stable. - Continue metoprolol tartrate 50 mg BID. - Lisinopril allegedly 10 mg TID PRN but given scheduled once daily - Restart home medications Chest pain, acute with nausea, likely GERD, present on admission. - Reassuring EKG. Troponin negative times 3 - Lipase elevated at 79 - Continue to monitor closely. If patient has worsening, consider nitro SL, additional EKG and follow up troponin, or consider treating for pancreatitis if symptoms worsen. - Maalox x 1 dose Depression with anxiety, chronic, presume stable. - Continue sertraline 200 mg daily. History of alcohol related liver disease with current elevation of transaminases , presume stable. - PT/INR within normal limits. AST/ALT elevated but not in classic ratio. - No classic stigmata on presentation - Continue to monitor CMP. - Hepatitis panel negative in 2016. Consider repeating - Inebriated on admission - Antiemetic available PRN. - Antacid available PRN. - Bowel regimen available PRN. - Tylenol available PRN mild pain, fever Disposition: Patient continues to work through alcohol withdrawal. Likely 1-2 days Pain Evaluation: Adequate Pain Control VTE Prophylaxis: Sub-Q Heparin (Unfractionated) Resuscitation Status: CPR: Attempt Resuscitation Attending Statement The patient was seen and examined together with Dr. Salgado on 01/13/2017 and I agree with the history, exam and plan as outlined in the note above. . Michael Salgado DO Jan 13, 2017 13:00 Mango Lebron MD Jan 14, 2017 09:08
--- NOTE | 2017-01-13 17:13 | NUR ---
CIWA The pt remained under 10 for most of the day, with his last CIWA of 14 - 10mg valium had good effect. The pt is A&Ox3, and is a SBA to the [facility]. Bed alarm and seizure precautions are still in place for safety.
[2017-01-13] MEDS: Alum-Mag Hydrox-Simeth 30 mL Suspension PO PRN (20:41)
[2017-01-14] MEDS: Heparin 5,000 Unit/mL Inj SUBQ SCH ×3 (00:34→18:28)
--- NOTE | 2017-01-14 00:42 | NUR ---
anxiety patient with increased anxiety.worried about going to rehab. ciwa 9 and 15. medicated with valium 10mg iv as documented. patient improved ciwa score. able to rest. ambulates to bathroom with steady gait. compliant with call [place].
[2017-01-14 03:05] LABS: BASOPHILS % (AUTO) 0.2 % (0-3); MONOCYTES % (AUTO) 7.5 % (4-12); Mean Corpuscular Hemoglobin 31.3 pg (27.0-35.0); Mean Corpuscular Volume 86.7 fL (81-100); NEUTROPHILS % (AUTO) 61.5 % (40-74); Platelet Count 99 bil/L (150-400)
[2017-01-14 03:18] LABS: INR 0.96 ratio
[2017-01-14 03:32] VITALS: BP 151/92; PULSE 70; RESP 20; O2SAT 97
[2017-01-14] MEDS ORDERED: Thiamine Inj 200 MG in Dextrose 5% 50 ML IV ONE (08:30)
[2017-01-14] MEDS: Multivit-Miner-Folic Acid-Iron Tablet PO SCH (09:20)
[2017-01-14 09:26] VITALS: BP 147/84; PULSE 76; RESP 18; O2SAT 97
[2017-01-14 09:31] VITALS: PULSE 70
[2017-01-14 11:39] VITALS: BP 154/80; PULSE 75; RESP 18; O2SAT 96
--- NOTE | 2017-01-14 14:29 | NUR ---
Social Work Note: Continued Discharge Planning Data& Assessment: Per MD pt is getting closer to being medically ready for discharge. MAHIN spoke with pt SUSAN Rhodes ([phone]) who explained that a bed is available for pt when he is medically ready and to notify him the morning of pt discharge. SW informed Carmelo that pt may be medically ready tomorrow, Saturday01/15/2017 per . SW met with pt at bedside to check in and assess for any unmet needs. Pt confirmed discharge plan and is glad he wont be discharging back into the community homeless. Pt reflected on how it is difficult to stay sober on the streets. Pt denies any other needs at this time. Pt is ambulating independently in his room. No other discharge needs identified at this time. SW to continue to follow if any needs arise. Plan: Anticipated discharge to [facility] in rehab with SUSAN Rhodes when medically ready. SW to notify pt CM on pt day of discharge. Pt denies any other needs at this time. No other discharge needs identified at this time. SW to continue to follow if any needs arise. SALOME Petit
[2017-01-14 16:32] VITALS: BP 152/83; PULSE 72; RESP 20; O2SAT 97
--- NOTE | 2017-01-14 17:19 | PCM.PNMED ---
Subjective Date of Service Jan 14, 2017 Subjective Patient is a 51 year old male with a history of alcohol dependence, seizure disorder, depression and hypertension. Overnight, his CIWA score ranged from 9 to 15. This morning, he reports mild bilateral flank pain but no dysuria. He does have nausea sometimes. He has an appetite. He currently does not have a place to live and wants to stop drinking. He wants to go back to inpatient rehab. Exam Vital Signs Vital Sign - Last Date Time Temp Pulse Resp B/P Pulse Ox O2 Delivery O2 Flow Rate FiO2 01/14/17 11:39 36.6 75 18 154/80 96 Room Air Intake and Output 01/13/17 01/13/17 01/14/17 Cumulative From/Thru 15:00 23:00 07:00 01/11/17 10:03 - 01/14/17 06:39 Intake Total 1695 ml 2780 ml 00790 ml Output Total 2825 ml 2200 ml 7650 ml Balance -1130 ml 580 ml 2862 ml Intake Oral 620 ml 1200 ml 3433 ml IV Total 1075 ml 1580 ml 7079 ml Output Urine Total 1825 ml 2200 ml 6450 ml Stool Total 200 ml Urine/Stool Mix 1000 ml 1000 ml # Voids 5 5 # Bowel Movements 2 8 Exam General: No acute distress, no diaphoresis, well-developed, well-nourished, appropriately interactive HEENT: Anicteric sclerae, moist conjunctivae. Neck: Supple with full range of motion. Cardiovascular: Regular rate and rhythm with no murmurs, rubs, or gallops appreciated Pulmonary: Clear to auscultation bilaterally with no crackles, wheezes, or rhonchi. Abdomen: Bowel tones present. Soft, nontender, nondistended. Extremities: No edema appreciated. Skin: Normal temperature, turgor, and texture. Neurological: No tremor. Cranial nerves grossly intact. Grossly normal muscle strength, tone, and bulk. Psychiatric: Alert and oriented to person, place, and time. IVs and Medications Medications Reviewed: Medications were reviewed in detail Lab and Diagnostics Result Diagram: 01/14/1721901/14/17219 Assessment & Plan Patient is a 51 year old male with a history of alcohol dependence, seizure disorder, depression and hypertension. He presented to [facility] on 11/05/16 seeking assistance to go through alcohol withdrawal. Patient is well known at [facility]. CIWA started in the ED and patient admitted for additional management. Chronic alcohol dependence and acute alcohol intoxication, present on admission. - CIWA protocol initiated. Patient had BAL > 350 on admission - Valium to be given per CIWA protocol. - Banana given in ED; IV thiamine 300mg IV today and 200mg daily thereafter. - Multivitamin daily. - One time dose of phenobarbital 130 mg. - Case management referral for resources for rehab. Patient will likely go back to [facility] tomorrow where he has a bed for continued inpatient rehab. Seizure disorder, chronic, presume stable. - Not taking home keppra/phenytoin - Continue home meds: Keppra 250 mg BID - Discontinued phenytoin - Seizures precautions in place. Hypertension, chronic, presume stable. - Continue metoprolol tartrate 50 mg BID. - Lisinopril allegedly 10 mg TID PRN but given scheduled once daily - Restarted above home medications Chest pain, acute with nausea, likely GERD, present on admission. - Reassuring EKG. Troponin negative times 3 - Lipase elevated at 79 - Continue to monitor closely. If patient has worsening, consider nitro SL, additional EKG and follow up troponin, or consider treating for pancreatitis if symptoms worsen. - Maalox x 1 dose and available as needed Depression with anxiety, chronic, presume stable. - Continue sertraline 200 mg daily. History of alcohol related liver disease with current elevation of transaminases , improved. - PT/INR within normal limits. AST/ALT elevated but not in classic ratio. - No classic stigmata on presentation - Continue to monitor CMP. - Hepatitis panel negative in 2016. Consider repeating - Inebriated on admission - Antiemetic available PRN. - Antacid available PRN. - Bowel regimen available PRN. - Tylenol available PRN mild pain, fever Disposition: Likely discharge tomorrow to [facility] Prophylaxis: Sub-Q Heparin (Unfractionated) Resuscitation Status: CPR: Attempt Resuscitation Attending Statement The patient was seen and examined together with Dr. Thompson on 01/14/17 and I agree with the history, exam and plan as outlined in the note above. Armida Thompson DO Jan 14, 2017 15:36 Martha Oconnor DO Jan 15, 2017 18:39
--- NOTE | 2017-01-14 18:42 | NUR ---
Ciwa Pt CIWA score 15 at 1530, medicated with 10mg Diazepam. Pt Ciwa reassessment score 1 after 30min. Still feeling weak at the end of the day however able to transfer to [facility]. Ongoing care.
[2017-01-14 20:39] VITALS: BP 153/83; PULSE 87; RESP 18; O2SAT 98
[2017-01-15 00:06] VITALS: PULSE 86
[2017-01-15 00:37] VITALS: BP 139/82; PULSE 62; RESP 18; O2SAT 96
[2017-01-15] MEDS: Heparin 5,000 Unit/mL Inj SUBQ SCH ×2 (00:40→08:59)
[2017-01-15 03:00] LABS: BASOPHILS % (AUTO) 0.3 % (0-3); EOSINOPHILS % (AUTO) 2.7 % (0-5); MONOCYTES % (AUTO) 6.5 % (4-12); Mean Corpuscular Hemoglobin 31.8 pg (27.0-35.0); Mean Corpuscular Volume 89.2 fL (81-100); NEUTROPHILS % (AUTO) 61.8 % (40-74); Platelet Count 116 bil/L (150-400)
[2017-01-15 03:24] LABS: INR 0.95 ratio
[2017-01-15 04:23] VITALS: BP 125/74; PULSE 65; RESP 20; O2SAT 94
--- NOTE | 2017-01-15 05:08 | NUR ---
CIWA/Anxiety Pt alert and oriented x3. CIWA 5-8. He c/o headache and reports some effectiveness from Ibuprofen. Pt gets mildly anxious tonight. Valium x1 dose given with effectiveness noted. CIWA score this am 1.
[2017-01-15 08:55] VITALS: BP 115/67; PULSE 69; RESP 16; O2SAT 99
[2017-01-15] MEDS: Multivit-Miner-Folic Acid-Iron Tablet PO SCH (08:58)
[2017-01-15 09:23] VITALS: PULSE 77
--- NOTE | 2017-01-15 09:45 | PCM.DIMED ---
Armida Thompson DO 01/15/17 0652: Discharge Instructions Date of Service Jan 15, 2017 Dates of Hospitalization Jan 11, 2017 at 15:06 Discharge Diagnosis Discharge Diagnosis You were withdrawing from alcohol during this hospital stay. Diet Discharge Diet: Heart Healthy Activity Discharge Activity: Limited until seen by PCP Call your provider Call your provider for: Fever or Chills, Shortness of breath, Bleeding, Chest pain, Vomitting, Excessive diarrhea, Weakness (unilateral) Patient Instructions Patient Instructions You have a bed at [facility] waiting for you for continued rehabilitation. Keep up the good work with sobriety. Take 5-10 minute breaks by yourself when you feel anxious or upset to take deep breaths and meditate. Stop phenytoin. Continue Keppra twice per day for seizures. Take lisinopril 10 mg once daily at bedtime and continue metoprolol tartrate 50 mg twice daily for your blood pressure. Follow up with your primary care provider in 7-10 days to review your hospital stay. Follow-up Provider: Silvana Sams MD Follow-up with PCP in: 1 week Martha Oconnor DO 01/15/17 1836: Discharge Instructions Attending's Statement The patient was seen and examined together with Dr. Thompson on 01/15/17 and I agree with the history, exam and plan as outlined in the note above. Armida Thompson DO Jan 15, 2017 06:52 Martha Oconnor DO Jan 15, 2017 18:36
[2017-01-15] MEDS ORDERED: LISI10TA PO (09:47)
--- NOTE | 2017-01-15 11:48 | NUR ---
Discharge Pt left with transport and staff from the new rehabilitation place he is going to. IV and tele removed. All discharge instructions gone over and understood. Pt asked about belongings. Transport staff informed him that his belongings were taken to the facility last Saturday from the ER. All questions answered. Pt left A&Ox3 and vitals stable.
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
--- NOTE | 2017-01-15 14:38 | NUR ---
spiritual care: routine (late entry) brief visit earlier in day. pt shared brief report of his medically managed experiences.
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
== END 2017-01-15 11:43 | disposition other institution (70) | DRG 897 ==
LOC: SED 10:00 → PCC 15:06
PROVIDERS: ADMIT Internal Medicine; ATTEND Internal Medicine
DX: F10.229 Alcohol dependence with intoxication, unspecified (principal); F10.239 Alcohol dependence with withdrawal, unspecified; K70.30 Alcoholic cirrhosis of liver without ascites; I10 Essential (primary) hypertension; G40.509 Epileptic seizures related to external causes, not intractable, without status epilepticus; Y90.8 Blood alcohol level of 240 mg/100 ml or more; K21.9 Gastro-esophageal reflux disease without esophagitis; F43.10 Post-traumatic stress disorder, unspecified; F12.90 Cannabis use, unspecified, uncomplicated; F32.9 Major depressive disorder, single episode, unspecified; Z59.0 Homelessness

== ENCOUNTER 2017-02-05 20:37 | Emergency (ER) | payer OTHER ==
[~2017-02-05 20:37] MED LIST changes: +GABA-504 PO; -LACT10SO60 PO; -PHEN100C11 PO
[2017-02-05 20:42] VITALS: BP 106/67; PULSE 75; RESP 21; O2SAT 98
== END 2017-02-05 23:06 | disposition left against medical advice (07) ==
LOC: SED 20:37
DX: Z53.21 Procedure and treatment not carried out due to patient leaving prior to being seen by health care provider (principal)

== ENCOUNTER 2017-02-20 16:26 | Emergency (ER) | payer OTHER ==
[~2017-02-20] VITALS: Ht 167.6 cm; Wt 84.1 kg
[2017-02-20 16:32] VITALS: BP 156/82; PULSE 78; RESP 20; O2SAT 97
== END 2017-02-20 17:56 | disposition left against medical advice (07) ==
LOC: SED 16:26
DX: F10.129 Alcohol abuse with intoxication, unspecified (principal); Z53.21 Procedure and treatment not carried out due to patient leaving prior to being seen by health care provider

== ENCOUNTER 2017-02-21 16:16 | Inpatient (IN) | payer OTHER ==
[~2017-02-21] VITALS: Ht 167.6 cm; Wt 78.0 kg
[2017-02-21 16:19] VITALS: BP 184/118; PULSE 132; RESP 24; O2SAT 97
[2017-02-21 17:31] LABS: BASOPHILS % (AUTO) 0 % (0-3); EOSINOPHILS % (AUTO) 0.3 % (0-5); Mean Corpuscular Volume 86.3 fL (81-100)
[2017-02-21 17:34] LABS: INR 0.94 ratio
[2017-02-21 17:35] LABS: MONOCYTES % (AUTO) 8.4 % (4-12); Mean Corpuscular Hemoglobin 30.8 pg (27.0-35.0); NEUTROPHILS % (AUTO) 70.3 % (40-74); Platelet Count 86 bil/L (150-400)
[2017-02-21 17:40] LABS: Magnesium 1.8 mg/dL (1.6-2.6)
--- NOTE | 2017-02-21 17:54 | ED.REPORT ---
HPI-Overdose/Alcohol Toxicity Date of Service Feb 21, 2017 ED Provider: Gasper Louis MD 52-year-old male with past medical history of alcohol dependence, alcohol abuse , seizures with alcohol withdrawal presents the emergency department today for detox. He states his last drink was early this morning. He currently states he feels nauseous, is disoriented, shaky, he also feels that his equilibrium is compromised. He is brought here today by [facility] to be medically cleared before being checked in. He has a desire to curb his alcohol abuse, and has been trying to do so for the last few years. Nursing Notes Stated Complaint: WITHDRAWAL Chief Complaint: Substance Abuse Nursing Notes Reviewed: Yes Allergies: Coded Allergies: caffeine (Verified Adverse Reaction, Mild, raises my heart rate too high, 02/21/17) Scheduled Gabapentin (Gabapentin) 400 Mg Capsule 400 MG PO TID Levetiracetam (Levetiracetam) 250 Mg Tablet 250 MG PO BID Lisinopril (Lisinopril) 10 Mg Tablet 10 MG PO HS Metoprolol Tartrate (Metoprolol Tartrate) 50 Mg Tablet 50 MG PO BID Sertraline HCl (Sertraline) 100 Mg Tablet 200 MG PO DAILY Thiamine Mononitrate (Vitamin B-1) 100 Mg Tablet 100 MG PO DAILY General Time Seen by Provider: 17:02 Chief Complaint Intoxicated, alcohol Hx Obtained From: Patient Severity: Current: No pain currently Risk-Overdose/Alcohol Tox )( Suicide Risk Stratification RF Statements: Risk factors reviewed Past Medical History Past Medical History Alcoholism Depression Seizures secondary to withdrawal HTN- taking Metoprolol PTSD Chronic dental infection Carpal tunnel syndrome Low back pain 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 Alcohol Use: >5 per day Drug Use: THC Other Social History: Frequent ED visitor, Homeless Occupation Homeless, 01/01/2017 Ambulatory Status Independent Review of Systems Basic Review of Systems : No dysuria Hematologic: No bleeding Constitutional: Reports: Malaise Eyes: Denies: Diplopia Respiratory: Denies: Dyspnea on exertion, Non-productive cough Cardiovascular: Denies: Chest pain GI: Reports: Nausea, Denies: Abdominal pain, Constipation, Diarrhea, Vomiting Neurologic: Reports: Confusion, Headache, Problem walking, Shaking, Denies: Bladder dysfunction, Bowel dysfunction, Change LOC, Dizziness, Spinning sensation Psychiatric: Reports: Agitation, Anxiety, Confusion, Depression, Denies: Suicidal ideation Complete sys rev & neg: except as marked. Physical Exam Initial Vital Signs Vital Signs (First) Date Time Temp Pulse Resp B/P Pulse Ox O2 Delivery O2 Flow Rate FiO2 02/21/17 16:19 36.7 132 24 184/118 97 Room Air Initial VS: Reviewed, Vital signs abnormal Head / Eyes: Atraumatic, Normocephalic, PERRL ENT: Mucous membranes moist, Conjunctiva normal, No scleral icterus Neck: Supple, Non-tender, Full range of motion Extremities: Vascular intact, Neuro intact, No swelling, No tenderness Skin: Warm, Dry, No cyanosis General/Constitutional: Awake, Alert, No acute distress, Cooperative, Not toxic appearing Alertness: Positive: Disoriented, Negative: Obtunded Appearance / Presentation: Positive: Hygiene poor, Intoxicated, Negative: In pain Abdomen: Atraumatic, Soft, Non-tender, No guarding, No rebound, BS normoactive , No distention Psychiatric: Mood NL, Not suicidal, Not homicidal, No hallucinations Interpretation & Diagnostics Lab Results Interpretation Result Diagram: 02/21/17 1712 02/21/17 1712 Test 02/21/17 17:12 02/21/17 17:20 02/21/17 18:25 White Blood Count 3.6th/mm3 (3.8-10.1) Red Blood Count 4.51mil/mm3 (4.40-5.80) Hemoglobin 13.9g/dL (13.8-17.2) Hematocrit 38.9% (41.0-50.0) Mean Corpuscular Volume 86.3fL (81-100) Mean Corpuscular Hemoglobin 30.8pg (27.0-35.0) Mean Corpuscular Hemoglobin Concent 35.7% (32.0-37.0) Red Cell Distribution Width 13.7% (12.3-15.4) Platelet Count 86bil/L (150-400) Neutrophils (%) (Auto) 70.3% (40-74) Lymphocytes (%) (Auto) 21.0% (14-46) Monocytes (%) (Auto) 8.4% (4-12) Eosinophils (%) (Auto) 0.3% (0-5) Basophils (%) (Auto) 0% (0-3) Hold Purple Top Tube Received (Received) Prothrombin Time 10.0sec (8.1-12.5) Prothromb Time International Ratio 0.94ratio Hold Blue Top Tube Received (Received) Sodium Level 137mEq/L (134-144) Potassium Level 3.5mEq/L (3.5-5.2) Chloride Level 95mEq/L (97-108) Carbon Dioxide Level 19mmol/L (18-29) Blood Urea Nitrogen 5mg/dL (6-24) Creatinine 0.58mg/dL (0.76-1.27) Estimat Glomerular Filtration Rate 155mL/min (>59) Glucose Level 104mg/dL (60-99) Calcium Level 8.7mg/dL (8.5-10.1) Magnesium Level 1.8mg/dL (1.6-2.6) Total Bilirubin 0.6mg/dL (0.0-1.2) Aspartate Amino Transf (AST/SGOT) 105U/L (0-50) Alanine Aminotransferase (ALT/SGPT) 66U/L (0-44) Alkaline Phosphatase 125U/L (25-150) Total Protein 7.6g/dL (6.4-8.4) Albumin 4.4g/dL (3.4-5.0) Hold Formoso Top Tube Received (Received) Hold Cervantes Top Tube Received (Received) Hold Urine Received (Received) Urine Color Yellow (YELLOW) Urine Appearance Clear (CLEAR,HAZY) Urine pH 5.5 (5.0-8.0) Urine Specific Fossil 1.020 (1.003-1.035) Urine Protein Tracemg/dL (NEG,TRACE) Urine Glucose (UA) Negativemg/dL (NEGATIVE) Urine Ketones Negativemg/dL (NEGATIVE) Urine Occult Blood Negative (NEGATIVE) Urine Nitrite Negative (NEGATIVE) Urine Bilirubin Negative (NEGATIVE) Urine Urobilinogen Normalmg/dL (NORMAL) Urine Leukocyte Esterase Negative (NEGATIVE) Urine RBC 0-2/hpf (0-2) Urine WBC 0-5/hpf (0-5) Urine Epithelial Cells Occasional/hpf (NONE-MOD) Urine Crystals None seen (NONE SEEN) Urine Bacteria Few/hpf (NONE-FEW) Urine Hyaline Casts 5/20/lpf (NONE) Urine Granular Casts None seen (NONE SEEN) Urine Waxy Casts None seen (NONE SEEN) Urine Red Blood Cell Casts None seen (NONE SEEN) Urine White Blood Cell Casts None seen (NONE SEEN) Urine Mucus Present (None Seen) Urine Trichomonas None seen (NONE SEEN) Urine Yeast None (NONE SEEN) Urinalysis Comment None Urine Culture Reflexed Not indicated Lab Results Interpretation: CBC nonspecific leukopenia, chronic lumbar cytopenia CMP mild chronic LFT abnormalities, no acidosis Alcohol elevated Re-Eval/Medical Decision Source of Hx: Old records Re-Evaluation/Progress : Time of Eval: 19:20 Re-Evaluation/Progress Note: Pt rechecked. Infored pt of plan for admission. Pt understands and agrees with plan for admission. All questions addressed. She is still tachycardic and tremulous, receiving additional diazepam Consultation : Referral / Consult Name: Hiwot Washington MD Consulted With: Hospitalist Call Returned at: 19:20 Coal Bagger: Will see patient, Agrees with eval, Agrees with plan, Accepts admit Differential Diagnosis: Positive: Alcohol abuse Counseled Regarding: Diagnosis, Lab results, Need for admission Discharge & Departure Impression: Primary Impression: Alcohol withdrawal Complication of substance-induced condition: with delirium Qualified Code: F10.231 - Alcohol dependence with withdrawal delirium Additional Impressions: Alcohol intoxication Complication of substance-induced condition: with delirium Qualified Code: F10.121 - Alcohol abuse with intoxication delirium Thrombocytopenia Blunt head trauma Disposition: ADMITTED TO HOSPITAL Discharge Condition All VS Reviewed: Yes Condition: Stable Referrals: Silvana Sams MD (PCP) Crit Care Except Billable Proc Time Spent: 30-74 minutes Services Performed: Patient management by me, Time spent at bedside, Reviewing test results, Reviewing imaging, Discussing patient care, Documentation in record Critical Care Notes: Management of significant withdrawal with ongoing tachycardia. Attending Statement This patient was initially seen by the resident, but I personally interviewed and examined this patient. He has long history of alcohol abuse and multiple ED visits and some numerous hospitalizations for withdrawal, he also reports some history of dementia and is a very poor historian. He arrives intoxicated, but complaining of beginning since withdrawal with tremulousness, tachycardia, worsening confusion. He cannot provide much additional history. On exam is got some periorbital ecchymosis around the right eye, but no other signs of trauma. He has no focal deficits. He has poor memory, he is awake, answering questions and does not have slurred speech. He is tachycardic, tremulous, and clinically and withdrawal despite an elevated EtOH level. He feels like he is having withdrawal. Not tell me how much she drinks. His abdomen soft nontender and I do not appreciate stigmata of liver failure. Noncontrast head CT was normal. Glucose was normal. Labs reveal chronic, cytopenia. EtOH is severely elevated, but nonetheless patient's clinical and significant withdrawal symptoms hydrated diazepam. He received a banana bag. On reevaluation he still withdrawn, at this point the plan is admission for continued medical therapy. Elvin Bryan DO Feb 21, 2017 17:43 Ebony Vera Feb 21, 2017 19:20 Gasper Louis MD Feb 21, 2017 19:31
--- NOTE | 2017-02-21 18:13 | DRSVH ---
PROCEDURE: CT BRAIN WITHOUT CONTRAST ([id number]) INDICATIONS: trauma, ETOH TECHNIQUE: Noncontrast 4.5 mm thick angled axial sections acquired from the foramen magnum to the vertex, with c oronal reformats. COMPARISON: [facility], CT, CT BRAIN WO CON, 10/18/2016, 14:38. FINDINGS: Image quality: Excellent. CSF spaces: Basal cisterns are patent. No extra-axial fluid collections. The ventricles are symmet leslie in size and shape. There is mild to moderate cerebral volume loss, with resultant ventricular an d sulcal prominence. Brain: No intracranial hemorrhage, mass, or mass effect. There are subcortical, periventricular and deep white matter hypodensities consistent with mild chronic small vessel ischemic changes. There i s intracranial internal carotid artery atherosclerosis. Skull and face: Calvarium and visualized facial bones are intact, without suspicious lesions. Sinuses: Visualized sinuses and mastoids are clear. IMPRESSION: 1. No acute intracranial abnormality. 2. Chronic white matter small vessel ischemic changes and cerebral volume loss. Dictated by: Dion Begum M.D. on 02/21/2017 at 18:10 Approved by: Dion Begum M.D. on 02/21/2017 at 18:11
[2017-02-21 18:57] LABS: APPEARANCE,URINE CLEAR (CLEAR,HAZY); COLOR,URINE YELLOW (YELLOW); OCCULT BLOOD,URINE NEGATIVE (NEGATIVE); PH,URINE 5.5 (5.0-8.0); UROBILINOGEN,URINE NORMAL (NORMAL)
[2017-02-21] MEDS ORDERED: Multivitamin w/Vit K Inj 10 ML, Thiamine Inj 100 MG, Folic Acid Inj 1 MG, Magnesium Sul... IV ONE ×5 (19:23)
--- NOTE | 2017-02-21 19:51 | PCM.HPMED ---
Subjective Date of Service Feb 21, 2017 Primary Provider: Admitting Physician: Primary Care Physician: Silvana Sams MD Attending Physician: Chief Complaint: Alcohol withdrawal History of Present Illness: Dion Treviño is a 51 year old male with a history of alcohol dependence, seizure disorder, depression, and hypertension who presents with alcohol intoxication. He was brought to [facility] by [facility] to be medically cleared before being checked in on 02/21/17. At the time of my exam the patient was unable to provide any history as he was not oriented to person, place, or time. He did mention that he was not any pain. Per the ED records the patient stated his last drink was early this morning. He stated he felt nauseous, disoriented, shaky, and somewhat off balanced on initial presentation. Patient is well-known to this facility and last admission was in early January for management of alcohol withdrawal. In the ED the patient was afebrile with a heart rate of 132, respiratory rate 24 , blood pressure 184/118, O2 sats ration of 97% on room air. Labs are pertinent for thrombocytopenia of 86, elevated aminotransferases, and breathalyzer of 0.245. CT head negative for acute intracranial process. Patient placed on C1 protocol and received banana bag in the ED. Patient admitted for management of alcohol withdrawal. Review of Systems: Review of systems was unable to be obtained due to patient's intoxication. Allergies Coded Allergies: caffeine (Verified Adverse Reaction, Mild, raises my heart rate too high, 02/21/17) Home Medications Levetiracetam (Levetiracetam) 250 Mg Tablet 250 MG PO BID Metoprolol Tartrate (Metoprolol Tartrate) 50 Mg Tablet 50 MG PO BID Phenytoin Sodium Extended (Phenytoin Sodium Extended) 100 Mg Capsule 200 MG PO BID Sertraline HCl (Sertraline) 100 Mg Tablet 200 MG PO DAILY Thiamine Mononitrate (Vitamin B-1) 100 Mg Tablet 100 MG PO DAILY Lactulose (Lactulose) 20 Gm/30 Ml Solution 20 GM PO Q6H PRN PRN confusion Lisinopril (Lisinopril) 10 Mg Tablet 10 MG PO HS PRN PRN For HYPERtension PMH Obtained from prior hospitalizations. Unable to confirm due to patient's intoxication. 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 Unable to confirm due to patient's intoxication. Right ankle surgery Family History Unable to obtain due to drunkenness. Social History Hx Alcohol Use: Yes Alcoholic Drinks Per Day: 7-10 beers/day Hx Substance Use: Yes (marijuana) Smoking Status: Never Smoker Living Arrangement: Homeless Jail Additional Information Obtained from prior hospitalizations. Unable to confirm due to patient's intoxication. Exam Vital Signs Vital Sign - Last Date Time Temp Pulse Resp B/P Pulse Ox O2 Delivery O2 Flow Rate FiO2 02/21/17 16:19 36.7 132 24 184/118 97 Room Air Exam General: Unkept male, tremulous, somnolent. HEENT: Normocephalic. Ecchymotic area around his right eye. External ears without defect. Pupils equal, round, and reactive to light and accommodation. Anicteric sclerae, moist conjunctivae, and no lid lag. Dry oral mucosa. Neck: Supple with full range of motion. No jugular venous distension. No bruits. No lymphadenopathy or thyromegaly. Cardiovascular: Tachycardic with regular rhythm no murmurs, rubs, or gallops appreciated Pulmonary: Diffuse faint bilateral wheezes. Normal respiratory effort with no use of accessory muscles. Abdomen: Bowel tones present. Soft, nontender, nondistended. No hepatosplenomegaly or masses appreciated. Extremities: No clubbing, cyanosis, edema, or lymphadenopathy appreciated. Skin: Normal temperature, turgor, and texture; no rash, ulcers, or subcutaneous nodules appreciated. Neurological: Cranial nerves grossly intact. Normal muscle strength, tone, and bulk. Reflexes, coordination, and sensory function within normal limits. Psychiatric: Intoxicated. Not alert or oriented to person, place, and time. Lab and Diagnostics Result Diagram: 02/21/17 1712 02/21/17 1712 X-Rays, CTs and MRIs CT BRAIN WITHOUT CONTRAST ([id number]) IMPRESSION: 1. No acute intracranial abnormality. 2. Chronic white matter small vessel ischemic changes and cerebral volume loss. Dictated by: Dion Begum M.D. on 02/21/2017 at 18:10 Approved by: Dion Begum M.D. on 02/21/2017 at 18:11 12-lead ECG Sinus tachycardia with heart rate of 107. With no significant ST changes. No significant change from prior EKG on 01/11/17. Assessment & Plan Dion Treviño is a 51 year old male with a history of alcohol dependence, seizure disorder, depression, and hypertension who presents with alcohol intoxication. He was brought to [facility] by [facility] to be medically cleared before being checked in on 02/21/17. CIWA started in the ED and patient admitted for additional management. Chronic alcohol dependence and acute alcohol intoxication, present on admission. - CIWA protocol initiated. Breathalyzer was 0.245 on presentation to the ED. - Valium to be given per CIWA protocol. - Banana given in ED; - IV thiamine 200mg daily. - Multivitamin daily. - EKG showed sinus tachycardia but no other change from prior EKG on 01/11/2017. - Due to patient's altered mental status CT of the brain was obtained and revealed no acute intracranial abnormality. - Case management referral for resources for rehab. Day team to check if he is already established with [facility]. Thrombocytopenia, present on admission, active. - Platelets 86 on admission. - Likely secondary to chronic alcohol use. - Monitor liver function is below. - Repeat CBC with differential in the morning. Seizure disorder, chronic, presume stable. - Unsure of patient's compliance. Prior visit patient was not taking home keppra. - Unclear whether patient is also on phenytoin. Day team to verify. - Continue home meds: Keppra 250 mg BID. - Seizures precautions in place. Hypertension, chronic, presume stable. - Continue home regimen of metoprolol tartrate 50 mg BID. - Continue home regimen of Lisinopril 10 mg nightly. Depression with anxiety, chronic, presume stable. - Continue home regimen of sertraline 200 mg daily. History of alcohol related liver disease with current elevation of transaminases , presume stable. - PT/INR normal. AST 105 and ALT 66. - No classic stigmata on presentation. - Continue to monitor CMP. - Hepatitis panel negative in 2016. - HIV ordered. - Inebriated on admission. PRN Medications - Acetaminophen as needed for mild pain/fever/headache - Bowel regimen as needed - Antiemetic as needed Patient is admitted under inpatient status with expected length of stay greater than 2 midnights due to severity of presenting symptoms, risk of adverse event, and complexity of treatment plan. Pain Evaluation: Adequate Pain Control GI Prophylaxis: Not indicated VTE Prophylaxis: Sub-Q Heparin (Unfractionated), SCDs Resuscitation Status: CPR: Attempt Resuscitation Attending Statement Pt seen and examined by myself and agree with above plan. MARY BIRD DO Feb 21, 2017 19:51 Hiwot Washington MD Feb 22, 2017 06:05
[2017-02-21] MEDS ORDERED: Ondansetron 2 mg/mL 2 mL Inj IVPUSH PRN (20:25)
[2017-02-21] MEDS ORDERED: Polyethylene Glycol (PEG) 17 Gm Powder PO PRN (20:25)
[2017-02-21] MEDS ORDERED: Alum-Mag Hydrox-Simeth 30 mL Suspension PO PRN (20:25)
[2017-02-21 21:17] VITALS: BP 148/78; PULSE 121; RESP 24; O2SAT 94
[2017-02-21 21:20] VITALS: BP 154/94; PULSE 110; RESP 20; O2SAT 94
--- NOTE | 2017-02-21 21:20 | NUR ---
Arrived on the floor Pt arrived on the floor via gurney with Banana bag infusing. Pt awake, tremolous but confused of date and time. He is oriented of self. He is able to answer questions but poor historian and memory recall. Admission questions recalled values from very recent hospitalization.
[2017-02-21] MEDS ORDERED: Thiamine Inj 200 MG in Dextrose 5% 50 ML IV SCH (21:35)
[2017-02-21] MEDS: 0.9% Sodium Chloride 1,000 ML IV SCH (22:27)
[2017-02-21 22:41] VITALS: PULSE 100
[2017-02-21 23:29] VITALS: BP 155/83; PULSE 83; RESP 18; O2SAT 97
[2017-02-21] MEDS: THIAMINE IV SCH (23:56)
[2017-02-21] MEDS: DEXTROSE 5% IV SCH (23:56)
[2017-02-21] MEDS: Heparin 5,000 Unit/mL Inj SUBQ SCH (23:56)
[2017-02-22] VITALS (7 sets, daily range): BP systolic 147–166; BP diastolic 81–97; PULSE 70–91; RESP 20–22; O2SAT 95–99
[2017-02-22 03:15] LABS: Mean Corpuscular Hemoglobin 30.8 pg (27.0-35.0); Mean Corpuscular Volume 86.7 fL (81-100)
[2017-02-22 03:44] LABS: Magnesium 2.2 mg/dL (1.6-2.6); Phosphorus 2.8 mg/dL (2.5-4.9)
--- NOTE | 2017-02-22 05:16 | NUR ---
CIWA/HTN Pt awaken with stimuli. Oriented to self but forgetful of date and place most of the times. He is poor historian and does not remember what happened to him. Md made aware of c/o abd/chest discomfort pointing to his mid-epigastric area. Maalox given and pt reports pain relief from that. Tylenol given for headache. Valium as per CIWA given with effectiveness noted. Telemetry ST in low 100s-115s during admit. SR in 70s to 80s at this time. HR up to low 100s with activity. Metoprolol given with some effectiveness noted. No attempts to get out of bed. Calls staff for assistance. [facility] alarm on.
[2017-02-22] MEDS ORDERED: KCl 40 mEq/D5W 500 mL 40 MEQ in IV Premix 500 EACH IV ONE (06:50)
[2017-02-22] MEDS: Multivit-Miner-Folic Acid-Iron Tablet PO SCH (08:18)
[2017-02-22] MEDS: Heparin 5,000 Unit/mL Inj SUBQ SCH (08:18)
[2017-02-22] MEDS ORDERED: Potassium Chloride 20 mEq SR Tablet PO ONE ×2 (08:45→19:55)
[2017-02-22] MEDS: THIAMINE IV SCH (09:39)
[2017-02-22] MEDS: DEXTROSE 5% IV SCH (09:39)
[2017-02-22] MEDS: 0.9% Sodium Chloride 1,000 ML IV SCH ×3 (09:44→23:08)
--- NOTE | 2017-02-22 10:06 | PCM.PNMED ---
Subjective Date of Service Feb 22, 2017 Subjective Overnight there were no acute events. Mr. Treviño says his relapse was largely due to him being depressed and on the streets. He has no complaints but he would like to resume his [place] services if possible and explore other options if they are available. He denies any chest pain, palpitations, seizures, abdominal pain, nausea or vomiting. Exam Vital Signs Vital Sign - Last Date Time Temp Pulse Resp B/P Pulse Ox O2 Delivery O2 Flow Rate FiO2 02/22/17 07:53 82 22 166/97 99 Room Air 02/22/17 03:10 36.8 02/21/17 23:29 1.00 Intake and Output 02/21/17 02/21/17 02/22/17 Cumulative From/Thru 15:00 23:00 07:00 02/21/17 16:19 - 02/22/17 06:02 Intake Total 1260 ml 2958 ml 4218 ml Output Total 1000 ml 1000 ml Balance 1260 ml 1958 ml 3218 ml Intake Oral 240 ml 1240 ml 1480 ml IV Total 1020 ml 1718 ml 2738 ml Output Urine Total 1000 ml 1000 ml # Voids 3 3 Exam General: Unkept and tremulous male eating breakfast in NAD, interacting appropriately. HEENT: Normocephalic with an ecchymotic area around his right eye. PERRLA. Membranes pink but dry. Neck: Supple with full range of motion. No JVD, thyromegaly. Cardiovascular: RRR without murmur, rubs, or gallops appreciated Pulmonary: Faint bilateral wheezing but no crackles/rhonchi. Normal respiratory effort. Abdomen: Bowel tones present. Soft, nontender, nondistended. No hepatosplenomegaly appreciated. Extremities: No clubbing, cyanosis, edema. Dirt present under all of his fingernails. Skin: Normal temperature, turgor, and texture; no rash, ulcers. Ecchymotic right eye. Neurological: Cranial nerves grossly intact. Normal muscle strength, tone, and bulk. Psychiatric: Flat affect and mood. A&Ox3. IVs and Medications Medications Reviewed: Medications were reviewed in detail Lab and Diagnostics Result Diagram: 02/22/17 0255 02/22/17 0255 X-Rays, CTs and MRIs CT BRAIN WITHOUT CONTRAST ([id number]) IMPRESSION: 1. No acute intracranial abnormality. 2. Chronic white matter small vessel ischemic changes and cerebral volume loss. Dictated by: Dion Begum M.D. on 02/21/2017 at 18:10 Approved by: Dion Begum M.D. on 02/21/2017 at 18:11 12-lead ECG Sinus tachycardia with heart rate of 107. With no significant ST changes. No significant change from prior EKG on 01/11/17. Assessment & Plan Dion Treviño is a 51 year old male with a history of alcohol dependence, seizure disorder, depression, and hypertension who presents with alcohol intoxication. He was brought to [facility] by [facility] to be medically cleared before being checked in on 02/21/17. CIWA started in the ED and patient admitted for additional management. Chronic alcohol dependence and acute alcohol intoxication, present on admission. Improving. - Continue CIWA protocol - Valium to be given per CIWA protocol. - IV thiamine 200mg daily, multivitamin daily - COUNTY ASSESSOR consulted as there is history of [place] services but unclear as to what/ when Hypokalemia, not present on admission, acute. Ongoing. - Potassium trending down currently 2.9 - Replete with 40meQ IV and 40meQ PO - Mag stable ~2 - Continue to trend Thrombocytopenia, present on admission, active. Stable. - Likely secondary to chronic alcohol use. - Platelets stable ~80 for now - Hold heparin for possible HIT - Monitor liver functions Seizure disorder, chronic, presumed stable. - There was confusion as to his meds (Keppra vs. Dilantin) overnight as he was unable to communicate - Keppra was started overnight but changed to Dilantin 200mg BID after his PCP was called and faxed over his new med list - Seizures precautions in place. Hypertension, chronic, presume stable. - Continue home Metoprolol tartrate 50 mg BID. - Continue home Lisinopril 10 mg nightly. Depression with anxiety, chronic, presumed stable. - Continue home regimen of sertraline 200 mg daily. History of alcohol related liver disease with current elevation of transaminases. Improving. - PT/INR normal. - LFT's trending down, AST 75 and ALT 56. - Hepatitis panel negative 09/2016. - HIV pending PRN Medications - Acetaminophen as needed for mild pain/fever/headache - Bowel regimen as needed - Antiemetic as needed Disposition: Patient will likely be here 1-2 more days depending on his ongoing medical improvement and complexity of treatment plan. GI Prophylaxis: Not indicated VTE Prophylaxis: Sub-Q Heparin (Unfractionated), SCDs Resuscitation Status: CPR: Attempt Resuscitation Attending Statement The patient was seen and examined together with Dr. Culver on 02/22/17 and I have added additional information to the note above. Hadley Culver DO Feb 22, 2017 10:06 Martha Oconnor DO Feb 27, 2017 21:28
--- NOTE | 2017-02-22 16:16 | NUR ---
CIWA pt alert and oriented to person, place, time and situation. generalized tremors still noted. pt reports various location of pain. tylenol given for comfort. CIWA scoring 17 to 12, with valium given per md order and effective results. will continue to monitor.
--- NOTE | 2017-02-22 16:22 | NUR ---
Social Work: Multidisciplinary Rounds/Screen D: Pt discussed in am rounds. Pt is not medically stable for discharge or CD assessment. Pt's CIWA is currently 17. Pt is well known to case management staff. Pt has a history of ETOH use and is admitted for Substance abuse. Pt was recently living at [facility]. It is unclear whether the pt will be able to return to this supportive housing due to his recent relapse. has placed order for CD assessment from [facility]. [facility] acknowledges order and will see the patient when he is appropriate for further assessment Pt's case preparer and liner is Carmelo ([phone]) at [facility]. CM is not in the office today, per administrative receptionist. [facility] directed to the CM phone number. A: Pt who was previously living at [facility] but is otherwise homeless P: Evolving; [facility] to meet with the pt to complete assessment and coordinate discharge planning. Pt considered high risk due to multiple admissions, ETOH use, housing barriers and other psychosocial issues. SALOME Dyer
--- NOTE | 2017-02-22 17:46 | NUR ---
spiritual care: pt request brief conversational visit. pt agreeable for eucharistic visit. briefly described being "laying down in the middle of the street" and of his connections at [facility] and support from rn case management. pt described current chest discomfort.
[2017-02-22] MEDS: Phenytoin 100 mg ER Capsule PO SCH (20:01)
[2017-02-23] VITALS (10 sets, daily range): BP systolic 131–165; BP diastolic 80–93; PULSE 63–83; RESP 16–20; O2SAT 94–98
[2017-02-23 03:17] LABS: BASOPHILS % (AUTO) 0 % (0-3); EOSINOPHILS % (AUTO) 1.6 % (0-5); MONOCYTES % (AUTO) 8.8 % (4-12); Mean Corpuscular Hemoglobin 31.3 pg (27.0-35.0); Mean Corpuscular Volume 86.8 fL (81-100); NEUTROPHILS % (AUTO) 64.3 % (40-74); Platelet Count 77 bil/L (150-400)
--- NOTE | 2017-02-23 05:40 | NUR ---
Ciwa Patient doing very well this shift CIWA score of 6, no Valium utilized this shift. at start of shift c/o of being warm this resolved with dose of acetaminophen- no further complaints. Ambulated to restroom with steady gait and minimal assistance. Bed in low position, call light within reach, frequent rounding for safety.
--- NOTE | 2017-02-23 10:17 | PCM.PNMED ---
Subjective Date of Service Feb 23, 2017 Subjective Overnight there were no acute events. Mr. Treviño is feeling better this morning, saying he is feeling less shaky and weak than yesterday. He denies any fever/chills, nausea/vomiting, abdominal pain , chest pain, SOB, or visual/auditory hallucinations. Exam Vital Signs Vital Sign - Last Date Time Temp Pulse Resp B/P Pulse Ox O2 Delivery O2 Flow Rate FiO2 02/23/17 05:57 78 02/23/17 02:53 36.7 20 137/87 95 Room Air 02/21/17 23:29 1.00 Intake and Output 02/22/17 02/22/17 02/23/17 Cumulative From/Thru 15:00 23:00 07:00 02/21/17 16:19 - 02/23/17 06:05 Intake Total 947 ml 1540 ml 1928 ml 8633 ml Output Total 600 ml 1800 ml 3400 ml Balance 947 ml 940 ml 128 ml 5233 ml Intake Oral 1240 ml 600 ml 3320 ml IV Total 947 ml 300 ml 1328 ml 5313 ml Output Urine Total 600 ml 1800 ml 3400 ml # Voids 2 5 # Bowel Movements 2 2 Exam General: Unkept male watching TV in [facility], interacting appropriately. HEENT: Normocephalic with a ecchymotic area around his right eye. PERRLA. Membranes pink, slightly dry. Neck: Supple with full range of motion. No JVD, thyromegaly. Cardiovascular: RRR without murmur, rubs, or gallops appreciated Pulmonary: Faint bilateral wheezing but no crackles/rhonchi. Normal respiratory effort. Abdomen: Bowel tones present. Soft, nontender, nondistended. No hepatosplenomegaly. Extremities: No clubbing, cyanosis, edema. Dirt present under all of his fingernails. Skin: Normal temperature, turgor, and texture; no rash, ulcers. Ecchymotic right eye. Neurological: Cranial nerves grossly intact. Normal muscle strength, tone, and bulk. His tremor is less intense than yesterday. Psychiatric: Flat affect and mood. A&Ox3. IVs and Medications Medications Reviewed: Medications were reviewed in detail Lab and Diagnostics Result Diagram: 02/23/17 0300 02/23/17 0300 X-Rays, CTs and MRIs CT BRAIN WITHOUT CONTRAST ([id number]) IMPRESSION: 1. No acute intracranial abnormality. 2. Chronic white matter small vessel ischemic changes and cerebral volume loss. Dictated by: Dion Begum M.D. on 02/21/2017 at 18:10 Approved by: Dion Begum M.D. on 02/21/2017 at 18:11 12-lead ECG Sinus tachycardia with heart rate of 107. With no significant ST changes. No significant change from prior EKG on 01/11/17. Assessment & Plan Dion Treviño is a 51 year old male with a history of alcohol dependence, seizure disorder, depression, and hypertension who presents with alcohol intoxication. He was brought to [facility] to be medically cleared before being checked in on 02/21/17. CIWA started in the ED and patient admitted for additional management. Chronic alcohol dependence and acute alcohol intoxication, present on admission. Improving. - Continue CIWA protocol; scores ~6 overnight - Valium to be given per CIWA protocol. - IV thiamine 200mg daily, multivitamin daily - GRADER PATROL consulted as there is history of [place] services but unclear as to what/ when Hypokalemia, not present on admission, acute. Resolved. - Potassium at 3.7 - 40meQ PO ordered again today - Mag stable ~2 - Continue to trend Thrombocytopenia, present on admission, active. Stable. - Likely secondary to chronic alcohol use; no evidence of bleeding - Platelets continue to be stable ~80 - Continue to hold heparin for possible HIT - Monitor liver functions Seizure disorder, chronic, stable. - Continue Dilantin 200mg BID - Seizures precautions in place. Hypertension, chronic, stable. - Continue home Metoprolol tartrate 50 mg BID. - Continue home Lisinopril 10 mg nightly. Depression with anxiety, chronic, stable. - Continue home Sertraline 200 mg daily. History of alcohol related liver disease with current elevation of transaminases. Improving. - PT/INR normal. - LFT's continue trending down - Hepatitis panel negative 09/2016. - HIV still pending PRN Medications - Acetaminophen as needed for mild pain/fever/headache - Bowel regimen as needed - Antiemetic as needed Disposition: Patient will likely be here at least through tomorrow depending on his continued medical stability and outpatient resource set up. At this time it seems patient has exhausted many of his resources as he has been in and out of alcoholic rehabilitation places. At this time social work is trying to find a place however it will most likely be very difficult as the patient has burned a lot of bridges. The patient states that he should have housing as this was supposed be set up through community actions. Social work is looking into this currently. GI Prophylaxis: Not indicated VTE Prophylaxis: Sub-Q Heparin (Unfractionated), SCDs Resuscitation Status: CPR: Attempt Resuscitation Attending Statement The patient was seen and examined together with Dr. Culver on 02/23/17 and I have added additional information to the note above. Hadley Culver DO Feb 23, 2017 10:17 Martha Oconnor DO Feb 23, 2017 13:21
[2017-02-23] MEDS ORDERED: Potassium Chloride 20 mEq SR Tablet PO ONE (10:25)
[2017-02-23] MEDS: 0.9% Sodium Chloride 1,000 ML IV SCH (10:54)
[2017-02-23] MEDS: Phenytoin 100 mg ER Capsule PO SCH ×2 (11:21→21:46)
[2017-02-23] MEDS: THIAMINE IV SCH (11:21)
[2017-02-23] MEDS: DEXTROSE 5% IV SCH (11:21)
[2017-02-23] MEDS: Multivit-Miner-Folic Acid-Iron Tablet PO SCH (11:22)
--- NOTE | 2017-02-23 14:38 | NUR ---
Social Work: Initial Assessment/Multidisciplinary Rounds D: Pt discussed in morning rounds; pt is not yet medically stable for discharge. Pt CIWA between 4-6 with tremors. Capacity for self-care discussed; no concerns for capacity for self-care. Pt has an extensive CD history and was previously at [facility] at the [facility]. SEAMLESS TUBE MILL OPERATOR met with the patient at bedside. Sw role explained, contact information and d/c planning check list provided. Pt provided with AD information as he has not yet completed these directives. Pt states that he was at the [facility] but cannot recall why he no longer lives there. The patient states that he is working with his case operator at [facility], [facility], to get into an apartment. The patient states he doesn't really want to go back to [facility] but states that if it is his only housing resource, he would be willing to consider it. Pt provided verbal consent for SEAMLESS TUBE MILL OPERATOR to contact [facility] to inquire about his status with them. SEAMLESS TUBE MILL OPERATOR spoke with household appliances salesperson at [facility] (Voice: [phone]). JACKIE is on file there. She states that the pt was at [facility] for approximately one month but checked himself out of the program as he did not wish to comply with the rules of the [place] (sobriety). At this time they do not have any beds and states she is not aware of the pt's status with [facility] and whether the pt is welcome back or not. SEAMLESS TUBE MILL OPERATOR would need to speak with education program coordinator during the weekday to determine this. SEAMLESS TUBE MILL OPERATOR informed the patient that [facility] is not a discharge options for him at this time. The patient states that he has a camp, near [facility] that he usually stays at. SEAMLESS TUBE MILL OPERATOR inquired if the patient has financial means to pay for a motel. The patient states that he does and that he might consider getting a motel after discharge. Pt declined to sign JACKIE to complete a CD assessment. Pt is currently open with [employer] for CD. A: Pt who is homeless at the time. P: Anticipate the pt to discharge back to homelessness; pt continues to drink and has chosen to be non-compliant with programs that can provide housing and treatment. SALOME Dyer Addendum: 02/23/17 at 1459 by DUKE MAC SS Amended: Links added.
--- NOTE | 2017-02-23 18:24 | NUR ---
Transfer 0908 - Discussed his care with Dr. Oconnor and the rest of the multidisciplinary care team during morning rounds. Dr. Oconnor said the goal was to transfer him to another floor as he was doing much better. 1609 - Paged Dr. Culver who called back right away. Asked him if the patient's telemetry could be discontinued as he had remained stable cardiac-beth. He said yes, and an order was placed to discontinue it. It was removed from the patient shortly after. 1700 - Gave report to Luzmaria Warner RN on [facility] for his transfer to [facility]. 1725 - He was transferred by the [facility] at this time from [facility] 2000 to [facility] 1028. His belongings and hard chart was taken with him. Care continues. Addendum: 02/23/17 at 1938 by LUZMARIA WARNER RN Pt arrived at 1730 to [facility] unit. belongings brought down with pt. Oriented to room. Call light in reach. No c/o pain other than chronic back pain - Kpad setup. nonessential tremor noted. IV patent and infusing. Chart brought down with pt. Care continues
[2017-02-24] MEDS: 0.9% Sodium Chloride 1,000 ML IV SCH (01:28)
--- NOTE | 2017-02-24 01:47 | NUR ---
PSYCH; pleasant, cooperative. Sleeping off and on this shift.
[2017-02-24 06:58] VITALS: BP 159/92; PULSE 73; RESP 16; O2SAT 98
[2017-02-24 08:09] LABS: BASOPHILS % (AUTO) 0.4 % (0-3); EOSINOPHILS % (AUTO) 1.5 % (0-5); MONOCYTES % (AUTO) 11.8 % (4-12); Mean Corpuscular Hemoglobin 31.3 pg (27.0-35.0); Mean Corpuscular Volume 88.1 fL (81-100); NEUTROPHILS % (AUTO) 63.3 % (40-74); Platelet Count 83 bil/L (150-400)
[2017-02-24 09:20] VITALS: BP 124/78; PULSE 71; RESP 18; O2SAT 98
[2017-02-24] MEDS: Phenytoin 100 mg ER Capsule PO SCH ×2 (10:22→22:10)
[2017-02-24] MEDS: THIAMINE IV SCH (10:22)
[2017-02-24] MEDS: Multivit-Miner-Folic Acid-Iron Tablet PO SCH (10:22)
[2017-02-24] MEDS: DEXTROSE 5% IV SCH (10:22)
[2017-02-24 13:16] VITALS: BP 137/84; PULSE 70; RESP 16; O2SAT 97
--- NOTE | 2017-02-24 14:28 | PCM.PNMED ---
Subjective Date of Service Feb 24, 2017 Subjective Patient has some shakiness but overall low CIWA score. Exam Vital Signs Vital Sign - Last Date Time Temp Pulse Resp B/P Pulse Ox O2 Delivery O2 Flow Rate FiO2 02/24/17 13:16 36.7 70 16 137/84 97 Room Air 02/21/17 23:29 1.00 Intake and Output 02/23/17 02/23/17 02/24/17 Cumulative From/Thru 15:00 23:00 07:00 02/21/17 16:19 - 02/24/17 06:58 Intake Total 1800 ml 20186 ml Output Total 700 ml 750 ml 4850 ml Balance -700 ml 1050 ml 5583 ml Intake Oral 800 ml 4120 ml IV Total 1000 ml 6313 ml Output Urine Total 400 ml 550 ml 4350 ml Stool Total 300 ml 200 ml 500 ml # Voids 5 # Bowel Movements 1 3 Exam General: Unkept male watching TV in [place], interacting appropriately. HEENT: Normocephalic with a ecchymotic area around his right eye. PERRLA. Membranes pink, slightly dry. Neck: Supple with full range of motion. No JVD, thyromegaly. Cardiovascular: RRR without murmur, rubs, or gallops appreciated Pulmonary: Faint bilateral wheezing but no crackles/rhonchi. Normal respiratory effort. Abdomen: Bowel tones present. Soft, nontender, nondistended. No hepatosplenomegaly. Extremities: No clubbing, cyanosis, edema. Dirt present under all of his fingernails. Skin: Normal temperature, turgor, and texture; no rash, ulcers. Ecchymotic right eye. Neurological: Cranial nerves grossly intact. Normal muscle strength, tone, and bulk. His tremor is less intense than yesterday. Psychiatric: Flat affect and mood. A&Ox3. IVs and Medications Medications Reviewed: Medications were reviewed in detail Lab and Diagnostics Result Diagram: 02/24/1771202/24/17 07 X-Rays, CTs and MRIs CT BRAIN WITHOUT CONTRAST ([id number]) IMPRESSION: 1. No acute intracranial abnormality. 2. Chronic white matter small vessel ischemic changes and cerebral volume loss. Dictated by: Dion Begum M.D. on 02/21/2017 at 18:10 Approved by: Dion Begum M.D. on 02/21/2017 at 18:11 12-lead ECG Sinus tachycardia with heart rate of 107. With no significant ST changes. No significant change from prior EKG on 01/11/17. Assessment & Plan Dion Treviño is a 51 year old male with a history of alcohol dependence, seizure disorder, depression, and hypertension who presents with alcohol intoxication. [facility] to be medically cleared before being checked in on 02/21/17. CIWA started in the ED and patient admitted for additional management. Chronic alcohol dependence and acute alcohol intoxication, present on admission. Improving. - Continue CIWA protocol; - Valium to be given per CIWA protocol. - IV thiamine 200mg daily, multivitamin daily - SYSTEM DESIGNER consulted as there is history of [place] services . Patient awaiting outpatient resource set up Hypokalemia, not present on admission, acute. Resolved. - Continue to trend Thrombocytopenia, present on admission, active. Stable. - Likely secondary to chronic alcohol use; no evidence of bleeding - Platelets continue to be stable ~80 - Continue to hold heparin for possible HIT - Monitor liver functions Seizure disorder, chronic, stable. - Continue Dilantin 200mg BID - Seizures precautions in place. Hypertension, chronic, stable. - Continue home Metoprolol tartrate 50 mg BID. - Continue home Lisinopril 10 mg nightly. Depression with anxiety, chronic, stable. - Continue home Sertraline 200 mg daily. History of alcohol related liver disease with current elevation of transaminases. Improving. - PT/INR normal. - LFT's continue trending down - Hepatitis panel negative 09/2016. - HIV still pending PRN Medications - Acetaminophen as needed for mild pain/fever/headache - Bowel regimen as needed - Antiemetic as needed Disposition: Patient will likely be here at least through tomorrow depending on his continued medical stability and outpatient resource set up. At this time it seems patient has exhausted many of his resources as he has been in and out of alcoholic rehabilitation places. At this time social work is trying to find a place however it will most likely be very difficult as the patient has burned a lot of bridges. The patient states that he should have housing as this was supposed be set up through community actions. Social work is looking into this currently. GI Prophylaxis: Not indicated VTE Prophylaxis: Sub-Q Heparin (Unfractionated), SCDs VTE Mechanical Devices: Intermittant Pneumatic CD Resuscitation Status: CPR: Attempt Resuscitation Zain Jordan MD Feb 24, 2017 14:28
[2017-02-24 19:57] VITALS: BP 154/96; PULSE 69; RESP 20; O2SAT 98
--- NOTE | 2017-02-24 22:40 | NUR ---
Activity Pt calm and cooperative with care this shift. No acute issues. Occ'l c/o ankle along with his chronic back pain - managed without medications. Pt up to shower and with good appetite. Care continues.
[2017-02-25 05:47] VITALS: BP 124/77; PULSE 69; RESP 16; O2SAT 99
--- NOTE | 2017-02-25 05:50 | NUR ---
Activity Patient up independent in room. Reports chronic back pain, denies need for pain medications. Denies nausea this shift. Call light and tray table within reach. Will continue to monitor patient hourly.
[2017-02-25 08:05] VITALS: BP 122/82; PULSE 64; RESP 18; O2SAT 98
[2017-02-25] MEDS: Multivit-Miner-Folic Acid-Iron Tablet PO SCH (09:24)
[2017-02-25] MEDS: Phenytoin 100 mg ER Capsule PO SCH ×2 (09:24→20:35)
[2017-02-25] MEDS: THIAMINE IV SCH (11:06)
[2017-02-25] MEDS: DEXTROSE 5% IV SCH (11:06)
[2017-02-25 12:58] VITALS: BP 122/77; RESP 18; O2SAT 98
--- NOTE | 2017-02-25 13:33 | PCM.DIMED ---
Discharge Instructions Date of Service Feb 25, 2017 Dates of Hospitalization Feb 21, 2017 at 20:19 Discharge Diagnosis Discharge Diagnosis Alcohol abuse/withdrawl Diet Discharge Diet: No restrictions Activity Discharge Activity: No restrictions Patient Instructions Follow-up with PCP in: 2 weeks Dwayne Carrion MD Feb 25, 2017 13:33
--- NOTE | 2017-02-25 14:21 | PCM.DC.MED ---
Discharge Summary Date of Service Feb 25, 2017 Dates of Hospitalization Date of Hospital Admission Feb 21, 2017 at 20:19 Date of Discharge: Feb 26, 2017 Providers: Admitting Physician: Hiwot Washington MD Primary Care Physician: Silvana Sams MD Attending Physician: Zain Jordan MD Diagnosis at Time of Discharge Diagnosis at Time of Discharge Alcohol abuse/withdrawl Procedures XRay, CTs & MRIs CT BRAIN WITHOUT CONTRAST ([id number]) IMPRESSION: 1. No acute intracranial abnormality. 2. Chronic white matter small vessel ischemic changes and cerebral volume loss. Dictated by: Dion Begum M.D. on 02/21/2017 at 18:10 Approved by: Dion Begum M.D. on 02/21/2017 at 18:11 ECG 12 Lead Sinus tachycardia with heart rate of 107. With no significant ST changes. No significant change from prior EKG on 01/11/17. Brief History Dion Treviño is a 51 year old male with a history of alcohol dependence, seizure disorder, depression, and hypertension who presents with alcohol intoxication. He was brought to [facility] to be medically cleared before being checked in on 02/21/17. At the time of my exam the patient was unable to provide any history as he was not oriented to person, place, or time. He did mention that he was not any pain. Per the ED records the patient stated his last drink was early this morning. He stated he felt nauseous, disoriented, shaky, and somewhat off balanced on initial presentation. Patient is well-known to this facility and last admission was in early January for management of alcohol withdrawal. In the ED the patient was afebrile with a heart rate of 132, respiratory rate 24 , blood pressure 184/118, O2 sats ration of 97% on room air. Labs are pertinent for thrombocytopenia of 86, elevated aminotransferases, and breathalyzer of 0.245. CT head negative for acute intracranial process. Patient placed on C1 protocol and received banana bag in the ED. Patient admitted for management of alcohol withdrawal. Hospital Course Dion Treviño is a 51 year old male with a history of alcohol dependence, seizure disorder, depression, and hypertension who presents with alcohol intoxication. He was brought to [facility] to be medically cleared before being checked in on 02/21/17. CIWA started in the ED and patient admitted for additional management. Chronic alcohol dependence and acute alcohol intoxication, present on admission. Improving. - Continue CIWA protocol; - Valium was given per CIWA protocol. - IV thiamine 200mg daily, multivitamin daily Hypokalemia, present on admission, acute. Resolved. Thrombocytopenia, present on admission, active. Stable. - Likely secondary to chronic alcohol use; no evidence of bleeding - Platelets continue to be stable ~80 Seizure disorder, chronic, stable. - Continue Dilantin 200mg BID - Seizures precautions in place. Hypertension, chronic, stable. - Continue home Metoprolol tartrate 50 mg BID. - Continue home Lisinopril 10 mg nightly. Depression with anxiety, chronic, stable. - patient takes Sertraline 200 mg daily. History of alcohol related liver disease with current elevation of transaminases. Improving. - PT/INR normal. - LFT's continued trending down - Hepatitis panel negative 09/2016. PRN Medications - Acetaminophen as needed for mild pain/fever/headache - Bowel regimen as needed - Antiemetic as needed Disposition: At this time it seems patient has exhausted many of his resources as he has been in and out of alcoholic rehabilitation places. At this time social work is trying to find a place however it will most likely be very difficult as the patient has burned a lot of bridges. The patient states that he should have housing as this was supposed be set up through community actions. . Patient could not go home today as his disposition couldnt be accomplished. Exam Vital Signs (Last) Date Time Temp Pulse Resp B/P Pulse Ox O2 Delivery O2 Flow Rate FiO2 02/25/17 12:58 36.7 18 122/77 98 Room Air 02/25/17 08:05 64 02/21/17 23:29 1.00 Test 02/21/17 17:12 02/21/17 17:20 02/21/17 18:25 02/21/17 21:26 Hold Purple Top Tube Received (Received) Prothrombin Time 10.0sec (8.1-12.5) Prothromb Time International Ratio 0.94ratio Hold Blue Top Tube Received (Received) Vitamin B12 Level 695pg/mL (211-946) Hold Drift Top Tube Received (Received) Hold Cervantes Top Tube Received (Received) Hold Urine Received (Received) Urine Color Yellow (YELLOW) Urine Appearance Clear (CLEAR,HAZY) Urine pH 5.5 (5.0-8.0) Urine Specific [place] 1.020 (1.003-1.035) Urine Protein Tracemg/dL (NEG,TRACE) Urine Glucose (UA) Negativemg/dL (NEGATIVE) Urine Ketones Negativemg/dL (NEGATIVE) Urine Occult Blood Negative (NEGATIVE) Urine Nitrite Negative (NEGATIVE) Urine Bilirubin Negative (NEGATIVE) Urine Urobilinogen Normalmg/dL (NORMAL) Urine Leukocyte Esterase Negative (NEGATIVE) Urine RBC 0-2/hpf (0-2) Urine WBC 0-5/hpf (0-5) Urine Epithelial Cells Occasional/hpf (NONE-MOD) Urine Crystals None seen (NONE SEEN) Urine Bacteria Few/hpf (NONE-FEW) Urine Hyaline Casts 12/29/lpf (NONE) Urine Granular Casts None seen (NONE SEEN) Urine Waxy Casts None seen (NONE SEEN) Urine Red Blood Cell Casts None seen (NONE SEEN) Urine White Blood Cell Casts None seen (NONE SEEN) Urine Mucus Present (None Seen) Urine Trichomonas None seen (NONE SEEN) Urine Yeast None (NONE SEEN) Urinalysis Comment None Urine Culture Reflexed Not indicated Ammonia 39ug/dL (18-53) Test 02/22/17 02:55 02/22/17 09:33 02/24/17 07:13 Phosphorus Level 2.8mg/dL (2.5-4.9) Magnesium Level 2.2mg/dL (1.6-2.6) HIV (1&2) Ag and Ab, 4th Generation Non reactive (Non Reactive) White Blood Count 4.7th/mm3 (3.8-10.1) Red Blood Count 4.54mil/mm3 (4.40-5.80) Hemoglobin 14.2g/dL (13.8-17.2) Hematocrit 40.0% (41.0-50.0) Mean Corpuscular Volume 88.1fL (81-100) Mean Corpuscular Hemoglobin 31.3pg (27.0-35.0) Mean Corpuscular Hemoglobin Concent 35.5% (32.0-37.0) Red Cell Distribution Width 14.1% (12.3-15.4) Platelet Count 83bil/L (150-400) Neutrophils (%) (Auto) 63.3% (40-74) Lymphocytes (%) (Auto) 21.9% (14-46) Monocytes (%) (Auto) 11.8% (4-12) Eosinophils (%) (Auto) 1.5% (0-5) Basophils (%) (Auto) 0.4% (0-3) Sodium Level 134mEq/L (134-144) Potassium Level 4.1mEq/L (3.5-5.2) Chloride Level 98mEq/L (97-108) Carbon Dioxide Level 22mmol/L (18-29) Blood Urea Nitrogen 6mg/dL (6-24) Creatinine 0.55mg/dL (0.76-1.27) Estimat Glomerular Filtration Rate 165mL/min (>59) Glucose Level 106mg/dL (60-99) Calcium Level 9.3mg/dL (8.5-10.1) Total Bilirubin 0.6mg/dL (0.0-1.2) Aspartate Amino Transf (AST/SGOT) 78U/L (0-50) Alanine Aminotransferase (ALT/SGPT) 59U/L (0-44) Alkaline Phosphatase 135U/L (25-150) Total Protein 7.1g/dL (6.4-8.4) Albumin 4.3g/dL (3.4-5.0) Discharge Medications Discharge Medications Gabapentin (Gabapentin) 400 Mg Capsule 400 MG PO TID Prescribed by: HILDA CARRION MD Levetiracetam (Levetiracetam) 250 Mg Tablet 250 MG PO BID Prescribed by: HILDA CARRION MD Lisinopril (Lisinopril) 10 Mg Tablet 10 MG PO HS Prescribed by: HILDA CARRION MD Metoprolol Tartrate (Metoprolol Tartrate) 50 Mg Tablet 50 MG PO BID Prescribed by: HILDA CARRION MD Sertraline HCl (Sertraline) 100 Mg Tablet 200 MG PO DAILY Prescribed by: HILDA CARRION MD Thiamine Mononitrate (Vitamin B-1) 100 Mg Tablet 100 MG PO DAILY Prescribed by: HILDA CARRION MD Followup Plan Discharge Diet: No restrictions Discharge Activity: No restrictions Follow-up with PCP in: 2 weeks Time spent 35 mins Hilda Carrion MD Feb 25, 2017 14:21
--- NOTE | 2017-02-25 16:32 | NUR ---
Social Work: Continued Discharge Planning D: SW met with pt to see if he is willing to go back to [facility] or to Crisis [facility]. Pt agreeable. SW contacted Crisis Center and they don't have a bed available. SW to contact [facility] as they are willing to take pt back as last option (per notes in initial assessment). RN/MD updated. A: Pt likely to discharge to [facility] P: SW to contact [facility] to confirm they can take pt back. RN/MD updated. Pt agreeable. SALOME Luz
--- NOTE | 2017-02-25 17:30 | NUR ---
Patient's own CM Patient received a call from Ara Holden, his personal wrapper caser. Took a message and Ara stated that the patient will need to be DCd before 1330 tomorrow to [facility] for placement. aware. Left note for wrapper caser for tomorrow and will pass off in report to noc shift RN.
[2017-02-25 20:49] VITALS: BP 137/72; PULSE 71; RESP 18; O2SAT 97
--- NOTE | 2017-02-26 02:01 | NUR ---
Pain On initial assessment, patient stated that his lower back, ankles, and neck have pain at 6/10 on pain scale. Patient requested k pad to use for pain. Patient was alert and oriented, cooperative with care. Patient had slight shakiness/tremor of bilateral hands. VSS. Call light within reach. Care continues.
[2017-02-26 04:37] VITALS: BP 120/78; PULSE 74; RESP 18; O2SAT 98
--- NOTE | 2017-02-26 06:24 | NUR ---
PTS BELONGINGS WHEN THIS FLORIST HELPER ASKED WHEREABOUTS OF PT'S BILATERAL HEARING AIDES; HE STATED THAT HE DOES NOT HAVE THEM, HAS NEVER OWNED THEM.
[2017-02-26 08:27] VITALS: BP 112/75; PULSE 79; RESP 16; O2SAT 98
[2017-02-26] MEDS: Phenytoin 100 mg ER Capsule PO SCH (08:57)
[2017-02-26] MEDS: Multivit-Miner-Folic Acid-Iron Tablet PO SCH (09:03)
--- NOTE | 2017-02-26 11:55 | PCM.DC.MED ---
Discharge Summary Date of Service Feb 26, 2017 Dates of Hospitalization Date of Hospital Admission Feb 21, 2017 at 20:19 Date of Discharge: Feb 26, 2017 Providers: Admitting Physician: Hiwot Washington MD Primary Care Physician: Silvana Sams MD Attending Physician: Dwayne Carrion MD Diagnosis at Time of Discharge Diagnosis at Time of Discharge Alcohol abuse/withdrawl Procedures XRay, CTs & MRIs CT BRAIN WITHOUT CONTRAST ([id number]) IMPRESSION: 1. No acute intracranial abnormality. 2. Chronic white matter small vessel ischemic changes and cerebral volume loss. Dictated by: Dion Begum M.D. on 02/21/2017 at 18:10 Approved by: Dion Begum M.D. on 02/21/2017 at 18:11 ECG 12 Lead Sinus tachycardia with heart rate of 107. With no significant ST changes. No significant change from prior EKG on 01/11/17. Brief History Dion Treviño is a 51 year old male with a history of alcohol dependence, seizure disorder, depression, and hypertension who presents with alcohol intoxication. He was brought to [facility] to be medically cleared before being checked in on 02/21/17. At the time of my exam the patient was unable to provide any history as he was not oriented to person, place, or time. He did mention that he was not any pain. Per the ED records the patient stated his last drink was early this morning. He stated he felt nauseous, disoriented, shaky, and somewhat off balanced on initial presentation. Patient is well-known to this facility and last admission was in early January for management of alcohol withdrawal. In the ED the patient was afebrile with a heart rate of 132, respiratory rate 24 , blood pressure 184/118, O2 sats ration of 97% on room air. Labs are pertinent for thrombocytopenia of 86, elevated aminotransferases, and breathalyzer of 0.245. CT head negative for acute intracranial process. Patient placed on C1 protocol and received banana bag in the ED. Patient admitted for management of alcohol withdrawal. Hospital Course Dion Treviño is a 51 year old male with a history of alcohol dependence, seizure disorder, depression, and hypertension who presents with alcohol intoxication. He was brought to [facility] to be medically cleared before being checked in on 02/21/17. CIWA started in the ED and patient admitted for additional management. Chronic alcohol dependence and acute alcohol intoxication, present on admission. Resolved - Continue CIWA protocol; - Valium was given per CIWA protocol. - IV thiamine 200mg daily, multivitamin daily Hypokalemia, present on admission, acute. Resolved. Thrombocytopenia, present on admission, active. Stable. - Likely secondary to chronic alcohol use; no evidence of bleeding - Platelets continue to be stable ~80 Seizure disorder, chronic, stable. - Continue Dilantin 200mg BID - Seizures precautions in place. Hypertension, chronic, stable. - Continue home Metoprolol tartrate 50 mg BID. - Continue home Lisinopril 10 mg nightly. Depression with anxiety, chronic, stable. - patient takes Sertraline 200 mg daily. History of alcohol related liver disease with current elevation of transaminases. Improving. - PT/INR normal. - LFT's continued trending down - Hepatitis panel negative 09/2016. PRN Medications - Acetaminophen as needed for mild pain/fever/headache - Bowel regimen as needed - Antiemetic as needed Disposition: At this time it seems patient has exhausted many of his resources as he has been in and out of alcoholic rehabilitation places. At this time social work is trying to find a place however it will most likely be very difficult as the patient has burned a lot of bridges. The patient states that he should have housing as this was supposed be set up through community actions. He has meeting today with community actions. . Exam Vital Signs (Last) Date Time Temp Pulse Resp B/P Pulse Ox O2 Delivery O2 Flow Rate FiO2 02/26/17 08:27 36.4 79 16 112/75 98 Room Air 02/21/17 23:29 1.00 Test 02/21/17 17:12 02/21/17 17:20 02/21/17 18:25 02/21/17 21:26 Hold Purple Top Tube Received (Received) Prothrombin Time 10.0sec (8.1-12.5) Prothromb Time International Ratio 0.94ratio Hold Blue Top Tube Received (Received) Vitamin B12 Level 695pg/mL (211-946) Hold [place] Top Tube Received (Received) Hold Cervantes Top Tube Received (Received) Hold Urine Received (Received) Urine Color Yellow (YELLOW) Urine Appearance Clear (CLEAR,HAZY) Urine pH 5.5 (5.0-8.0) Urine Specific [place] 1.020 (1.003-1.035) Urine Protein Tracemg/dL (NEG,TRACE) Urine Glucose (UA) Negativemg/dL (NEGATIVE) Urine Ketones Negativemg/dL (NEGATIVE) Urine Occult Blood Negative (NEGATIVE) Urine Nitrite Negative (NEGATIVE) Urine Bilirubin Negative (NEGATIVE) Urine Urobilinogen Normalmg/dL (NORMAL) Urine Leukocyte Esterase Negative (NEGATIVE) Urine RBC 0-2/hpf (0-2) Urine WBC 0-5/hpf (0-5) Urine Epithelial Cells Occasional/hpf (NONE-MOD) Urine Crystals None seen (NONE SEEN) Urine Bacteria Few/hpf (NONE-FEW) Urine Hyaline Casts 5/20/lpf (NONE) Urine Granular Casts None seen (NONE SEEN) Urine Waxy Casts None seen (NONE SEEN) Urine Red Blood Cell Casts None seen (NONE SEEN) Urine White Blood Cell Casts None seen (NONE SEEN) Urine Mucus Present (None Seen) Urine Trichomonas None seen (NONE SEEN) Urine Yeast None (NONE SEEN) Urinalysis Comment None Urine Culture Reflexed Not indicated Ammonia 39ug/dL (18-53) Test 02/22/17 02:55 02/22/17 09:33 02/24/17 07:13 Phosphorus Level 2.8mg/dL (2.5-4.9) Magnesium Level 2.2mg/dL (1.6-2.6) HIV (1&2) Ag and Ab, 4th Generation Non reactive (Non Reactive) White Blood Count 4.7th/mm3 (3.8-10.1) Red Blood Count 4.54mil/mm3 (4.40-5.80) Hemoglobin 14.2g/dL (13.8-17.2) Hematocrit 40.0% (41.0-50.0) Mean Corpuscular Volume 88.1fL (81-100) Mean Corpuscular Hemoglobin 31.3pg (27.0-35.0) Mean Corpuscular Hemoglobin Concent 35.5% (32.0-37.0) Red Cell Distribution Width 14.1% (12.3-15.4) Platelet Count 83bil/L (150-400) Neutrophils (%) (Auto) 63.3% (40-74) Lymphocytes (%) (Auto) 21.9% (14-46) Monocytes (%) (Auto) 11.8% (4-12) Eosinophils (%) (Auto) 1.5% (0-5) Basophils (%) (Auto) 0.4% (0-3) Sodium Level 134mEq/L (134-144) Potassium Level 4.1mEq/L (3.5-5.2) Chloride Level 98mEq/L (97-108) Carbon Dioxide Level 22mmol/L (18-29) Blood Urea Nitrogen 6mg/dL (6-24) Creatinine 0.55mg/dL (0.76-1.27) Estimat Glomerular Filtration Rate 165mL/min (>59) Glucose Level 106mg/dL (60-99) Calcium Level 9.3mg/dL (8.5-10.1) Total Bilirubin 0.6mg/dL (0.0-1.2) Aspartate Amino Transf (AST/SGOT) 78U/L (0-50) Alanine Aminotransferase (ALT/SGPT) 59U/L (0-44) Alkaline Phosphatase 135U/L (25-150) Total Protein 7.1g/dL (6.4-8.4) Albumin 4.3g/dL (3.4-5.0) Discharge Medications Discharge Medications Gabapentin (Gabapentin) 400 Mg Capsule 400 MG PO TID (Reported) Levetiracetam (Levetiracetam) 250 Mg Tablet 250 MG PO BID (Reported) Lisinopril (Lisinopril) 10 Mg Tablet 10 MG PO HS Prescribed by: GOVIND ESCUDERO DO Metoprolol Tartrate (Metoprolol Tartrate) 50 Mg Tablet 50 MG PO BID (Reported) Sertraline HCl (Sertraline) 100 Mg Tablet 200 MG PO DAILY (Reported) Thiamine Mononitrate (Vitamin B-1) 100 Mg Tablet 100 MG PO DAILY (Reported) Followup Plan Discharge Diet: No restrictions Discharge Activity: No restrictions Follow-up with PCP in: 2 weeks Time spent 35 mins Dwayne Carrion MD Feb 26, 2017 11:55
--- NOTE | 2017-02-26 12:08 | NUR ---
Social Work- Discharge/ Multi-Disciplinary Rounds Data: EMR reviewed. Pt is on day 5 of hospitalization for substance abuse. Per multi-disciplinary rounds, pt is medically ready for discharge. Discharge orders are active. Other than housing, there are no discharge needs identified in rounds. MAHIN spoke with Ara Holden, pt's CM at [facility], regarding pt's discharge plan. Ara states that pt needs to discharge by 1330 so that he can attend an important meeting at [facility], not return to [facility]. Ara confirmed that she will be picking pt up from the hospital at 1300 to take him to the Social Security meeting. MAHIN placed call to [facility] regarding pt's return, [facility] is unable to accept pt at this time secondary to non compliance and no beds available today. MAHIN received T/C from Carmelo at [facility], MAHIN returned call this morning. Carmelo states that he is working on housing for pt and the plan that they had fell through, unfortunately. Carmelo continues to work with pt on housing but there is nothing available at this time. Carmelo requested that pt follow up at [facility] so that Carmelo could assist pt in obtaining a cell phone and they could be in more regular communication. MAHIN informed pt of this at bedside. MAHIN spoke with pt at bedside regarding discharge plan. MAHIN informed pt that [facility] is not able to accept pt back at discharge. MAHIN updated pt that Carmelo continues to work on housing but there is nothing available at this time. MAHIN discussed [facility] with pt, pt is familiar with [facility]. MAHIN encouraged pt to stop by there often to check up on bed availability. MAHIN discussed pt staying at a motel. Per prior notes pt stated that he would have the finances for this. During this conversation, pt states that he does not have the finances for a motel. Pt states that he has no friends or family in the area that would be able to assist him with housing. Pt to discharge to homelessness with [facility] SUSAN Bullock to pick pt up from the hospital. Assessment: Pt who is homeless at this time. Plan: Pt to discharge to homelessness with [facility] SUSAN Bullock to pick pt up from the hospital. SALOME Lechuga Addendum: 02/26/17 at 1304 by [facility] T/C to [facility] regarding [facility]. Pt spoke with kellyer on the phone and [facility] determined that pt is not appropriate for their services at this time. Pt called [facility] and LEI MAKER spoke with Merry at [facility] (after receiving verbal JACKIE from pt at bedside). Merry states that [facility] is for clean and sober living and pt's history of relapses makes him a challenging placement. Merry requested that pt's CM from [facility], Ara Holden, call Merry regarding pt. Pt agreeable to this and Ara provided with Merry's phone number. SALOME Lechuga
[2017-02-26] MEDS ORDERED: LEVE250T4 PO (13:00)
[2017-02-26] MEDS ORDERED: THIA100T64 PO (13:00)
[2017-02-26] MEDS ORDERED: GABA-504 PO (13:00)
[2017-02-26] MEDS ORDERED: SERT100T9 PO (13:00)
[2017-02-26] MEDS ORDERED: METO50TA3 PO (13:00)
[2017-02-26] MEDS ORDERED: LISI10TA PO (13:00)
--- NOTE | 2017-02-26 14:15 | NUR ---
Discharge note- Complained of mild abd. discomfort this am relieved with Tylenol. No c/o N&V. Tolerating diet and fluids well. Discharged with business case analyst and personal belongings.
== END 2017-02-26 13:25 | disposition home or self-care (01) | DRG 897 ==
LOC: SED 16:16 → PCC 20:19 → OSC 02-23 17:27
PROVIDERS: ADMIT Specialist; ATTEND Specialist
DX: F10.231 Alcohol dependence with withdrawal delirium (principal); D69.6 Thrombocytopenia, unspecified; I10 Essential (primary) hypertension; E87.6 Hypokalemia; F41.8 Other specified anxiety disorders; G40.909 Epilepsy, unspecified, not intractable, without status epilepticus

== ENCOUNTER 2017-02-27 17:34 | Emergency (ER) | payer OTHER ==
[~2017-02-27] VITALS: Ht 167.6 cm; Wt 80.9 kg
[2017-02-27 17:52] VITALS: BP 146/64; PULSE 73; RESP 13; O2SAT 96
--- NOTE | 2017-02-27 18:10 | ED.REPORT ---
HPI-General Illness Date of Service Feb 27, 2017 ED Provider: Brenton Smith MD A 52 year old male with a history of alcohol abuse, depression, withdrawal seizures, hypertension, liver cirrhosis and frequent ED visits is brought to the ED via EMS due to a possible seizure. The pt reportedly experienced a witnessed seizure today. He was shaking and speaking to the witness during the event. Per medics, he was responsive throughout and not in a post ictal state when they arrived. In the ED, the pt is complaining of dizziness, lightheadedness, chest pain and palpitations. The pt was discharged from the hospital yesterday, ( in 02/21-) and states that he has not consumed alcohol since that point. He has been staying at [facility]. Nursing Notes Stated Complaint: DETOX Chief Complaint: Seizure Nursing Notes Reviewed: Yes Allergies: Coded Allergies: caffeine (Verified Adverse Reaction, Mild, raises my heart rate too high, 02/21/17) Scheduled Gabapentin (Gabapentin) 400 Mg Capsule 400 MG PO TID Levetiracetam (Levetiracetam) 250 Mg Tablet 250 MG PO BID Lisinopril (Lisinopril) 10 Mg Tablet 10 MG PO HS Metoprolol Tartrate (Metoprolol Tartrate) 50 Mg Tablet 50 MG PO BID Sertraline HCl (Sertraline) 100 Mg Tablet 200 MG PO DAILY Thiamine Mononitrate (Vitamin B-1) 100 Mg Tablet 100 MG PO DAILY General Time Seen by MD: 18:10 Chief Complaint Other (Possible seizure) Hx Obtained From: Patient, EMS Arrived By: Ambulance Sudden in Onset?: Yes Onset Occurred: 1 - 4 hours ago Recent Healthcare: Recent doctor visit, Recent hospitalization Similar Sx Previous: Yes Past Medical History Past Medical History Alcoholism Depression Seizures secondary to withdrawal HTN- taking Metoprolol PTSD Chronic dental infection Carpal tunnel syndrome Low back pain 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 Alcohol Use: >5 per day Drug Use: THC Other Social History: Frequent ED visitor, Homeless Occupation Homeless, 01/01/2017 Ambulatory Status Independent Review of Systems Full Review of Systems Respiratory: Denies: Non-productive cough, Shortness of breath Cardiovascular: Reports: Chest pain, Palpitations Musculoskeletal: Denies: Neck pain Skin: Denies Rash Neurologic: Reports: Dizziness, Lightheaded, Seizure, Shaking Complete sys rev & neg: except as marked. Physical Exam Vital Signs Vital Signs Date Time Temp Pulse Resp B/P Pulse Ox O2 Delivery O2 Flow Rate FiO2 02/27/17 17:52 37.0 73 13 146/64 96 Room Air Initial VS: Reviewed General/Constitutional: Awake, Alert Head / Eyes: Atraumatic, Normocephalic, PERRL, EOMI ENT: Atraumatic, Airway patent, Mucous membranes moist Neck: Atraumatic, Supple, Full range of motion Respiratory / Chest: Atraumatic, Breath sounds NL, Breath sounds = bilat, No respiratory distress Cardiovascular: Heart rate NL, Regular rhythm, Heart sounds NL, No gallop, No murmurs, No rubs Abdomen: Atraumatic, Soft, Non-tender, BS normoactive Back: Atraumatic, Full range of motion Upper Extremities Upper Extremity / MS: Atraumatic, Full range of motion Lower Extremity / Pelvis / MS: Atraumatic, Full range of motion Skin: Atraumatic, Color NL, No rash, Warm, Dry Neurologic: Oriented X3, Speech NL, No motor deficits, No sensory deficits Psychiatric: Affect NL, Mood NL Interpretation & Diagnostics Lab Results Interpretation Result Diagram: 02/27/17 1811 02/27/17 1811 Test 02/27/17 18:11 02/27/17 20:04 White Blood Count 5.4th/mm3 (3.8-10.1) Red Blood Count 3.99mil/mm3 (4.40-5.80) Hemoglobin 12.5g/dL (13.8-17.2) Hematocrit 35.9% (41.0-50.0) Mean Corpuscular Volume 90.0fL (81-100) Mean Corpuscular Hemoglobin 31.3pg (27.0-35.0) Mean Corpuscular Hemoglobin Concent 34.8% (32.0-37.0) Red Cell Distribution Width 14.4% (12.3-15.4) Platelet Count 203bil/L (150-400) Neutrophils (%) (Auto) 57.1% (40-74) Lymphocytes (%) (Auto) 22.2% (14-46) Monocytes (%) (Auto) 17.5% (4-12) Eosinophils (%) (Auto) 1.3% (0-5) Basophils (%) (Auto) 0.4% (0-3) Sodium Level 134mEq/L (134-144) Potassium Level 4.8mEq/L (3.5-5.2) Chloride Level 93mEq/L (97-108) Carbon Dioxide Level 22mmol/L (18-29) Blood Urea Nitrogen 10mg/dL (6-24) Creatinine 0.58mg/dL (0.76-1.27) Estimat Glomerular Filtration Rate 155mL/min (>59) Glucose Level 108mg/dL (60-99) Calcium Level 8.0mg/dL (8.5-10.1) Total Bilirubin 0.2mg/dL (0.0-1.2) Aspartate Amino Transf (AST/SGOT) 94U/L (0-50) Alanine Aminotransferase (ALT/SGPT) 109U/L (0-44) Alkaline Phosphatase 129U/L (25-150) Total Protein 7.4g/dL (6.4-8.4) Albumin 4.3g/dL (3.4-5.0) Alcohols < 10mg/dL (0-10) Hold Urine Received (Received) Lab Results Interpretation: urine drug screen positive for benzodiazepines and barbiturates Re-Eval/Medical Decision Med Decision/Clinical Course 52-year-old male brought in by EMS with concern for a possible seizure. Given that he was responsive throughout and did not have a postictal state this seems unlikely. In the department he appeared well examined labs are otherwise reassuring. Patient subsequently eloped. Given that he just completed a 5 day inpatient stay or alcohol withdrawal I do not believe that he is experiencing major withdrawal symptoms at present. Source of Hx: Old records Time of Eval: 20:07 Re-Evaluation/Progress Note: Pt not in room when recheck is attempted. Counseled Regarding: Diagnosis, Lab results, When/why to return to ED Discharge & Departure Primary Impression: Acute situational disturbance Disposition: Home Discharge Condition All VS Reviewed: Yes Condition: Stable Referrals: Silvana Sams MD (PCP) Scribe Attestation Portions of this note were transcribed by Deven Valles. I, Dr. Smith personally performed the history, physical exam and medical decision-making; I reviewed and confirmed the accuracy of the information in the transcribed note. Signed by: Jerry Cheung, 02/27/2017 and 2122. copies to: Silvana Sams MD, Donald L MD Feb 27, 2017 18:10 DEVEN VALLES Feb 27, 2017 18:35
[2017-02-27 18:15] LABS: BASOPHILS % (AUTO) 0.4 % (0-3); EOSINOPHILS % (AUTO) 1.3 % (0-5); MONOCYTES % (AUTO) 17.5 % (4-12); Mean Corpuscular Hemoglobin 31.3 pg (27.0-35.0); NEUTROPHILS % (AUTO) 57.1 % (40-74); Platelet Count 203 bil/L (150-400)
== END 2017-02-27 20:09 | disposition home or self-care (01) ==
LOC: SED 17:34 → EDBD 17:34 → EDUNIT# 17:34 → SED 20:09
DX: F43.0 Acute stress reaction (principal); I10 Essential (primary) hypertension; F32.9 Major depressive disorder, single episode, unspecified; Z59.0 Homelessness; Z91.018 Allergy to other foods
CPT/HCPCS: 36415; 80053; 81002; 85025; 99284; G0480

== ENCOUNTER 2017-03-14 09:32 | Emergency (ER) | payer OTHER ==
[~2017-03-14] VITALS: Ht 167.6 cm; Wt 79.0 kg
[2017-03-14 09:44] VITALS: BP 129/70; PULSE 75; RESP 10; O2SAT 100
[2017-03-14 10:02] LABS: BASOPHILS % (AUTO) 0.6 % (0-3); EOSINOPHILS % (AUTO) 1.8 % (0-5); MONOCYTES % (AUTO) 7.3 % (4-12); Mean Corpuscular Hemoglobin 31.1 pg (27.0-35.0); Mean Corpuscular Volume 89.7 fL (81-100); NEUTROPHILS % (AUTO) 39.4 % (40-74); Platelet Count 352 bil/L (150-400)
--- NOTE | 2017-03-14 10:30 | ED.REPORT ---
HPI-Chest Pain 40 and Over Date of Service Mar 14, 2017 ED Provider: Sarah Cool MD Patient is a 52 year old male with a hx of seizures, EtOH abuse, HTN, and frequent ED visits who presents to the ED via EMS complaining of sharp L sided chest pain onset 3 days ago but worse today that is worse with deep inspiration. He also complains of central, dull, intermittent chest pain. Associated symptoms include headache and mild exertional SOB. He denies fever, chills, nausea vomiting, urinary changes, swelling, diaphoresis, or any other symptoms. Patient is a difficult historian. Patient reports his last drink was this morning. He takes Ibuprofen for his pain despite his alcohol induced liver Cirrhosis. issu He is supposed to see his behavioral health case manager today. He would like help with detox. Patient was discharged a few weeks ago after a 5 day stay for substance abuse Nursing Notes Stated Complaint: CHEST PAIN/ANXIETY Chief Complaint: Chest Pain Nursing Notes Reviewed: Yes Allergies: Coded Allergies: caffeine (Verified Adverse Reaction, Mild, raises my heart rate too high, 03/14/17) Scheduled Gabapentin (Gabapentin) 400 Mg Capsule 400 MG PO TID Levetiracetam (Levetiracetam) 250 Mg Tablet 250 MG PO BID Lisinopril (Lisinopril) 10 Mg Tablet 10 MG PO HS Metoprolol Tartrate (Metoprolol Tartrate) 50 Mg Tablet 50 MG PO BID Sertraline HCl (Sertraline) 100 Mg Tablet 200 MG PO DAILY Thiamine Mononitrate (Vitamin B-1) 100 Mg Tablet 100 MG PO DAILY General Time Seen by MD: 10:01 Chief Complaint Chest pain Hx Obtained From: Patient Arrived By: Ambulance Sudden in Onset?: Yes Onset Occurred: 3 days ago Symptom Duration: Since onset Recent Healthcare: Recent doctor visit, Recent hospitalization Similar Sx Previous: Yes Risk Factors )( CAD Risk Stratification HypertensionNo Diabetes mellitus, No Hyperlipidemia, No Known CAD Risk factors reviewed )( TAD Risk Stratification HypertensionNo , No Turners Syndrome Risk factors reviewed )( PE Risk Stratification No , No , No Previous DVT, No Previous PE Risk factors reviewed Past Medical History Past Medical History Alcoholism Depression Seizures secondary to withdrawal HTN- taking Metoprolol PTSD Chronic dental infection Carpal tunnel syndrome Low back pain 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 Alcohol Use: >5 per day Drug Use: THC Other Social History: Frequent ED visitor, Homeless Occupation Homeless, 01/01/2017 Ambulatory Status Independent Review of Systems Constitutional: Denies: Chills, Fever Respiratory: Reports: Shortness of breath Cardiovascular: Reports: Chest pain GI: Denies: Nausea, Vomiting Musculoskeletal: Denies: Extremity swelling Skin: Denies Diaphoresis Neurologic: Reports: Headache Complete sys rev & neg: except as marked. Female: Denies: Dysuria Physical Exam Initial Vital Signs Vital Signs (First) Date Time Temp Pulse Resp B/P Pulse Ox O2 Delivery O2 Flow Rate FiO2 03/14/17 09:44 36.5 75 10 129/70 100 Room Air Initial VS: Reviewed, Vital signs abnormal Head / Eyes: Atraumatic, Normocephalic Neck: Full range of motion Skin: Warm, Dry Neurologic: Alert, Oriented, Nonfocal Psychiatric: Mood/affect normal, Behavior normal, Normal thought content General/Constitutional: Awake, Alert, No acute distress Respiratory / Chest: Atraumatic, Breath sounds NL, Breath sounds = bilat, No respiratory distress mild pain with palpation around L rib 8 Cardiovascular: Heart rate NL, Regular rhythm, Heart sounds NL Abdomen: Atraumatic, Soft, Non-tender Interpretation & Diagnostics Lab Results Interpretation Result Diagram: 03/14/17 0938 03/14/17 0938 Test 03/14/17 09:38 White Blood Count 3.4th/mm3 (3.8-10.1) Red Blood Count 4.57mil/mm3 (4.40-5.80) Hemoglobin 14.2g/dL (13.8-17.2) Hematocrit 41.0% (41.0-50.0) Mean Corpuscular Volume 89.7fL (81-100) Mean Corpuscular Hemoglobin 31.1pg (27.0-35.0) Mean Corpuscular Hemoglobin Concent 34.6% (32.0-37.0) Red Cell Distribution Width 14.2% (12.3-15.4) Platelet Count 352bil/L (150-400) Neutrophils (%) (Auto) 39.4% (40-74) Lymphocytes (%) (Auto) 50.6% (14-46) Monocytes (%) (Auto) 7.3% (4-12) Eosinophils (%) (Auto) 1.8% (0-5) Basophils (%) (Auto) 0.6% (0-3) Sodium Level 141mEq/L (134-144) Potassium Level 4.0mEq/L (3.5-5.2) Chloride Level 99mEq/L (97-108) Carbon Dioxide Level 23mmol/L (18-29) Blood Urea Nitrogen 3mg/dL (6-24) Creatinine 0.50mg/dL (0.76-1.27) Estimat Glomerular Filtration Rate 184mL/min (>59) Glucose Level 112mg/dL (60-99) Calcium Level 8.9mg/dL (8.5-10.1) Magnesium Level 1.9mg/dL (1.6-2.6) Total Bilirubin 0.3mg/dL (0.0-1.2) Aspartate Amino Transf (AST/SGOT) 37U/L (0-50) Alanine Aminotransferase (ALT/SGPT) 40U/L (0-44) Alkaline Phosphatase 105U/L (25-150) Troponin T < 0.010ug/L (0.0-0.011) Total Protein 8.0g/dL (6.4-8.4) Albumin 4.5g/dL (3.4-5.0) Alcohols 316mg/dL (0-10) ECG Interpretation ECG Interpretation: Sinus rate 75 No ischemia Time: 09:54 Interpreted by: ED physician X-Ray Chest Interpretation Chest Xray Interpretation: IMPRESSION: No acute cardiopulmonary disease. Dictated by: Jefry Gastelum M.D. on 03/14/2017 at 10:40 Approved by: Jefry Gastelum M.D. on 03/14/2017 at 10:40 View: Portable, 1 view Interpretation / Wet Read by: Interpret - Radiologist Re-Eval/Medical Decision Time of Eval: 12:00 Re-Evaluation/Progress Note: Patient needed to get to his counselor appointment and left without discharge paperwork. Counseled Regarding: Diagnosis, Lab results, Need for follow-up, When/why to return to ED Discharge & Departure Departure Notes Marty chose to leave the department prior to instructions being given. His IV was removed. He was informed of labs. He stated he wanted to get to his apt at [facility]. He walked out without difficulty or impairment and was allowed to go. Primary Impression: Alcohol intoxication Additional Impressions: ETOH abuse Non-cardiac chest pain Disposition: Home Discharge Condition All VS Reviewed: Yes Condition: Stable Patient Instructions: Chest Pain (ED) Additional Instructions: Thank you for coming to the emergency department. We did not find a dangerous cause for your symptoms at this time. You are choosing to leave before we can attempt to find resources for alcohol detox for you. Follow up with your primary doctor within the next week. Return to the emergency department for new or worsening symptoms. Referrals: Silvana Sams MD (PCP) Scribe Attestation Portions of this note were transcribed by Clarice Kidd. I, Dr. Cool, personally performed the history, physical exam, and medical decision making; I reviewed and confirmed the accuracy of the information in the transcribed note. Signed by: Jerry Tyler, 03/14/17 copies to: Silvana Sams MD, Shawna L MD Mar 14, 2017 10:30 CLARICE KIDD Mar 14, 2017 10:45
[2017-03-14 10:34] LABS: Magnesium 1.9 mg/dL (1.6-2.6)
[2017-03-14] MEDS ORDERED: Ketorolac 15 mg/mL Inj IVPUSH ONE (10:35)
[2017-03-14 10:49] LABS: TROPONIN T < 0.010 ug/L (0.0-0.011)
--- NOTE | 2017-03-14 11:41 | DRSVH ---
PROCEDURE: X-RAY CHEST ONE VIEW, PORTABLE ([id number]) INDICATIONS: CHEST PAIN TECHNIQUE: One view of the chest was acquired. COMPARISON: [facility], CR, XR CHEST 1VW (PORTABLE), 08/20/2016, 19:06. FINDINGS: Surgical changes and devices: None. Lungs and pleura: No pleural effusions or pneumothorax. Lungs are clear. Mediastinum: Mediastinal contours appear normal. Heart size is normal. Bones and chest wall: No suspicious bony lesions. Overlying soft tissues appear unremarkable. IMPRESSION: No acute cardiopulmonary disease. Dictated by: Jefry Gastelum M.D. on 03/14/2017 at 10:40 Approved by: Jefry Gastelum M.D. on 03/14/2017 at 10:40
[2017-03-14 12:00] VITALS: BP 134/63; PULSE 84; RESP 17; O2SAT 98
[2017-03-15] MEDS ORDERED: PROP60CA2 PO (11:01)
== END 2017-03-14 12:01 ==
LOC: SED 09:32 → EDUNIT# 09:32 → EDBD 09:32 → SED 12:01
DX: F10.129 Alcohol abuse with intoxication, unspecified (principal); R07.89 Other chest pain; I10 Essential (primary) hypertension; F43.10 Post-traumatic stress disorder, unspecified; Z87.891 Personal history of nicotine dependence; Z79.899 Other long term (current) drug therapy
CPT/HCPCS: 36415; 71010; 80053; 83735; 84484; 85025; 93005; 96374; 99285; G0480; J1885

== ENCOUNTER 2017-03-14 16:51 | Emergency (ER) | payer OTHER ==
[2017-03-14 16:55] VITALS: BP 108/71; PULSE 80; RESP 20; O2SAT 98
--- NOTE | 2017-03-14 17:44 | ED.REPORT ---
HPI-Medical Clearance Date of Service Mar 14, 2017 ED Provider: Jeronimo Perez PA-C Dion is a 52-year-old male with history of seizure disorder, homelessness, alcohol abuse, hypertension presenting to the emergency department seeking placement crisis rehabilitation for alcohol detox. Patient reports he spoken to crisis rehabilitation and they have a bed for him, he needs to be medically cleared. He seen earlier in this department for complaint of chest pain 3 days aggravated by deep inspiration. Associated with headache, exertional SOB. Patient received a thorough workup at that time including ECG labs including troponin, chest x-ray and a dangerous cause for his chest pain was not detected. Patient reports drinking 8-10 high alcohol content beers per day, with his last drink earlier this morning at this time he complains of anxiety, tremulousness, swelling, continued chest pain, continue exertional dyspnea, tooth pain. Patient denies suicidality, thoughts of harming others. Patient reports that [facility], and his medications are there. Nursing Notes Stated Complaint: DETOX Chief Complaint: Substance Abuse Nursing Notes Reviewed: Yes Allergies: Coded Allergies: caffeine (Verified Adverse Reaction, Mild, raises my heart rate too high, 03/14/17) Scheduled Gabapentin (Gabapentin) 400 Mg Capsule 400 MG PO TID Levetiracetam (Levetiracetam) 250 Mg Tablet 250 MG PO BID Lisinopril (Lisinopril) 10 Mg Tablet 10 MG PO HS Metoprolol Tartrate (Metoprolol Tartrate) 50 Mg Tablet 50 MG PO BID Sertraline HCl (Sertraline) 100 Mg Tablet 200 MG PO DAILY Thiamine Mononitrate (Vitamin B-1) 100 Mg Tablet 100 MG PO DAILY General Time Seen by Provider: 17:30 Chief Complaint : Other (clearance for crisis rehabilitation) Past Medical History Past Medical History Alcoholism Depression Seizures secondary to withdrawal HTN- taking Metoprolol PTSD Chronic dental infection Carpal tunnel syndrome Low back pain 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 Alcohol Use: >5 per day Drug Use: THC Other Social History: Frequent ED visitor, Homeless Occupation Homeless, 01/01/2017 Ambulatory Status Independent Review of Systems General: Denies fever, chills, malaise. HEENT: Denies congestion, sore throat. Admits headache Respiratory: Admits exertional dyspnea. Denies cough, wheeze. Cardiovascular: Admits chest pain. Gastrointestinal: Denies vomiting, diarrhea, admits mild abdominal pain. Genitourinary: Denies frequency, urgency, dysuria, hematuria. Otherwise as noted in HPI. Physical Exam General: Well appearing, well developed, well nourished, no acute distress. Poorly groomed, smells of alcohol Head: Atraumatic, normocephalic. No mastoid tenderness. Eyes: No scleral icterus or injection. No discharge. PERRL. Vision grossly intact. Ears: Pinna and tragus nontender with manipulation. External auditory canals obstruct with cerumen. Hearing grossly intact. Nose: Symmetrical, nares patent without discharge. No frontal or maxillary sinus tenderness. Mouth/pharynx: Poor dentition, numerous caries. No redness, swelling, discharge or fluctuance noted. Mucus membranes moist. Tonsils 2+ and symmetrical, uvula midline. Pharynx noninjected, no cobblestoning or discharge. Voice clear. Neck: No tenderness or lymphadenopathy. Trachea midline. Respiratory: Regular rate and rhythm. Breath sounds present, clear to auscultation and equal bilaterally. No respiratory distress. No increased work of breathing, speaks in complete sentences. Cardiovascular: Regular rate and rhythm, without murmur, gallop or rub. No pedal edema. Gastrointestinal: Abdomen flat and non-tender without guarding or rebound. Bowel sounds normoactive. Skin: Warm and dry. Neurological: Grossly nonfocal. Cranial nerves: Vision grossly intact, PERRL, EOMI. Facial motion symmetrical, sensation to light touch over forehead, maxilla and mandible present and equal B /L. Voice clear and fluent, no drooling/pooling of saliva, uvula rises midline. Psychological: Alert and oriented. Speech appropriate, linear and logical. Behavior appropriate. Initial Vital Signs Vital Signs (First) Date Time Temp Pulse Resp B/P Pulse Ox O2 Delivery O2 Flow Rate FiO2 03/14/17 16:55 36.8 80 20 108/71 98 Room Air Normal Interpretation & Diagnostics Lab Results Interpretation Test 03/14/17 18:09 Hold Urine Received (Received) Re-Eval/Medical Decision Med Decision/Clinical Course 52-year-old male presents seeking clearance for treatment crisis respite for alcohol detox. He reports drinking 8-10 high alcohol content beers per day, with his last drink this morning. Seen in this department earlier today for chest pain, aggravate by deep breaths, exertional dyspnea. Received thorough workup and no immediately dangerous etiology was determined. Reports a history of seizure disorder treated with Dilantin. He reports that he no longer has his medications because [facility] and they are [facility]. Physical examination is benign. Vital signs are normal. Patient departed prior to being seen by social work. While I do suspect alcohol intoxication, the patient is able to walk, he is oriented and able to carry on a conversation. I believe he is competent to make this decision for himself. I do not believe he is a threat to himself or others. Discharge & Departure Departure Notes Patient departed after physical examination, primary being assessed by social work. I believe he is medically stable. I believe he is competent to make this decision, not a threat to himself or others. He is allowed to leave. Impression: Primary Impression: Alcohol abuse Disposition: AGAINST MEDICAL ADVICE Referrals: Silvana Sams MD (PCP) EDSupervising Provider for APC: Brenton Smith MD, Seth PA-C Mar 14, 2017 17:44
[2017-03-14] MEDS ORDERED: LORazepam 2 mg Tablet PO ONE (18:25)
[2017-03-15] MEDS ORDERED: PROP60CA2 PO (11:01)
== END 2017-03-14 18:37 | disposition left against medical advice (07) ==
LOC: SED 16:51
DX: F10.10 Alcohol abuse, uncomplicated (principal); Z53.29 Procedure and treatment not carried out because of patient's decision for other reasons; G40.909 Epilepsy, unspecified, not intractable, without status epilepticus; I10 Essential (primary) hypertension; Z59.0 Homelessness; K70.30 Alcoholic cirrhosis of liver without ascites; F43.10 Post-traumatic stress disorder, unspecified; Z87.891 Personal history of nicotine dependence

== ENCOUNTER 2017-03-14 21:54 | Inpatient (IN) | payer OTHER ==
[~2017-03-14] VITALS: Ht 167.6 cm; Wt 78.0 kg
[2017-03-14 22:17] VITALS: BP 129/80; PULSE 86; RESP 16; O2SAT 99
[2017-03-15] VITALS (8 sets, daily range): BP systolic 138–166; BP diastolic 79–90; PULSE 72–95; RESP 16–18; O2SAT 95–99
--- NOTE | 2017-03-15 00:29 | ED.REPORT ---
HPI-Overdose/Alcohol Toxicity Date of Service Mar 15, 2017 ED Provider: Perry Sommer MD A 52 year old male with a history of alcoholism with withdrawal seizures, anxiety, depression, hypertension and liver cirrhosis presents to the ED complaining of chest pain and requesting detox from alcohol. The pt was seen in the ED earlier today but left AMA. He is now complaining of left-sided chest pain that is worsened by breathing deeply. He denies recent fall or trauma. The pt recently lost his housing at [facility] due to alcohol use. He has been drinking for five days after being sober for 1.5 weeks. Nursing Notes Stated Complaint: CHEST PAIN Chief Complaint: Substance Abuse Nursing Notes Reviewed: Yes Allergies: Coded Allergies: caffeine (Verified Adverse Reaction, Mild, raises my heart rate too high, 03/14/17) Scheduled Gabapentin (Gabapentin) 400 Mg Capsule 400 MG PO TID Levetiracetam (Levetiracetam) 250 Mg Tablet 250 MG PO BID Lisinopril (Lisinopril) 10 Mg Tablet 10 MG PO HS Metoprolol Tartrate (Metoprolol Tartrate) 50 Mg Tablet 50 MG PO BID Sertraline HCl (Sertraline) 100 Mg Tablet 200 MG PO DAILY Thiamine Mononitrate (Vitamin B-1) 100 Mg Tablet 100 MG PO DAILY General Time Seen by Provider: 00:22 Chief Complaint Other (Chest pain) Hx Obtained From: Patient Arrived By: Walk-in Symptom Duration: Since onset Recent Healthcare: Recent doctor visit, Recent hospitalization Similar Sx Previous: Yes Past Medical History Past Medical History Alcoholism Depression Anxiety Seizures secondary to withdrawal HTN- taking Metoprolol PTSD Chronic dental infection Carpal tunnel syndrome Low back pain 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 Alcohol Use: >5 per day Drug Use: THC Other Social History: Frequent ED visitor, Homeless Occupation Homeless, 01/01/2017 Ambulatory Status Independent Review of Systems Respiratory: Denies: Non-productive cough, Shortness of breath Cardiovascular: Reports: Chest pain GI: Denies: Abdominal pain Musculoskeletal: Denies: Back pain, Neck pain Skin: Denies Rash Complete sys rev & neg: except as marked. Physical Exam Initial Vital Signs Vital Signs (First) Date Time Temp Pulse Resp B/P Pulse Ox O2 Delivery O2 Flow Rate FiO2 8/3/17 22:17 36.4 86 16 129/80 99 Room Air Initial VS: Vital signs normal Respiratory / Chest: Breath sounds NL, Breath sounds = bilat, No respiratory distress left chest wall tenderness guarding with breathing Cardiovascular: Heart rate NL, Regular rhythm, Heart sounds NL Abdomen: Atraumatic, Soft, Non-tender Neurologic: Oriented X3, Speech NL, No motor deficits, No sensory deficits Psychiatric: Affect NL, Mood NL Head / Eyes: Atraumatic, Normocephalic, PERRL, EOMI ENT: Atraumatic, Airway patent, Mucous membranes moist Neck: Atraumatic, Supple, Full range of motion Back: Atraumatic, Full range of motion Skin: Atraumatic, Color NL, No rash, Warm, Dry Upper Extremity / MS: Atraumatic, Full range of motion Lower Extremity / Pelvis / MS: Atraumatic, Full range of motion Interpretation & Diagnostics Lab Results Interpretation Result Diagram: 03/15/17 0106 03/15/17 0106 Test 03/15/17 01:06 03/15/17 01:07 White Blood Count 5.2th/mm3 (3.8-10.1) Red Blood Count 4.53mil/mm3 (4.40-5.80) Hemoglobin 14.2g/dL (13.8-17.2) Hematocrit 39.4% (41.0-50.0) Mean Corpuscular Volume 87.0fL (81-100) Mean Corpuscular Hemoglobin 31.3pg (27.0-35.0) Mean Corpuscular Hemoglobin Concent 36.0% (32.0-37.0) Red Cell Distribution Width 14.4% (12.3-15.4) Platelet Count 361bil/L (150-400) Neutrophils (%) (Auto) 51.3% (40-74) Lymphocytes (%) (Auto) 39.3% (14-46) Monocytes (%) (Auto) 7.9% (4-12) Eosinophils (%) (Auto) 1.1% (0-5) Basophils (%) (Auto) 0.4% (0-3) D-Dimer 1.18mg/L FEU (<0.50) Sodium Level 137mEq/L (134-144) Potassium Level 4.1mEq/L (3.5-5.2) Chloride Level 95mEq/L (97-108) Carbon Dioxide Level 22mmol/L (18-29) Blood Urea Nitrogen 5mg/dL (6-24) Creatinine 0.54mg/dL (0.76-1.27) Estimat Glomerular Filtration Rate 169mL/min (>59) Glucose Level 95mg/dL (60-99) Calcium Level 9.5mg/dL (8.5-10.1) Magnesium Level 1.8mg/dL (1.6-2.6) Total Bilirubin 0.5mg/dL (0.0-1.2) Aspartate Amino Transf (AST/SGOT) 34U/L (0-50) Alanine Aminotransferase (ALT/SGPT) 40U/L (0-44) Alkaline Phosphatase 103U/L (25-150) Troponin T 0.010ug/L (0.0-0.011) Total Protein 8.2g/dL (6.4-8.4) Albumin 4.8g/dL (3.4-5.0) Hold Cervantes Top Tube Received (Received) Lab values outside NL range: no clinical significance. ECG Interpretation ECG Interpretation: normal sinus rhythm with a rate of 83 ST elevation, probable early repol pattern no change from previous dated 03/14/2017 Time: 22:21 Interpreted by: ED physician X-Ray Chest Interpretation Chest Xray Interpretation: no acute findings Interpretation / Wet Read by: Wet read ED physician Re-Eval/Medical Decision Med Decision/Clinical Course 52-year-old male who presents with chest pain. He is homeless and he has been abusing alcohol. His initial ER chest pain evaluation is negative with the exception of an elevated d-dimer. Chest CT is currently pending. He is starting to have withdrawal symptoms and was placed on a seawall protocol. His case was discussed with Dr. Lugo and he will be admitted to the hospital service. Transitional orders were written and he is currently being boarded in the ER pending bed availability. Source of Hx: Old records Re-Evaluation/Progress #1: Time of Eval: 04:32 Patient Status: Condition improved Re-Evaluation/Progress Note: Pt rechecked, who is resting. Lab results are discussed. Re-Evaluation/Progress #2: Time of Eval: 05:53 Patient Status: Condition improved Re-Evaluation/Progress Note: Pt rechecked, who is resting. The diagnosis and plan for admission are discussed. The pt understands and agrees with the plan. All questions are addressed at this time. Counseled Regarding: Diagnosis, Lab results, Need for admission Discharge & Departure Impression: Primary Impression: Alcohol withdrawal syndrome Complication of substance-induced condition: uncomplicated Qualified Code: F10.230 - Alcohol dependence with withdrawal, uncomplicated Additional Impression: Chest pain Chest pain type: unspecified Qualified Code: R07.9 - Chest pain, unspecified Disposition: Home Discharge Condition All VS Reviewed: Yes Condition: Stable Referrals: Silvana Sams MD (PCP) Scribe Attestation Portions of this note were transcribed by Suni Valles. I, Dr. Sommer personally performed the history, physical exam and medical decision-making; I reviewed and confirmed the accuracy of the information in the transcribed note. copies to: Silvana Sams MD, Howard L MD Mar 15, 2017 00:29 SUNI VALLES Mar 15, 2017 00:58
[2017-03-15] MEDS ORDERED: Thiamine Inj 100 MG in 0.9% Sodium Chloride 50 ML IV ONE (00:40)
[2017-03-15 01:12] LABS: BASOPHILS % (AUTO) 0.4 % (0-3); EOSINOPHILS % (AUTO) 1.1 % (0-5); MONOCYTES % (AUTO) 7.9 % (4-12); Mean Corpuscular Hemoglobin 31.3 pg (27.0-35.0); NEUTROPHILS % (AUTO) 51.3 % (40-74); Platelet Count 361 bil/L (150-400)
[2017-03-15 01:48] LABS: Magnesium 1.8 mg/dL (1.6-2.6); TROPONIN T 0.01 ug/L (0.0-0.011)
[2017-03-15] MEDS ORDERED: Potassium Chloride 20 mEq SR Tablet PO ONE (06:30)
[2017-03-15] MEDS ORDERED: Ondansetron 2 mg/mL 2 mL Inj IVPUSH PRN ×2 (06:45→08:30)
[2017-03-15] MEDS ORDERED: Alum-Mag Hydrox-Simeth 30 mL Suspension PO PRN ×2 (06:45→08:30)
--- NOTE | 2017-03-15 07:41 | DRSVH ---
PROCEDURE: CT ANGIO CHEST PULMONARY EMBOLISM ([id number]) INDICATIONS: left chest pain and elev dimer TECHNIQUE: After the administration of intravenous contrast, 2 mm thick sections acquired from the pulmonary api dianna to the posterior costophrenic angles. 3-dimensional maximum intensity projection (MIP) coronal a nd sagittal reformats were then acquired through the thorax. For radiation dose reduction, the follo wing was used: automated exposure control, adjustment of mA and/or kV according to patient size. COMPARISON: [facility], CR, XR CHEST 2V AP/PA AND LAT, 10/27/2016, 8:[address] [facility], CR, XR CHEST 2VW, 03/15/2017, 0:42. FINDINGS: Image quality: Excellent. Pulmonary arteries: Pulmonary arteries are normal in size, and demonstrate no intraluminal filling d efects to suggest central pulmonary embolism. Lungs and pleura: Lungs are clear. No pleural effusions or pneumothorax. Central and peripheral ai rways are patent. Mediastinum: Heart size is normal, without pericardial effusion. No mediastinal or hilar adenopathy . Thoracic aorta is normal in caliber and enhancement. Esophagus is normal in caliber, without hiat al hernia. Bones and chest wall: No suspicious bony lesions. Ribs and thoracic spine appear intact throughout. Thyroid gland is within normal limits. No axillary or supraclavicular adenopathy. Abdomen: Visualized upper abdominal solid organs appear normal in the early arterial phase of enhanc ement. There is fatty change in the liver. IMPRESSION: 1. Lungs are clear. 2. No evidence for pulmonary embolus. 3. No evidence for aneurysm or dissection of the vessels or aorta. Dictated by: Logan Crowley M.D. on 03/15/2017 at 7:35 this report corresponds to the findings of e preliminary NSR report. Approved by: Logan Crowley M.D. on 03/15/2017 at 7:39
--- NOTE | 2017-03-15 08:00 | NUR ---
CIWA CIWA 18, pt calm in bed and answering questions appropriately. States diazepam is helping. Very tremulous; denies auditory/visual hallucinations, BEEBE. Oriented to date within 1 day. Reports mild nausea and diaphoresis. VSS. Cooperative with cares.
[2017-03-15] MEDS ORDERED: Multivit-Miner-Folic Acid-Iron Tablet PO SCH (08:30)
[2017-03-15] MEDS: Multivit-Miner-Folic Acid-Iron Tablet PO SCH (08:30)
[2017-03-15] MEDS ORDERED: Polyethylene Glycol (PEG) 17 Gm Powder PO PRN (08:30)
--- NOTE | 2017-03-15 08:53 | DRSVH ---
PROCEDURE: X-RAY CHEST, TWO VIEWS ([id number]) INDICATIONS: chest pain TECHNIQUE: 2 views of the chest were acquired. COMPARISON: [facility], CT, CT ANGIO CHEST PE, 03/15/2017, 7:03. [facility], CR, XR CHEST 2VW, 01/29/2016, 10:09. FINDINGS: Surgical changes and devices: None. Lungs and pleura: No pleural effusions or pneumothorax. Lungs are clear. Mediastinum: Mediastinal contours are normal. Heart size is normal. Bones and chest wall: No suspicious bony abnormalities. Soft tissues appear unremarkable. IMPRESSION: No acute cardiopulmonary disease. Dictated by: Xavier Pimentel [facility] Interpreted: Logan Crowley MD on 03/15/2017 at 8:31 Approved by: Logan Crowley M.D. on 03/15/2017 at 8:50
[2017-03-15] MEDS ORDERED: PROP60CA2 PO (11:01)
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
--- NOTE | 2017-03-15 15:37 | PCM.HPMED ---
Subjective Date of Service Mar 15, 2017 Primary Provider: Admitting Physician: Pita Lozano DO Primary Care Physician: Silvana Sams MD Attending Physician: Pita Lozano DO Admit Status: From the Emergency Department Chief Complaint: Alcohol withdrawal History of Present Illness: Dion Treviño is a 52 year old man with a PMH of severe alcoholism with multiple admissions for withdrawal, prior withdrawal seizures, non compliance with outpatient treatment, anxiety, depression, and HTN who presents with chest pain and a desire to detox from alcohol. He had been living at [facility] but was expelled from that facility due to alcohol relapse. He has been essentially homeless and drinking heavily for the past 5 days following 10 days of sobriety. He states that he essentially "Drank until I felt too ill to keep drinking". He expresses a desire for inpatient rehabilitation. He denies recent falls or trauma. In the ED the patient was evaluated for his chest pain with CT angio which was negative for PE, negative Trop and ECG, and overall low suspicion for ACS. Review of Systems: Comprehensive ROS negative except as listed above in the HPI. Allergies Coded Allergies: caffeine (Verified Adverse Reaction, Mild, raises my heart rate too high, 03/14/17) Home Medications Gabapentin (Gabapentin) 400 Mg Capsule 400 MG PO TID Levetiracetam (Levetiracetam) 250 Mg Tablet 250 MG PO BID Lisinopril (Lisinopril) 10 Mg Tablet 10 MG PO HS Metoprolol Tartrate (Metoprolol Tartrate) 50 Mg Tablet 50 MG PO BID Sertraline HCl (Sertraline) 100 Mg Tablet 200 MG PO DAILY Thiamine Mononitrate (Vitamin B-1) 100 Mg Tablet 100 MG PO DAILY . 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 Surgical History Right ankle surgery . Family History Multiple family members with severe alcoholism . Social History Hx Alcohol Use: Yes Hx Substance Use: No Smoking Status: Former Smoker Exam Vital Signs Vital Sign - Last Date Time Temp Pulse Resp B/P Pulse Ox O2 Delivery O2 Flow Rate FiO2 03/15/17 11:25 36.7 88 18 155/83 95 03/15/17 04:35 Room Air Intake and Output 03/14/17 03/14/17 03/15/17 Cumulative From/Thru 15:00 23:00 07:00 03/14/17 22:17 - 03/15/17 06:12 Intake Total 700 ml 700 ml Balance 700 ml 700 ml Intake IV Total 700 ml 700 ml Exam Gen: A/O x3, chronically ill appearing middle aged male in mild acute distress secondary to withdrawal symptoms Neck: Supple, non tender, no thyromegaly, no JVD HEENT: PERRL, no scleral icterus, no conjunctival pallor, mucous membranes dry, EOMI CV: RRR, no murmurs rubs or gallops Resp: Lungs CTA BL, no wheezing rales or rhonchi Abd: mildly distended, mildly tender in epigastric region, no rebound masses or guarding, liver palpable 1cm below costal margin Extr: No clubbing cyanosis or edema Neuro: CN 2-12 grossly intact, no focal neurologic deficit Psych: Patient expressing desire for inpatient rehabilitation, appropriate mood and affect Lab and Diagnostics Labs Item Value Date Time Red Blood Count 4.53 mil/mm3 03/15/17105 Mean Corpuscular Volume 87.0 fL 03/15/17105 Mean Corpuscular Hemoglobin 31.3 pg 03/15/17105 Mean Corpuscular Hemoglobin Concent 36.0 % 03/15/17105 Red Cell Distribution Width 14.4 % 03/15/17105 Neutrophils (%) (Auto) 51.3 % 03/15/17105 Lymphocytes (%) (Auto) 39.3 % 03/15/17105 Monocytes (%) (Auto) 7.9 % 03/15/17105 Basophils (%) (Auto) 0.4 % 03/15/17105 Eosinophils (%) (Auto) 1.1 % 03/15/17105 Estimat Glomerular Filtration Rate 169 mL/min 03/15/17105 Calcium Level 9.5 mg/dL 03/15/17105 Magnesium Level 1.8 mg/dL 03/15/17105 Total Bilirubin 0.5 mg/dL 03/15/17105 Aspartate Amino Transf (AST/SGOT) 34 U/L 03/15/17105 Alanine Aminotransferase (ALT/SGPT) 40 U/L 03/15/17105 Alkaline Phosphatase 103 U/L 8/4/17 0106 Troponin T 0.010 ug/L 03/15/17 0755 Total Protein 8.2 g/dL 03/15/17 0106 Albumin 4.8 g/dL 03/15/17 0106 Result Diagram: 03/15/17 0106 03/15/17 0106 X-Rays, CTs and MRIs X-RAY CHEST, TWO VIEWS IMPRESSION: No acute cardiopulmonary disease. Dictated by: Xavier Pimentel RRA Interpreted: Logan Crowley MD on 03/15/2017 at 8:31 Approved by: Logan Crowley M.D. on 03/15/2017 at 8:50 CT ANGIO CHEST PULMONARY EMBOLISM IMPRESSION: 1. Lungs are clear. 2. No evidence for pulmonary embolus. 3. No evidence for aneurysm or dissection of the vessels or aorta. Dictated by: Logan Crowley M.D. on 03/15/2017 at 7:35 this report corresponds to the findings of the preliminary NSR report. Approved by: Logan Crowley M.D. on 03/15/2017 at 7:39 . 12-lead ECG normal sinus rhythm with a rate of 83 ST elevation, probable early repol pattern no change from previous dated 03/14/2017 . Assessment & Plan Dion Treviño is a 52 year old man with recurrent admissions for alcohol withdrawal presenting with the same, his withdrawal process is typically prolonged and difficult with initial presentation of recalcitrant sentiment about desire to change followed by refusal of inpatient rehabilitation upon completion of his withdrawal process. He underwent cardiopulmonary evaluation due to chest pain in the ED which was essentially negative for PE and ACS. He presented yesterday 03/14/17 for desire for inpatient withdrawal and then left from the ED AMA. Acute alcohol withdrawal, POA. Active -CIWA protocol with Valium as needed -MILLY was 316 03/14 prior to departure AMA from the ED -Chemical dependence tow feeder referral -Patient expressing a desire to inpatient rehabilitation upon presentation -Banana bag given in the ED, will consider daily repletion based upon PO intake -Continue home Levetiracetam for seizure prophylaxis HTN, POA, chronic. Active -Continue home Lisinopril -Continue home Metoprolol Depression, POA, chronic. Active -Continue home Sertraline Neuropathy, POA, chronic. Stable -Likely secondary to alcohol abuse and chronic B12 deficiency -Banana bag as above -Will hold home Gabapentin for the time being due to multiple sedative medications on board Patient Status: Inpatient, anticipated length of stay >2 midnights due to severity of condition, risk of adverse event, and complexity of treatment plan. Pain Evaluation: Adequate Pain Control VTE Prophylaxis: Sub-Q Enoxaparin Resuscitation Status: CPR: Attempt Resuscitation Attending Statement The patient was seen and examined together with Dr. Ashley on 03/15/2017 and I agree with the history, exam and plan as outlined in the note above. . Harley Ashley DO Mar 15, 2017 15:36 Mango Lebron MD Mar 17, 2017 16:18
--- NOTE | 2017-03-15 15:58 | NUR ---
Home medications Patient had home medications in his backpack. Medications consisted of Naproxen 500mg, MAPAP 500mg, and Ibeuprofen. Medications placed in sealed bag and sent to pharmacy.
[2017-03-15] MEDS: Lidocaine Topical 5% Patch TOPICAL PRN (22:28)
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
[2017-03-16 00:31] VITALS: BP 160/90; PULSE 66; RESP 16; O2SAT 97
[2017-03-16 00:39] VITALS: PULSE 73
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
[2017-03-16 06:01] VITALS: BP 144/76; PULSE 69; PULSE 80; RESP 16; O2SAT 98
[2017-03-16] MEDS: Multivit-Miner-Folic Acid-Iron Tablet PO SCH (08:04)
[2017-03-16 09:33] VITALS: BP 155/84; PULSE 64; RESP 18; O2SAT 98
--- NOTE | 2017-03-16 11:51 | PCM.PNMED ---
Subjective Date of Service Mar 16, 2017 Subjective Patient is currently eating breakfast. His only complaint is some left sided chest wall pain. This happened prior to being admitted here. His CTA of chest did not show any significant abnormalities. Exam Vital Signs Vital Sign - Last Date Time Temp Pulse Resp B/P Pulse Ox O2 Delivery O2 Flow Rate FiO2 03/16/17 09:33 36.3 64 18 155/84 98 Room Air Intake and Output 03/15/17 03/15/17 03/16/17 Cumulative From/Thru 15:00 23:00 07:00 03/14/17 22:17 - 03/16/17 05:41 Intake Total 1297 ml 400 ml 2397 ml Output Total 1175 ml 1175 ml Balance 1297 ml -775 ml 1222 ml Intake Oral 1287 ml 400 ml 1687 ml IV Total 10 ml 710 ml Output Urine Total 1175 ml 1175 ml # Voids 3 3 # Bowel Movements 1 0 1 Exam Constitutional: Middle-aged male who looks older than his stated age Head: Normocephalic atraumatic Chest: Clear to auscultation Cor: Regular rate and rhythm S1-S2. There is some tenderness over the left lower lateral chest wall area Abdomen: Soft nontender bowel sounds present Lab and Diagnostics Result Diagram: 03/15/17 0106 03/15/17 0106 X-Rays, CTs and MRIs X-RAY CHEST, TWO VIEWS IMPRESSION: No acute cardiopulmonary disease. Dictated by: Xavier Pimentel [facility] Interpreted: Logan Crowley MD on 03/15/2017 at 8:31 Approved by: Logan Crowley M.D. on 03/15/2017 at 8:50 CT ANGIO CHEST PULMONARY EMBOLISM IMPRESSION: 1. Lungs are clear. 2. No evidence for pulmonary embolus. 3. No evidence for aneurysm or dissection of the vessels or aorta. Dictated by: Logan Crowley M.D. on 03/15/2017 at 7:35 this report corresponds to the findings of the preliminary NSR report. Approved by: Logan Crowley M.D. on 03/15/2017 at 7:39 . 12-lead ECG normal sinus rhythm with a rate of 83 ST elevation, probable early repol pattern no change from previous dated 03/14/2017 . Assessment & Plan Dion Treviño is a 52 year old man with recurrent admissions for alcohol withdrawal presenting with the same, his withdrawal process is typically prolonged and difficult with initial presentation of recalcitrant sentiment about desire to change followed by refusal of inpatient rehabilitation upon completion of his withdrawal process. He underwent cardiopulmonary evaluation due to chest pain in the ED which was essentially negative for PE and ACS. He presented yesterday 03/14/17 for desire for inpatient withdrawal and then left from the ED AMA. Acute alcohol withdrawal, POA. Active -CIWA protocol with Valium as needed -MILLY was 316 03/14 prior to departure AMA from the ED -Chemical dependence start up specialist referral -Patient expressing a desire to inpatient rehabilitation upon presentation -Banana bag given in the ED, will consider daily repletion based upon PO intake -Continue home Levetiracetam for seizure prophylaxis HTN, POA, chronic. Active -Continue home Lisinopril -Continue home Metoprolol Depression, POA, chronic. Active -Continue home Sertraline Neuropathy, POA, chronic. Stable -Likely secondary to alcohol abuse and chronic B12 deficiency -Banana bag as above -Will hold home Gabapentin for the time being due to multiple sedative medications on board Patient Status: Inpatient, anticipated length of stay >2 midnights due to severity of condition, risk of adverse event, and complexity of treatment plan. VTE Prophylaxis: Sub-Q Enoxaparin Resuscitation Status: CPR: Attempt Resuscitation Hiwot Washington MD Mar 16, 2017 11:51
[2017-03-16] MEDS: Ketorolac 15 mg/mL Inj IVPUSH PRN ×2 (12:18→20:38)
[2017-03-16 13:46] VITALS: BP 159/87; PULSE 70; RESP 18; O2SAT 99
[2017-03-16 20:36] VITALS: BP 162/70; PULSE 68; RESP 16; O2SAT 96
--- NOTE | 2017-03-17 02:55 | NUR ---
NOC shift note Patient's CIWA scores have been 3-111, Diazepam given once. Prominent symptoms are anxiety and restlessness, slight headache and slight nausea. Patient has been cooperative and pleasant with staff. Remains alert and oriented. Toradol given for left-sided rib/chest pain, effective. Vital signs stable. Intentional rounding in place. Addendum: 03/17/17 at 2206 by DANIS SHAW RN Correction for above note- CIWA scores of 3-11.
[2017-03-17 05:38] VITALS: BP 158/68; PULSE 70; RESP 16; O2SAT 98
[2017-03-17] MEDS: Multivit-Miner-Folic Acid-Iron Tablet PO SCH (07:44)
[2017-03-17] MEDS: Pantoprazole 40 mg ER24 Tablet PO SCH (07:44)
[2017-03-17] MEDS: Ketorolac 15 mg/mL Inj IVPUSH PRN ×2 (07:55→16:07)
--- NOTE | 2017-03-17 10:39 | NUR ---
Social Work- Initial Assessment Data: See CM Initial Assessment for additional information. Pt is a 52 y.o. male admitted 03/15/17 for etoh intoxication, withdrawals per H&P. Pt's insurance is [employer]. Pt's PCP is Silvana Sams MD. Pt's readmit risk score is 5, high risk, due to multiple ED visits, extensive hx of etoh abuse, and psychosocial barriers including lack of housing. Pt is well known to ED and Acute Care Floor [facility] staff. Pt is a readmit, last admitted 02/21-02/26 for etoh intoxication. Pt discussed in multidisciplinary rounds, pt's CIWA has been approximately 3-5 and pt is likely to d/c tomorrow. Pt requested speaking with [facility] regarding detox and inpatient treatment. SW met with pt at bedside regarding this and completed CD assessment (see alternate note). See information below regarding housing and d/c planning. Pt has no designated personalized living manager nurse for d/c planning. Pt's family is not local or . Pt declined putting any friend contact information as NOK. Pt is currently homeless at this time. [facility] Last admission pt was declined from the [facility] due to etoh use. Pt was also declined return to [facility] due to non-compliance and non-adherence to house rules. Pt has a case packer and sealer at [facility]-- Carmelo [phone]. [facility] is not open on Saturday but pt states that he knows how to contact Carmelo and will follow up after this admission. Pt provided with Carmelo contact number at bedside to use hospital phone tomorrow. MAHIN discussed pt staying with local friends but pt states that his friends all drink and that he would not want to be around them. Pt is receiving CD CM services through [facility]. CM is Ara Holden. Pt reports that last contact with Ara was last week. SW encouraged pt to reach out to her after admission. MAHIN offered [facility] # at bedside. Pt agreeable. Pt has a bike for transportation. Pt states that he will likely attempt to stay at [facility] again and try to stay sober. Pt states that stable housing is his biggest barrier to sobriety at this time. MAHIN provided numerous resources including resources for people facing homelessness, job training resources, food bank resources, contact information for inpatient detox centers, affordable housing resources, and contact information for outpt CD resources. Pt will likely d/c to homelessness to follow up with [facility] and other housing resources provided to him. Pt declined d/c planning checklist at bedside. SW put phone number on whiteboard. SW will continue to follow. Assessment: Pt who is high readmit risk due to psychosocial complexity Plan: Pt likely to d/c to homelessness, housing, job, food bank, inpatient detox centers, and outpt CD resources all provided to pt at bedside. Pt agreeable to plan. SW will continue to follow. SALOME Lechuga Addendum: 03/17/17 at 1058 by ELVIS PARK Amended: Links added.
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
--- NOTE | 2017-03-17 13:31 | PCM.PNMED ---
Subjective Date of Service Mar 17, 2017 Subjective Patient is resting comfortably is quite alert took a shower today. Patient is does have some issues with left-sided chest wall pain. Exam Vital Signs Vital Sign - Last Date Time Temp Pulse Resp B/P Pulse Ox O2 Delivery O2 Flow Rate FiO2 03/17/17 05:38 36.5 70 16 158/68 98 Room Air Intake and Output 03/16/17 03/16/17 03/17/17 Cumulative From/Thru 15:00 23:00 07:00 03/14/17 22:17 - 03/17/17 05:43 Intake Total 2104 ml 400 ml 4901 ml Output Total 300 ml 700 ml 2175 ml Balance 1804 ml -300 ml 2726 ml Intake Oral 2104 ml 400 ml 4191 ml IV Total 710 ml Output Urine Total 300 ml 700 ml 2175 ml # Voids 3 6 # Bowel Movements 1 2 Exam Constitutional: Middle-aged male in no acute distress Head: Normocephalic atraumatic Chest: Clear to auscultation Cor: Regular rate and rhythm S1-S2 without murmur Abdomen: Soft nontender bowel sounds present Extremities: No pedal edema Skin: No rashes Neuro: Alert and oriented 3, motor strength is intact bilaterally Psych: Mood and affect are appropriate IVs and Medications Medications Reviewed: Medications were reviewed in detail Lab and Diagnostics Laboratory Tests 72 Hours Test 03/15/17 01:06 03/15/17 01:07 03/15/17 07:55 White Blood Count 5.2th/mm3 (3.8-10.1) Red Blood Count 4.53mil/mm3 (4.40-5.80) Hemoglobin 14.2g/dL (13.8-17.2) Hematocrit 39.4% (41.0-50.0) Mean Corpuscular Volume 87.0fL (81-100) Mean Corpuscular Hemoglobin 31.3pg (27.0-35.0) Mean Corpuscular Hemoglobin Concent 36.0% (32.0-37.0) Red Cell Distribution Width 14.4% (12.3-15.4) Platelet Count 361bil/L (150-400) Neutrophils (%) (Auto) 51.3% (40-74) Lymphocytes (%) (Auto) 39.3% (14-46) Monocytes (%) (Auto) 7.9% (4-12) Eosinophils (%) (Auto) 1.1% (0-5) Basophils (%) (Auto) 0.4% (0-3) D-Dimer 1.18mg/L FEU (<0.50) Sodium Level 137mEq/L (134-144) Potassium Level 4.1mEq/L (3.5-5.2) Chloride Level 95mEq/L (97-108) Carbon Dioxide Level 22mmol/L (18-29) Blood Urea Nitrogen 5mg/dL (6-24) Creatinine 0.54mg/dL (0.76-1.27) Estimat Glomerular Filtration Rate 169mL/min (>59) Glucose Level 95mg/dL (60-99) Calcium Level 9.5mg/dL (8.5-10.1) Magnesium Level 1.8mg/dL (1.6-2.6) Total Bilirubin 0.5mg/dL (0.0-1.2) Aspartate Amino Transf (AST/SGOT) 34U/L (0-50) Alanine Aminotransferase (ALT/SGPT) 40U/L (0-44) Alkaline Phosphatase 103U/L (25-150) Troponin T 0.010ug/L (0.0-0.011) 0.010ug/L (0.0-0.011) Total Protein 8.2g/dL (6.4-8.4) Albumin 4.8g/dL (3.4-5.0) Hold Cervantes Top Tube Received (Received) Alcohols < 10mg/dL (0-10) Result Diagram: 03/15/1710503/15/17105 X-Rays, CTs and MRIs X-RAY CHEST, TWO VIEWS IMPRESSION: No acute cardiopulmonary disease. Dictated by: Xavier Pimentel RRA Interpreted: Logan Crowley MD on 03/15/2017 at 8:31 Approved by: Logan Crowley M.D. on 03/15/2017 at 8:50 CT ANGIO CHEST PULMONARY EMBOLISM IMPRESSION: 1. Lungs are clear. 2. No evidence for pulmonary embolus. 3. No evidence for aneurysm or dissection of the vessels or aorta. Dictated by: Logan Crowley M.D. on 03/15/2017 at 7:35 this report corresponds to the findings of the preliminary NSR report. Approved by: Logan Crowley M.D. on 03/15/2017 at 7:39 . 12-lead ECG normal sinus rhythm with a rate of 83 ST elevation, probable early repol pattern no change from previous dated 03/14/2017 . Assessment & Plan Dion Treviño is a 52 year old man with recurrent admissions for alcohol withdrawal presenting with the same, his withdrawal process is typically prolonged and difficult with initial presentation of recalcitrant sentiment about desire to change followed by refusal of inpatient rehabilitation upon completion of his withdrawal process. He underwent cardiopulmonary evaluation due to chest pain in the ED which was essentially negative for PE and ACS. He presented yesterday 03/14/17 for desire for inpatient withdrawal and then left from the ED AMA. Acute alcohol withdrawal, POA. 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 Active -Continue home Lisinopril -Continue home Metoprolol Depression, POA, chronic. Active -Continue home Sertraline Neuropathy, POA, chronic. Stable -Likely secondary to alcohol abuse and chronic B12 deficiency -Banana bag as above -Will hold home Gabapentin for the time being due to multiple sedative medications on board Patient Status: Inpatient, anticipated length of stay >2 midnights due to severity of condition, risk of adverse event, and complexity of treatment plan. VTE Prophylaxis: Sub-Q Enoxaparin Resuscitation Status: CPR: Attempt Resuscitation Time spent 20 minutes Hiwot Washington MD Mar 17, 2017 13:30
[2017-03-17 14:02] VITALS: BP 141/73; PULSE 65; RESP 16; O2SAT 97
[2017-03-17] MEDS: Lidocaine Topical 5% Patch TOPICAL PRN (16:06)
--- NOTE | 2017-03-17 17:55 | NUR ---
Rib pain pt c/o 03/21 rib pain x2 that increased with movement. Administered toradol X2 during shift which patient stated that it decreased pain down to a 3-11/19.
[2017-03-17 20:26] VITALS: BP 152/84; PULSE 66; RESP 16; O2SAT 98
--- NOTE | 2017-03-18 03:11 | NUR ---
Uneventful night Patient has slept through most of the night. Reported that left rib pain and nausea are slowly resolving. Calm and cooperative. Intentional rounding in place. CIWA score has been 2-6, mostly for restlessness,anxiety at beginning of shift.
[2017-03-18 06:06] VITALS: BP 130/76; PULSE 64; RESP 18; O2SAT 99
--- NOTE | 2017-03-18 07:45 | PCM.DIMED ---
Discharge Instructions Date of Service Mar 18, 2017 Dates of Hospitalization Mar 15, 2017 at 06:41 Discharge Diagnosis Discharge Diagnosis Alcohol withdrawal Diet Discharge Diet: Heart Healthy Activity Discharge Activity: Other (as tolerated.) Call your provider Call your provider for: Fever or Chills, Shortness of breath, Bleeding, Chest pain, Vomitting, Excessive diarrhea, Weakness (unilateral) Patient Instructions Follow-up Provider: Silvana Sams MD Follow-up with PCP in: 1 week Hiwot Washington MD Mar 18, 2017 07:45
--- NOTE | 2017-03-18 07:51 | PCM.DC.MED ---
Discharge Summary Date of Service Mar 18, 2017 Dates of Hospitalization Date of Hospital Admission Mar 15, 2017 at 06:41 Date of Discharge: Mar 18, 2017 Providers: Admitting Physician: Pita Lozano DO Primary Care Physician: Silvana Sams MD Attending Physician: Hiwot Washington MD Diagnosis at Time of Discharge Diagnosis at Time of Discharge Alcohol withdrawal Procedures XRay, CTs & MRIs X-RAY CHEST, TWO VIEWS IMPRESSION: No acute cardiopulmonary disease. Dictated by: Xavier Pimentel RR Interpreted: Logan Crowley MD on 03/15/2017 at 8:31 Approved by: Logan Crowley M.D. on 03/15/2017 at 8:50 CT ANGIO CHEST PULMONARY EMBOLISM IMPRESSION: 1. Lungs are clear. 2. No evidence for pulmonary embolus. 3. No evidence for aneurysm or dissection of the vessels or aorta. Dictated by: Logan Crowley M.D. on 03/15/2017 at 7:35 this report corresponds to the findings of the preliminary NSR report. Approved by: Logan Crowley M.D. on 03/15/2017 at 7:39 . ECG 12 Lead normal sinus rhythm with a rate of 83 ST elevation, probable early repol pattern no change from previous dated 03/14/2017 . Brief History Dion Treviño is a 52 year old man with a PMH of severe alcoholism with multiple admissions for withdrawal, prior withdrawal seizures, non compliance with outpatient treatment, anxiety, depression, and HTN who presents with chest pain and a desire to detox from alcohol. He had been living at [facility] but was expelled from that facility due to alcohol relapse. He has been essentially homeless and drinking heavily for the past 5 days following 10 days of sobriety. He states that he essentially "Drank until I felt too ill to keep drinking". He expresses a desire for inpatient rehabilitation. He denies recent falls or trauma. In the ED the patient was evaluated for his chest pain with CT angio which was negative for PE, negative Trop and ECG, and overall low suspicion for ACS. Hospital Course Dion Treviño is a 52 year old man with recurrent admissions for alcohol withdrawal presenting with the same, his withdrawal process is typically prolonged and difficult with initial presentation of recalcitrant sentiment about desire to change followed by refusal of inpatient rehabilitation upon completion of his withdrawal process. He underwent cardiopulmonary evaluation due to chest pain in the ED which was essentially negative for PE and ACS. He presented yesterday 03/14/17 for desire for inpatient withdrawal and then left from the ED AMA. Acute alcohol withdrawal, POA. 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 Active -Continue home Lisinopril -Continue home Metoprolol Depression, POA, chronic. Active -Continue home Sertraline Neuropathy, POA, chronic. Stable -Likely secondary to alcohol abuse and chronic B12 deficiency -Banana bag as above Exam Vital Signs (Last) Date Time Temp Pulse Resp B/P Pulse Ox O2 Delivery O2 Flow Rate FiO2 03/18/17 06:06 36.6 64 18 130/76 99 Room Air Exam Constitutional: Middle-aged male in no acute distress Head: Normocephalic atraumatic Eyes: PERRLA DC EOMI Mouth: No lesions Neck: No lesions chest: Clear to auscultation, some tenderness palpation over the left lower chest wall area Cor: Regular rate and rhythm S1-S2 without murmur Abdomen: Soft nontender bowel sounds present Extremities: No pedal edema, does have slight contusion over his left medial ankle area but range of motion is intact without significant problems and no point tenderness Neuro: Alert and oriented 3 Skin: No lesions Psych: Mood and affect appropriate Test 03/15/17 01:06 03/15/17 01:07 03/15/17 07:55 White Blood Count 5.2th/mm3 (3.8-10.1) Red Blood Count 4.53mil/mm3 (4.40-5.80) Hemoglobin 14.2g/dL (13.8-17.2) Hematocrit 39.4% (41.0-50.0) Mean Corpuscular Volume 87.0fL (81-100) Mean Corpuscular Hemoglobin 31.3pg (27.0-35.0) Mean Corpuscular Hemoglobin Concent 36.0% (32.0-37.0) Red Cell Distribution Width 14.4% (12.3-15.4) Platelet Count 361bil/L (150-400) Neutrophils (%) (Auto) 51.3% (40-74) Lymphocytes (%) (Auto) 39.3% (14-46) Monocytes (%) (Auto) 7.9% (4-12) Eosinophils (%) (Auto) 1.1% (0-5) Basophils (%) (Auto) 0.4% (0-3) D-Dimer 1.18mg/L FEU (<0.50) Sodium Level 137mEq/L (134-144) Potassium Level 4.1mEq/L (3.5-5.2) Chloride Level 95mEq/L (97-108) Carbon Dioxide Level 22mmol/L (18-29) Blood Urea Nitrogen 5mg/dL (6-24) Creatinine 0.54mg/dL (0.76-1.27) Estimat Glomerular Filtration Rate 169mL/min (>59) Glucose Level 95mg/dL (60-99) Calcium Level 9.5mg/dL (8.5-10.1) Magnesium Level 1.8mg/dL (1.6-2.6) Total Bilirubin 0.5mg/dL (0.0-1.2) Aspartate Amino Transf (AST/SGOT) 34U/L (0-50) Alanine Aminotransferase (ALT/SGPT) 40U/L (0-44) Alkaline Phosphatase 103U/L (25-150) Total Protein 8.2g/dL (6.4-8.4) Albumin 4.8g/dL (3.4-5.0) Hold Cervantes Top Tube Received (Received) Troponin T 0.010ug/L (0.0-0.011) Alcohols < 10mg/dL (0-10) Discharge Medications Discharge Medications Gabapentin (Gabapentin) 400 Mg Capsule 400 MG PO TID Prescribed by: HILDA NICOLE MD Levetiracetam (Levetiracetam) 250 Mg Tablet 250 MG PO BID Prescribed by: HILDA NICOLE MD Lisinopril (Lisinopril) 10 Mg Tablet 10 MG PO HS Prescribed by: HILDA NICOLE MD Metoprolol Tartrate (Metoprolol Tartrate) 50 Mg Tablet 50 MG PO BID Prescribed by: HILDA NICOLE MD Sertraline HCl (Sertraline) 100 Mg Tablet 200 MG PO DAILY Prescribed by: HILDA NICOLE MD Thiamine Mononitrate (Vitamin B-1) 100 Mg Tablet 100 MG PO DAILY Prescribed by: HILDA NICOLE MD Followup Plan Disposition: Home Discharge Diet: Heart Healthy Discharge Activity: Other (as tolerated.) Follow-up Provider: Silvana Sams MD Follow-up with PCP in: 1 week Time spent 45 minutes copies to: Silvana Sams MD, Cheryl A MD Mar 18, 2017 07:51
[2017-03-18 07:57] VITALS: BP 134/80; PULSE 60; RESP 18; O2SAT 99
[2017-03-18] MEDS: Multivit-Miner-Folic Acid-Iron Tablet PO SCH (08:22)
[2017-03-18] MEDS: Pantoprazole 40 mg ER24 Tablet PO SCH (08:22)
--- NOTE | 2017-03-18 10:10 | NUR ---
Social Work-discharge: Data:EMR reviewed. Pt is on day 3 of hospitalization for alcohol intoxication per H&P. Pt is medically stable at this time. SW followed up with pt at bedside, SW Role explained. Pt states he plans to follow up with [facility] today so he can get his medications. Pt plans to continue to work with [facility] for treatment options. Pt states he is meeting with Carmelo mendez from [facility] to further discuss Housing options. Resources provided for inpt detox centers, outpt CD resources, housing resources, and food bank resources.Pt denies having any questions at this time. Pt states he is able to return to [facility] if he would like to, but pt is unsure if he wants to do this. Pt states he has his bike for transport today. No other SW needs identified. All updated and agreeable to plan. Assessment:Pt to discharge back to homelessness. Plan:Pt to discharge back to Homelessness today via Bike. Pt to follow up with [facility] at [facility] today and will get his medications. Pt to have appointment with Carmelo from [facility] for housing today. Resources provided for inpt detox centers, outpt CD resources, housing resources, and food bank resources. Pt also has option to go to [facility] if he wants to.No other SW needs identified. All updated and agreeable to plan. SALOME Mendez
--- NOTE | 2017-03-18 12:25 | NUR ---
DISCHARGE Pt discharged at 1220 this afternoon, amb off unit accompanied by PHYSICIAN SCIENTIST. Pt denies any pain/discomfort at this time. Vital signs stable and in no apparent distress. All belongings unlocked from closet and returned as well as medications in pharmacy. IV dc'd intact. All instructions for diet, activity, medications, prescriptions and follow up reviewed with pt who reports understanding. ornamental iron worker from [facility] by to visit pt prior to discharge to coordinate housing.
--- NOTE | 2017-03-18 14:45 | NUR ---
spiritual care: routine brief greeting/well wishes as pt discharging. pt known to metal casting trades worker from previous hospitalizations.
== END 2017-03-18 12:30 | disposition home or self-care (01) | DRG 897 ==
LOC: SED 21:54 → OFED 03-15 06:41 → MPC 03-15 10:59
PROVIDERS: ADMIT Internal Medicine; ATTEND Specialist
DX: F10.239 Alcohol dependence with withdrawal, unspecified (principal); K70.30 Alcoholic cirrhosis of liver without ascites; E53.8 Deficiency of other specified B group vitamins; F12.90 Cannabis use, unspecified, uncomplicated; I10 Essential (primary) hypertension; F41.9 Anxiety disorder, unspecified; G62.9 Polyneuropathy, unspecified; F32.9 Major depressive disorder, single episode, unspecified; G40.909 Epilepsy, unspecified, not intractable, without status epilepticus; Z87.891 Personal history of nicotine dependence; Z59.0 Homelessness; Z91.19 Patient's noncompliance with other medical treatment and regimen

== ENCOUNTER 2017-04-17 23:04 | Emergency (ER) | payer OTHER ==
[~2017-04-17] VITALS: Ht 167.6 cm; Wt 77.3 kg
[2017-04-17 23:14] VITALS: BP 136/78; PULSE 78; RESP 16; O2SAT 96
--- NOTE | 2017-04-17 23:37 | ED.REPORT ---
HPI-General Illness Date of Service Apr 17, 2017 ED Provider: Zaheer Dave MD Pt is a 52 y/o male w/ a hx of chronic alcoholism, depression, anxiety, alcoholic seizures and DTs, liver cirrhosis, presenting to the ED from a detox facility due to alcohol withdrawal. The patient was [facility] because his blood alcohol level was 266 and they require the level to be less than 225. They are also requesting that we prescribe him an Ativan taper. His last alcoholic beverage was this morning "a couple of beers ". He is experiencing mild withdrawal symptoms at this time. Nursing Notes Stated Complaint: FROM DETOX Chief Complaint: Substance Abuse Nursing Notes Reviewed: Yes Allergies: Coded Allergies: caffeine (Verified Adverse Reaction, Mild, raises my heart rate too high, 04/17/17) Scheduled Gabapentin (Gabapentin) 400 Mg Capsule 400 MG PO TID Levetiracetam (Levetiracetam) 250 Mg Tablet 250 MG PO BID Lisinopril (Lisinopril) 10 Mg Tablet 10 MG PO HS Metoprolol Tartrate (Metoprolol Tartrate) 50 Mg Tablet 50 MG PO BID Sertraline HCl (Sertraline) 100 Mg Tablet 200 MG PO DAILY Thiamine Mononitrate (Vitamin B-1) 100 Mg Tablet 100 MG PO DAILY General Time Seen by MD: 23:36 Chief Complaint Other (alcohol detox) Hx Obtained From: Patient Arrived By: Walk-in Sudden in Onset?: No Onset Occurred: 9 - 12 hours ago Symptom Duration: Since onset Severity: Current: No pain currently Severity: Maximum: No pain Recent Healthcare: Previous diagnosis Similar Sx Previous: Yes Past Medical History Past Medical History Alcoholism Depression Anxiety Seizures secondary to withdrawal HTN- taking Metoprolol PTSD Chronic dental infection Carpal tunnel syndrome Low back pain Cirrhosis of the liver related to EtOH abuse Delirium tremens Past Surgical History Right ankle surgery Family History Noncontributory Smoking History Former Smoker Social History Alcohol Use: >5 per day Drug Use: THC Other Social History: Frequent ED visitor, Homeless Occupation Homeless, 01/01/2017 Ambulatory Status Independent Review of Systems Full Review of Systems Constitutional: Denies: Fever Respiratory: Denies: Shortness of breath Cardiovascular: Denies: Chest pain GI: Denies: Vomiting Neurologic: Denies: Confusion, Headache, Seizure Psychiatric: Denies: Delusional Complete sys rev & neg: except as marked. Physical Exam Vital Signs Vital Signs Date Time Temp Pulse Resp B/P Pulse Ox O2 Delivery O2 Flow Rate FiO2 04/18/17 01:58 36.4 87 16 119/68 100 Room Air 04/17/17 23:14 36.6 78 16 136/78 96 Room Air Initial VS: Reviewed, Vital signs normal Head / Eyes: Atraumatic, Normocephalic, PERRL ENT: Mucous membranes moist, Conjunctiva normal, No scleral icterus Neck: Full range of motion Respiratory: Breath sounds normal, Clear to auscultation, No respiratory distress Cardiovascular: Regular rate & rhythm, Heart sounds normal, Intact distal pulses Extremities: Vascular intact, Neuro intact, No swelling Skin: Warm, Dry, No cyanosis Neurologic: Alert, Oriented, Nonfocal Psychiatric: Mood/affect normal, Behavior normal, Normal thought content General/Constitutional: Awake, Alert, No acute distress, Cooperative, Not toxic appearing No significant withdrawal Abdomen: Atraumatic, Soft, No guarding, No rebound, No distention, No palpable mass Tenderness/Guarding/Rebound: Positive: Tender RUQ... (Mild) Re-Eval/Medical Decision Med Decision/Clinical Course 52-year-old chronic alcoholism presents needing detox support meds for return to crisis. He is provided with a lorazepam dose here, lorazepam 2 mg taper. Ondansetron prepack. Discharge now in stable condition for detox at crisis. Source of Hx: Old records Time of Eval: 00:16 Re-Evaluation/Progress Note: Pt rechecked. Informed pt of plan for discharge. Pt understands and agrees with plan for discharge. F/U instructions and RTER warnings given. All questions addressed. Time of Eval: 00:52 Re-Evaluation/Progress Note: Now requesting to be discharged home instead of to a detox facility. I was able to convince him to go to detox. Counseled Regarding: Diagnosis, Need for follow-up, When/why to return to ED Discharge & Departure Primary Impression: Alcohol withdrawal Complication of substance-induced condition: uncomplicated Qualified Code: F10.230 - Alcohol dependence with withdrawal, uncomplicated Additional Impression: Alcohol abuse Disposition: Home (CRISIS RESPITE) Discharge Condition All VS Reviewed: Yes Condition: Stable Patient Instructions: Alcohol Withdrawal (ED) Additional Instructions: Go to crisis and take medicines as directed by staff. Follow-up with your doctor in the office. Good luck with your recovery. Referrals: Silvana Sams MD (PCP) Scribe Attestation Portions of this note were transcribed by Edwar Young. I, Dr. Dave, personally performed the history, physical exam and medical decision-making; I reviewed and confirmed the accuracy of the information in the transcribed note. copies to: Silvana Sams MD, Christopher W MD Apr 17, 2017 23:37 EDWAR YOUNG Apr 17, 2017 23:42
[2017-04-17] MEDS ORDERED: _LORazepam 2 MG Tablet PO SCH (23:40)
[2017-04-17] MEDS ORDERED: _Ondansetron ODT 4 mg Tablet PO PRN (23:40)
[2017-04-18] MEDS ORDERED: LORazepam 2 mg Tablet PO ONE (00:20)
[2017-04-18 01:58] VITALS: BP 119/68; PULSE 87; RESP 16; O2SAT 100
== END 2017-04-18 01:58 | disposition home or self-care (01) ==
LOC: SED 23:04
DX: F10.230 Alcohol dependence with withdrawal, uncomplicated (principal); I10 Essential (primary) hypertension; F41.8 Other specified anxiety disorders; F43.10 Post-traumatic stress disorder, unspecified; Z98.890 Other specified postprocedural states; Z87.891 Personal history of nicotine dependence; Z59.0 Homelessness; Z88.8 Allergy status to other drugs, medicaments and biological substances

== ENCOUNTER 2017-04-28 21:40 | Emergency (ER) | payer OTHER ==
[~2017-04-28] VITALS: Ht 167.6 cm; Wt 80.9 kg
[2017-04-28 22:04] VITALS: BP 155/79; PULSE 89; RESP 16; O2SAT 98
--- NOTE | 2017-04-28 22:17 | ED.REPORT ---
HPI-Overdose/Alcohol Toxicity Date of Service Apr 28, 2017 ED Provider: Perry Sommer MD The pt is a 52 y/o male w/ a hx of alcoholism, depression, anxiety, PTSD, and HTN presenting to the ED seeking to detox from alcohol. He is also complaining of chest pain and R sided torso pain. Denies abdominal pain. Nursing Notes Stated Complaint: DETOX-- Chief Complaint: Alcohol detox Nursing Notes Reviewed: Yes Allergies: Coded Allergies: caffeine (Verified Adverse Reaction, Mild, raises my heart rate too high, 04/28/17) Scheduled Gabapentin (Gabapentin) 400 Mg Capsule 400 MG PO TID Levetiracetam (Levetiracetam) 250 Mg Tablet 250 MG PO BID Lisinopril (Lisinopril) 10 Mg Tablet 10 MG PO HS Metoprolol Tartrate (Metoprolol Tartrate) 50 Mg Tablet 50 MG PO BID Sertraline HCl (Sertraline) 100 Mg Tablet 200 MG PO DAILY Thiamine Mononitrate (Vitamin B-1) 100 Mg Tablet 100 MG PO DAILY General Time Seen by Provider: 22:30 Chief Complaint Other (Alcohol detox ) Hx Obtained From: Patient Arrived By: Walk-in Onset Occurred: Just prior to arrival Symptom Duration: Since onset Recent Healthcare: Recent doctor visit, Recent hospitalization Similar Sx Previous: Yes Past Medical History Past Medical History Alcoholism Depression Anxiety Seizures secondary to withdrawal HTN- taking Metoprolol PTSD Chronic dental infection Carpal tunnel syndrome Low back pain Cirrhosis of the liver related to EtOH abuse Delirium tremens Past Surgical History Right ankle surgery Family History Noncontributory Smoking History Former Smoker Social History Alcohol Use: >5 per day Drug Use: THC Other Social History: Frequent ED visitor, Homeless Occupation Homeless, 01/01/2017 Ambulatory Status Independent Review of Systems R sided torso pain; Cardiovascular: Reports: Chest pain GI: Denies: Abdominal pain Complete sys rev & neg: except as marked. Physical Exam Initial Vital Signs Vital Signs (First) Date Time Temp Pulse Resp B/P Pulse Ox O2 Delivery O2 Flow Rate FiO2 04/28/17 22:04 37.0 89 16 155/79 98 Room Air Initial VS: Reviewed, Vital signs normal ENT: Mucous membranes moist, Conjunctiva normal, No scleral icterus Extremities: Vascular intact, Neuro intact, No swelling, No tenderness Skin: Warm, Dry, No cyanosis General/Constitutional: Awake, Alert Pt smells of intoxicants and appears intoxicated; Tremulous and jittery; Respiratory / Chest: Atraumatic, Breath sounds NL, Breath sounds = bilat Cardiovascular: Heart rate NL, Regular rhythm, Heart sounds NL, Peripheral circulation NL Abdomen: Atraumatic, Soft, Non-tender Neurologic: Speech NL, No motor deficits Psychiatric: Affect NL, Mood NL Interpretation & Diagnostics Lab Results Interpretation Result Diagram: 04/28/17225104/28/17 225 Test 04/28/17 22:52 04/28/17 22:53 White Blood Count 3.2th/mm3 (3.8-10.1) Red Blood Count 4.70mil/mm3 (4.40-5.80) Hemoglobin 14.6g/dL (13.8-17.2) Hematocrit 41.3% (41.0-50.0) Mean Corpuscular Volume 87.9fL (81-100) Mean Corpuscular Hemoglobin 31.1pg (27.0-35.0) Mean Corpuscular Hemoglobin Concent 35.4% (32.0-37.0) Red Cell Distribution Width 13.6% (12.3-15.4) Platelet Count 152bil/L (150-400) Neutrophils (%) (Auto) 44.3% (40-74) Lymphocytes (%) (Auto) 43.6% (14-46) Monocytes (%) (Auto) 10.9% (4-12) Eosinophils (%) (Auto) 0.9% (0-5) Basophils (%) (Auto) 0.3% (0-3) Sodium Level 136mEq/L (134-144) Potassium Level 4.1mEq/L (3.5-5.2) Chloride Level 95mEq/L (97-108) Carbon Dioxide Level 22mmol/L (18-29) Blood Urea Nitrogen 8mg/dL (6-24) Creatinine 0.45mg/dL (0.76-1.27) Estimat Glomerular Filtration Rate 208mL/min (>59) Glucose Level 98mg/dL (60-99) Calcium Level 8.7mg/dL (8.5-10.1) Magnesium Level 1.8mg/dL (1.6-2.6) Total Bilirubin 0.3mg/dL (0.0-1.2) Aspartate Amino Transf (AST/SGOT) 27U/L (0-50) Alanine Aminotransferase (ALT/SGPT) 20U/L (0-44) Alkaline Phosphatase 93U/L (25-150) Total Protein 8.0g/dL (6.4-8.4) Albumin 4.7g/dL (3.4-5.0) Lipase 60U/L (13-60) Hold Cervantes Top Tube Received (Received) Lab values outside NL range: no clinical significance. ECG Interpretation ECG Interpretation: Rate [address] elevation, probable normal early repol patter Time: 22:56 Interpreted by: ED physician Re-Eval/Medical Decision Med Decision/Clinical Course 52-year-old male well known to us for chronic alcoholism presents for medical clearance for detox. He has not had l labs done since March 15 so these were repeated and there were no significant abnormalities. [facility] with a tapering dose prepack of lorazepam. Source of Hx: Old records Counseled Regarding: Diagnosis, Lab results, Need for follow-up, When/why to return to ED Discharge & Departure Impression: Primary Impression: Alcohol use disorder, severe, dependence Additional Impression: Alcohol intoxication Complication of substance-induced condition: uncomplicated Qualified Code: F10.120 - Alcohol abuse with intoxication, uncomplicated )( Condition at Discharge: No danger to self, No danger to others, No suicidal ideation, No homicidal ideation, Clear for alcohol rehab Disposition: Home Discharge Condition All VS Reviewed: Yes Condition: Stable Patient Instructions: Alcohol Withdrawal (ED) Additional Instructions: Go directly to [facility] by taxi. We have not included a tapering dose prepack of Ativan to help prevent withdrawal symptoms. Return to the emergency room if you are unable to keep the Ativan down or if you have further severe withdrawal symptoms. Referrals: Silvana Sams MD (PCP) Scribe Attestation Portions of this note were transcribed by Savage Light. I, Dr. Sommer personally performed the history, physical exam and medical decision-making; I reviewed and confirmed the accuracy of the information in the transcribed note. copies to: Silvana Sams MD, Howard L MD Apr 28, 2017 22:17 Savage Light Apr 28, 2017 22:55
[2017-04-28] MEDS ORDERED: LORazepam 2 mg Tablet PO ONE (22:40)
[2017-04-28 23:02] LABS: BASOPHILS % (AUTO) 0.3 % (0-3); EOSINOPHILS % (AUTO) 0.9 % (0-5); MONOCYTES % (AUTO) 10.9 % (4-12); Mean Corpuscular Hemoglobin 31.1 pg (27.0-35.0); Mean Corpuscular Volume 87.9 fL (81-100); NEUTROPHILS % (AUTO) 44.3 % (40-74); Platelet Count 152 bil/L (150-400)
[2017-04-28 23:32] LABS: Magnesium 1.8 mg/dL (1.6-2.6)
[2017-04-29] MEDS ORDERED: _LORazepam 2 MG Tablet PO SCH (00:05)
[2017-04-29 00:46] VITALS: BP 148/83; PULSE 99; RESP 13; O2SAT 97
== END 2017-04-29 00:58 | disposition other institution (70) ==
LOC: SED 21:40
DX: F10.229 Alcohol dependence with intoxication, unspecified (principal); R07.9 Chest pain, unspecified; I10 Essential (primary) hypertension; F41.8 Other specified anxiety disorders; Z87.81 Personal history of (healed) traumatic fracture; Z98.890 Other specified postprocedural states; Z87.891 Personal history of nicotine dependence; Z91.018 Allergy to other foods

== ENCOUNTER 2017-05-06 10:23 | Emergency (ER) | payer OTHER ==
[2017-05-06 10:28] VITALS: BP 153/89; PULSE 67; RESP 18; O2SAT 97
--- NOTE | 2017-05-06 10:53 | ED.REPORT ---
HPI-General Illness Date of Service May 06, 2017 ED Provider: Saarh Cool MD Patient is a 52 year old male with a history of alcohol abuse and hypertension who [facility] acutely intoxicated and wants help getting back to [facility] for detox. Nursing Notes Stated Complaint: BAL .326,LT ARM PAIN Chief Complaint: Chest Pain Nursing Notes Reviewed: Yes Allergies: Coded Allergies: caffeine (Verified Adverse Reaction, Mild, raises my heart rate too high, 05/06/17) Scheduled Gabapentin (Gabapentin) 400 Mg Capsule 400 MG PO TID Levetiracetam (Levetiracetam) 250 Mg Tablet 250 MG PO BID Lisinopril (Lisinopril) 10 Mg Tablet 10 MG PO HS Metoprolol Tartrate (Metoprolol Tartrate) 50 Mg Tablet 50 MG PO BID Sertraline HCl (Sertraline) 100 Mg Tablet 200 MG PO DAILY Thiamine Mononitrate (Vitamin B-1) 100 Mg Tablet 100 MG PO DAILY General Time Seen by MD: 10:50 Chief Complaint Medical clearance Hx Obtained From: Patient Arrived By: Walk-in Recent Healthcare: Recent doctor visit, Recent hospitalization Similar Sx Previous: Yes Past Medical History Past Medical History Alcoholism Depression Anxiety Seizures secondary to withdrawal HTN- taking Metoprolol PTSD Chronic dental infection Carpal tunnel syndrome Low back pain Cirrhosis of the liver related to EtOH abuse Delirium tremens Past Surgical History Right ankle surgery Family History Noncontributory Smoking History Former Smoker Social History Alcohol Use: >5 per day Drug Use: THC Other Social History: Frequent ED visitor, Homeless Occupation Homeless, 01/01/2017 Ambulatory Status Independent Review of Systems Unable to Obtain ROS Patient condition, Intoxicated Physical Exam Vital Signs Vital Signs Date Time Temp Pulse Resp B/P Pulse Ox O2 Delivery O2 Flow Rate FiO2 05/06/17 10:28 36.6 67 18 153/89 97 Room Air Initial VS: Reviewed Re-Eval/Medical Decision Time of Eval: 11:33 Re-Evaluation/Progress Note: Patient has chosen to leave the ER prior to full medical evaluation. He safely navigated his way out of the department. Discharge & Departure Primary Impression: Chest pain Chest pain type: unspecified Qualified Code: R07.9 - Chest pain, unspecified Additional Impression: Alcohol abuse Disposition: Home (left prior to full evaluation and without discharge information) Discharge Condition All VS Reviewed: Yes Condition: Stable Referrals: Silvana Sams MD (PCP) Jerry Attestation Portions of this note were transcribed by Maria C Burns. I, Dr. Cool personally performed the history, physical exam and medical decision-making; I reviewed and confirmed the accuracy of the information in the transcribed note. Signed by: Jerry Taylor, 05/06/17. copies to: Silvana Sams MD, Shawna L MD May 06, 2017 10:53 Hanh Burns May 06, 2017 11:14 reviewed and confirmed the accuracy of the information in the transcribed note. Signed by: Jerry Taylor, 05/06/17. copies to: Silvana Sams MD, Shawna L MD May 06, 2017 10:53 Hanh Burns May 06, 2017 11:14
== END 2017-05-06 11:28 | disposition home or self-care (01) ==
LOC: SED 10:23
DX: R07.9 Chest pain, unspecified (principal); F10.129 Alcohol abuse with intoxication, unspecified; I10 Essential (primary) hypertension; F41.8 Other specified anxiety disorders; Z87.891 Personal history of nicotine dependence; Z59.0 Homelessness; Z88.8 Allergy status to other drugs, medicaments and biological substances

== ENCOUNTER 2017-05-07 23:03 | Emergency (ER) | payer OTHER ==
[~2017-05-07] VITALS: Ht 167.6 cm; Wt 178.0 kg
[2017-05-07 23:27] VITALS: BP 143/85; PULSE 71; RESP 18; O2SAT 98
--- NOTE | 2017-05-07 23:53 | ED.REPORT ---
HPI-Overdose/Alcohol Toxicity Date of Service May 07, 2017 ED Provider: Perry Sommer MD The patient is a 52 year old male with a history of alcoholism, HTN, depression , and arthritis presenting to the ED due to alcohol consumption. He claims that he just wants to get some rest. The patient claimed that he got into "an altercation with the police" after he broke in through a window of his "own place" in [place]. He denies suicidal ideation and depression. The HPI is limited due to patient condition. Nursing Notes Stated Complaint: WITHDRAWALS Chief Complaint: Substance Abuse Nursing Notes Reviewed: Yes Allergies: Coded Allergies: caffeine (Verified Adverse Reaction, Mild, raises my heart rate too high, 05/07/17) Scheduled Gabapentin (Gabapentin) 400 Mg Capsule 400 MG PO TID Levetiracetam (Levetiracetam) 250 Mg Tablet 250 MG PO BID Lisinopril (Lisinopril) 10 Mg Tablet 10 MG PO HS Metoprolol Tartrate (Metoprolol Tartrate) 50 Mg Tablet 50 MG PO BID Sertraline HCl (Sertraline) 100 Mg Tablet 200 MG PO DAILY Thiamine Mononitrate (Vitamin B-1) 100 Mg Tablet 100 MG PO DAILY General Time Seen by Provider: 23:45 Chief Complaint Intoxicated, alcohol Initial Psychiatric Assessment: Deny suicidal intent/plan Hx Obtained From: Patient Arrived By: Walk-in Onset Occurred: 1 - 4 hours ago Symptom Duration: Since onset Immunizations: Unknown Recent Healthcare: Recent doctor visit, Recent hospitalization Similar Sx Previous: Yes Risk-Overdose/Alcohol Tox )( Suicide Risk Stratification RF Statements: Risk factors reviewed Past Medical History Past Medical History Alcoholism Depression Anxiety Seizures secondary to withdrawal HTN- taking Metoprolol PTSD Chronic dental infection Carpal tunnel syndrome Low back pain 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 Physical Exam Initial Vital Signs Vital Signs (First) Date Time Temp Pulse Resp B/P Pulse Ox O2 Delivery O2 Flow Rate FiO2 05/07/17 23:27 36.3 71 18 143/85 98 Room Air Initial VS: Reviewed, Vital signs normal Head / Eyes: Atraumatic, Normocephalic ENT: Mucous membranes moist Neck: Supple, Full range of motion Back: No CVA tenderness Lymphatic: No lymphadenopathy Extremities: Vascular intact, Neuro intact Skin: Warm, Dry General/Constitutional: Awake, No acute distress Appearance / Presentation: Positive: Intoxicated Smells of alcohol Respiratory / Chest: Atraumatic, Breath sounds NL, Breath sounds = bilat, No respiratory distress Cardiovascular: Heart rate NL, Regular rhythm, Heart sounds NL Abdomen: Atraumatic, Soft, Non-tender Neurologic: No motor deficits, No sensory deficits Pleasantly intoxicated Psychiatric: Affect NL, Mood NL Re-Eval/Medical Decision Med Decision/Clinical Course 52-year-old intoxicated male who was in an argument with the police. There is no specific injury. Physical examination is normal. He has no interest in treatment at this time. He slept here for a couple hours until he was more alert and fully oriented and ambulatory and fully conversant. Re-Evaluation/Progress : Time of Eval: 01:26 Re-Evaluation/Progress Note: Patient rechecked. Discussed plan for discharge. Patient understands and agrees with plan. All questions addressed at this time. Counseled Regarding: Diagnosis, Need for follow-up, When/why to return to ED Discharge & Departure Impression: Primary Impression: Alcohol intoxication Complication of substance-induced condition: uncomplicated Qualified Code: F10.120 - Alcohol abuse with intoxication, uncomplicated Additional Impression: Acute situational disturbance )( Condition at Discharge: No danger to self, No danger to others, No suicidal ideation, No homicidal ideation Disposition: Home Discharge Condition All VS Reviewed: Yes Condition: Improved Patient Instructions: Alcohol Intoxication (ED) Additional Instructions: Cut back on your drinking. Home to sleep. Referrals: Silvana Sams MD (PCP) Scribe Attestation Portions of this note were transcribed by Ramana Esparza. I, Dr. Sommer personally performed the history, physical exam and medical decision-making; I reviewed and confirmed the accuracy of the information in the transcribed note. Signed by: Jerry Prince, 05/08/2017 copies to: Silvana Sams MD, Howard L MD May 07, 2017 23:52 May 08, 2017 00:09
== END 2017-05-08 02:15 | disposition home or self-care (01) ==
LOC: SED 23:03
DX: F10.120 Alcohol abuse with intoxication, uncomplicated (principal); F43.0 Acute stress reaction; I10 Essential (primary) hypertension; F41.8 Other specified anxiety disorders; Z87.891 Personal history of nicotine dependence; Z59.0 Homelessness; Z88.8 Allergy status to other drugs, medicaments and biological substances